=== PATIENT | male | born 1960 | race African-American/Black ===

== ENCOUNTER 2019-09-20 20:52 | Emergency (ER) | payer OTHER ==
[~2019-09-20] VITALS: Ht 188 cm; Wt 95.7 kg
[2019-09-20 21:21] VITALS: BP 148/91
[2019-09-20] MEDS ORDERED: methylPREDNISolone SOD SUCC 125 MG/2 ML VL IM ONE (22:00)
[2019-09-20] MEDS ORDERED: KETOROLAC TROMETH 60MG/2ML VIAL IM ONE (22:00)
== END 2019-09-20 23:11 | disposition home or self-care (01) ==
LOC: ER 20:52
DX: M10.9 Gout, unspecified (principal); M79.674 Pain in right toe(s)
CPT/HCPCS: 73630; 96372; 99284; J1885; J2930

== ENCOUNTER 2019-10-19 20:21 | Emergency (ER) | payer OTHER ==
[~2019-10-19] VITALS: Ht 188 cm; Wt 86.2 kg
[2019-10-19 22:35] LABS: Basophils # (auto) 0 10 ^3/uL (0-0.2); Basophils % (auto) 0.5 % (0.0-2.0); Eosinophils # (auto) 0.1 10 ^3/uL (0-0.8); Eosinophils % (auto) 1.4 % (0.0-7.0); Hematocrit 46.3 % (41.0-53.0); Hemoglobin 15.7 g/dL (13.5-17.5); Mean Corpuscular Hemoglobin 32.5 pg (28.0-32.0); Mean Corpuscular Hgb Conc. 33.9 g/dL (32.0-36.0); Mean Corpuscular Volume 95.9 fL (80.0-100.0); Monocytes # (auto) 0.5 10 ^3/uL (0-1.3); Monocytes % (auto) 6.6 % (0.0-12.0); Neutrophils # (auto) 5.1 10 ^3/uL (1.6-8.6); Neutrophils % (auto) 65.5 % (37.0-80.0); Nucleated Red Blood Cells % 0.1 %; Platelet Count (auto) 266 10^3/uL (140-450); Red Blood Cells 4.83 10^6/uL (4.5-5.90); White Blood Cell 7.8 10^3/uL (4.4-10.8)
[2019-10-19 22:52] LABS: INR 0.98 (0.9-1.15); Partial Thromboplastin Time 27.5 sec (23.64-32.05)
[2019-10-19 22:56] LABS: Alanine Aminotransferase 41 U/L (16-61); Albumin 3.4 g/dL (3.4-5.0); Amylase 43 U/L (25-115); Anion Gap 6 (5-15); Blood Urea Nitrogen 7 mg/dL (7-18); Calcium 8.7 mg/dL (8.5-10.1); Carbon Dioxide 28 mmol/L (21-32); Chloride 103 mmol/L (98-107); Glucose 87 mg/dL (74-106); Lipase 52 U/L (73-393); Potassium 3.3 mmol/L (3.5-5.1); Sodium 137 mmol/L (136-145)
[2019-10-19 23:01] LABS: Alkaline Phosphatase 105 U/L (45-117); Aspartate Aminotransferase 49 U/L (15-37); Bilirubin, Total 0.6 mg/dL (0.2-1.0); GFR African American 114 mL/min; GFR Non-African American 95 mL/min; Total Protein 8.1 g/dL (6.4-8.2)
[2019-10-20 03:43] VITALS: BP 162/109
== END 2019-10-20 03:52 | disposition home or self-care (01) ==
LOC: ER 20:21
DX: K52.9 Noninfective gastroenteritis and colitis, unspecified (principal); R11.2 Nausea with vomiting, unspecified; Z88.0 Allergy status to penicillin
CPT/HCPCS: 36415; 74176; 80053; 82150; 83605; 83690; 83735; 84484; 85025; 85610; 85730; 87040; 93005

== ENCOUNTER 2020-02-02 12:59 | Inpatient (IN) | payer OTHER ==
[~2020-02-02] VITALS: Ht 188 cm; Wt 92.0 kg
[2020-02-02] MEDS ORDERED: ONDANSETRON HCL 4 MG/2 ML VIAL IV ONE ×2 (13:15→17:00)
[2020-02-02] MEDS ORDERED: MORPHINE SULFATE 4 MG/ML SYR/VIAL IV ONE (13:15)
[2020-02-02] MEDS ORDERED: SODIUM CHLORIDE 0.9% 1,000 ML IV ONE (13:15)
[2020-02-02] MEDS ORDERED: SODIUM CHLORIDE 0.9% 1,000 ML IVB ONE (13:15)
[2020-02-02 14:05] LABS: Basophils # (auto) 0.1 10 ^3/uL (0-0.2); Eosinophils # (auto) 0.1 10 ^3/uL (0-0.8); Eosinophils % (auto) 1.4 % (0.0-7.0); Hematocrit 51.1 % (41.0-53.0); Hemoglobin 17.1 g/dL (13.5-17.5); Lymphocytes # (auto) 2.7 10 ^3/uL (0.4-5.4); Lymphocytes % (auto) 34.3 % (10.0-50.0); Mean Corpuscular Hemoglobin 31.7 pg (28.0-32.0); Mean Corpuscular Hgb Conc. 33.4 g/dL (32.0-36.0); Mean Corpuscular Volume 94.9 fL (80.0-100.0); Monocytes # (auto) 0.4 10 ^3/uL (0-1.3); Monocytes % (auto) 5.7 % (0.0-12.0); Neutrophils # (auto) 4.5 10 ^3/uL (1.6-8.6); Neutrophils % (auto) 57.6 % (37.0-80.0); Platelet Count (auto) 286 10^3/uL (140-450); Red Blood Cells 5.39 10^6/uL (4.5-5.90); Red Cell Distribution Width 14.4 % (11.8-14.3); White Blood Cell 7.9 10^3/uL (4.4-10.8)
[2020-02-02 14:20] LABS: INR 1.01 (0.9-1.15); Partial Thromboplastin Time 28.7 sec (23.0-31.2)
[2020-02-02 14:24] LABS: Albumin 3.4 g/dL (3.4-5.0); Anion Gap 5 (5-15); BUN/Creatinine Ratio 6.7; Blood Urea Nitrogen 7 mg/dL (7-18); Calcium 9.2 mg/dL (8.5-10.1); Carbon Dioxide 27 mmol/L (21-32); Chloride 104 mmol/L (98-107); GFR African American 93 mL/min; GFR Non-African American 77 mL/min; Glucose 89 mg/dL (74-106); Lipase 54 U/L (73-393); Potassium 3.4 mmol/L (3.5-5.1); Sodium 136 mmol/L (136-145)
[2020-02-02 14:29] LABS: Alanine Aminotransferase 30 U/L (16-61); Alkaline Phosphatase 109 U/L (45-117); Aspartate Aminotransferase 34 U/L (15-37); Bilirubin, Total 0.6 mg/dL (0.2-1.0); Total Protein 8.1 g/dL (6.4-8.2)
[2020-02-02] MEDS ORDERED: GASTROGRAFIN 120 ML SOL ONE (14:29)
[2020-02-02] MEDS ORDERED: PIPERACILLIN-TAZOB 3.375GM 100 ML IV ONE (14:45)
[2020-02-02] MEDS ORDERED: NITROGLYCERIN 0.4 MG SL TAB SL PRN ×2 (15:45→16:00)
[2020-02-02] MEDS ORDERED: MORPHINE SULF INJ 2 MG/ML SYRINGE 1ML IV PRN ×3 (15:45→16:00)
[2020-02-02] MEDS ORDERED: LACTATED RINGER'S 1,000 ML IV ONE ×2 (15:45→17:00)
[2020-02-02] MEDS ORDERED: LABETALOL HCL 5 MG/ML 4ML SYRINGE IV ONE ×2 (16:00→17:15)
[2020-02-02] MEDS ORDERED: PANTOPRAZOLE 40 MG/10 ML VIAL INJ IV ONE (16:00)
[2020-02-02] MEDS ORDERED: ACETAMINOPHEN 325 MG TAB PO PRN (16:00)
[2020-02-02] MEDS ORDERED: AZTREONAM 1GM INJ 1 GM in D5W 5% 50 ML IV ONE (16:00)
[2020-02-02] MEDS ORDERED: NIFEdipine 10 MG CAP PO ONE (16:00)
[2020-02-02] MEDS ORDERED: LORazepam 0.5 MG TAB PO PRN (16:00)
[2020-02-02] MEDS ORDERED: DOCUSATE SOD 100 MG CAP PO PRN (16:00)
[2020-02-02] MEDS ORDERED: metroNIDAZOLE 500MG/100ML 100 ML IV ONE (16:00)
[2020-02-02] MEDS ORDERED: HYDROcodone-ACET 5/325MG TAB PO PRN (16:00)
[2020-02-02] MEDS ORDERED: SODIUM CHLORIDE 0.9% 1,000 ML IV SCH (16:00)
[2020-02-02] MEDS ORDERED: ALUM & MAG HYDROX-SIMETH LIQ(MAALOX) 30 ML PO PRN (16:00)
[2020-02-02] MEDS ORDERED: POTASSIUM CHL 20MEQ/100ML 100 ML IV ONE (16:00)
[2020-02-02] MEDS ORDERED: hydrALAZINE HCL 25 MG TAB PO PRN (16:00)
[2020-02-02 16:30] LABS: Amphetamine Screen, Urine NEGATIVE (NEGATIVE); Barbiturate Scree,Urine NEGATIVE (NEGATIVE); Benzodiazephine Screen, Urine NEGATIVE (NEGATIVE); Cannabinoid Screen, Urine NEGATIVE (NEGATIVE)
[2020-02-02 16:31] LABS: Urine Bacteria NONE SEEN /hpf (None Seen); Urine Blood Negative /uL (Negative); Urine Hyaline Cast FEW /lpf (0 - 2); Urine Mucus FEW (None Seen); Urine Specific Gravity 1.032 (1.001-1.035); Urine WBC 1 /hpf (0 - 3)
[2020-02-02 16:34] LABS: Cocaine Screen, Urine NEGATIVE (NEGATIVE); Opiate Scree,Urine NEGATIVE (NEGATIVE); Phencyclidine Screen, Urine NEGATIVE (NEGATIVE)
[2020-02-02] MEDS ORDERED: BENZOCAINE (DENTAL) 20 % SPRAY 60ML MT ONE ×2 (16:45→17:00)
[2020-02-02] MEDS ORDERED: HYDROmorphone HCL 2 MG/ML VL ONE (16:46)
[2020-02-02] MEDS ORDERED: ONDANSETRON HCL 4 MG/2 ML VIAL ONE (16:46)
[2020-02-02] MEDS ORDERED: HYDROmorphone HCL 2 MG/ML VL IV ONE (17:00)
[2020-02-02] MEDS ORDERED: LORazepam 2MG/ML-1ML VIAL IV PRN (17:00)
[2020-02-02] MEDS: LACTATED RINGER'S 1,000 ML IV SCH (17:56)
[2020-02-02 18:06] LABS: Cholesterol 241 mg/dL (< 200); HDL Cholesterol 60 mg/dL (40-59); LDL Cholesterol 169 mg/dL (< 100); Triglycerides 114 mg/dL (< 150)
[2020-02-02] MEDS: HYDROmorphone HCL 2 MG/ML VL IV PRN (19:25)
--- NOTE | 2020-02-02 20:15 | NUR ---
Patient Brought to Unit from ER Patient is AOx4 with no complaints of pain. Patient has no s/s of distress or SOB. Patient is sitting up in bed at 90 degrees and bed is locked in lowest position. Call light is within reach. POC discussed with patient, patient verbally agreed to understanding. Will continue to monitor.
[2020-02-02] MEDS ORDERED: AZTREONAM 1GM INJ 1 GM in D5W 5% 50 ML IV SCH (22:00)
[2020-02-02] MEDS ORDERED: NIFEdipine 10 MG CAP PO SCH (22:00)
[2020-02-02] MEDS ORDERED: metroNIDAZOLE 500MG/100ML 100 ML IV SCH (22:00)
[2020-02-02 22:05] VITALS: BP 129/84
[2020-02-02] MEDS ORDERED: BENA40TA83 PO (22:14)
--- NOTE | 2020-02-02 23:30 | NUR ---
NG Tube Placed Patient requested to have the NG tube placed after speaking to his daughter on the phone. NG tube placed at 54 w/ a 16 austrian. Air heard in abdomen for placement. Chest X-ray ordered per protocol for placement.
--- NOTE | 2020-02-03 | NUR ---
Patient Complaining about NG tube - NG D/C Patient calling nurses station saying " I can't have this tube in, it hurts and I want it out." Upon entering patient's room. Patient visibly upset. Spoke with patient about the need for having the NG tube. Patient still adamant about having it out saying, "I know what it is for, I want it out now. I can't have it in any longer." NG tube has now been d/c'd due to patient refusing to keep the NG tube in. Will notify morning shift RN about attempt to communicate with physician.
[2020-02-03] MEDS: LACTATED RINGER'S 1,000 ML IV SCH ×3 (01:24→23:07)
[2020-02-03] MEDS: HYDROmorphone HCL 2 MG/ML VL IV PRN ×3 (01:33→10:23)
[2020-02-03] MEDS: ONDANSETRON HCL 4 MG/2 ML VIAL IV PRN ×2 (01:33→05:35)
--- NOTE | 2020-02-03 01:39 | NUR ---
Patient Complains of Pain Patient requests pain medication. Asked patient where his pain is and he said " Pain is on the left side or my stomach." Patient also request anti-nausea medication. Medications given as prescribed. Will Continue to monitor.
[2020-02-03 05:00] VITALS: BP 139/98
--- NOTE | 2020-02-03 07:40 | NUR ---
opening shift note Assumed care of patient from NOC RN. Patient is AOx4, no s/s of distress noted. Bed is in lowest locked position, side rails up x2, and call light within reach. Updated patient on plan of care and patient verbalized understanding. Patient stated "i just want to eat, and drink im so hungry."Educated patient regarding NPO status, patient verbalized understanding. Will continue to monitor q1hr and PRN.
--- NOTE | 2020-02-03 08:40 | NUR ---
received call from physician received call from Dr. Saeed. New orders received.
[2020-02-03 09:00] VITALS: BP 150/93
--- NOTE | 2020-02-03 09:00 | NUR ---
paged physician, awaiting call back
--- NOTE | 2020-02-03 09:15 | NUR ---
Received call back Received call back from Dr. Saeed. Updated MD regarding small bowel series, results have not been read. Per MD no small bowel series necessary, no new orders received.
[2020-02-03] MEDS ORDERED: LOSARTAN POTASSIUM 50 MG TAB PO SCH (10:00)
[2020-02-03] MEDS ORDERED: ASPirin 81 mg TAB PO SCH (10:00)
[2020-02-03] MEDS ORDERED: POTASSIUM CHL 20 Meq TABLET PO SCH (10:00)
[2020-02-03] MEDS: PANTOPRAZOLE 40 MG/10 ML VIAL INJ IV SCH (10:23)
--- NOTE | 2020-02-03 10:45 | NUR ---
Physician rounding Dr. Orantes at nurses station. Per MD patient can be started on clear liquid diet. No other orders received.
--- NOTE | 2020-02-03 12:35 | NUR ---
Physician rounding Dr. Viveros at bedside. MD updated patient on plan of care, patient verbalized understanding. Per MD discontinue athletic monitor, if patient tolerates lunch patient may be advanced to full liquid diet. Will follow through.
[2020-02-03] MEDS ORDERED: MORPHINE SULF INJ 2 MG/ML SYRINGE 1ML IV PRN (12:45)
[2020-02-03] MEDS ORDERED: HYDROcodone-ACET 5/325MG TAB PO PRN (12:45)
[2020-02-03] MEDS ORDERED: BENAZEPRIL HCL 10 MG TAB PO ONE ×2 (12:45→17:15)
[2020-02-03 13:00] VITALS: BP 155/102
--- NOTE | 2020-02-03 14:37 | NUR ---
patient status patient b/p noted to be at 159/109, no PRN B/P medications scheduled, will notify attending MD.
--- NOTE | 2020-02-03 16:41 | NUR ---
CLIVE GERARD Placed page to Dr. Viveros. Awaiting call back.
[2020-02-03 16:46] VITALS: BP 159/109
--- NOTE | 2020-02-03 17:07 | NUR ---
received call back Received call back from Dr. Viveros. Updated MD regarding b/p of 159/109. New orders received, will follow thorough.
--- NOTE | 2020-02-03 18:15 | NUR ---
patient education Patient stated "You guys are starving me, I am so hungry. Doctor said I can have solid food, I want to eat!" Educated patient that Dr. Viveros stated patient can be advanced to full liquid for dinner, and educated patient what a full liquid diet means. Patient verbalized understanding, stated "I will leave tomorrow if i do not get food." Educated patient regarding D/C and patient verbalized understanding.
--- NOTE | 2020-02-03 19:06 | NUR ---
end of shift note Endorsed care to NOC ALONA Gomez. No s/s of distress noted.
[2020-02-03 22:00] VITALS: BP 171/96
[2020-02-03 23:00] VITALS: BP 145/90
--- NOTE | 2020-02-04 04:45 | NUR ---
PT EXPRESSED HIS CONCERN ABOUT HIS B/P BEING ELEVATED. PT STATES THAT HE TAKES BENAZEPRIL 40MG PO DAILY AND HAS NOT RECEIVED THAT MEDICATION AT THAT DOSE SINCE HE HAS BEEN ADMITTED . PT IS REQUESTING HIS 10AM MEDICATION NOW. B/P =163/102.
[2020-02-04 05:00] VITALS: BP 163/109
[2020-02-04 05:50] VITALS: BP 139/81
--- NOTE | 2020-02-04 05:50 | NUR ---
RECHECKED PT'S B/P AT THIS TIME. B/P= 139/81.
[2020-02-04 06:01] VITALS: BP 147/77
[2020-02-04 06:26] LABS: Basophils # (auto) 0.1 10 ^3/uL (0-0.2); Basophils % (auto) 1.4 % (0.0-2.0); Eosinophils # (auto) 0.2 10 ^3/uL (0-0.8); Eosinophils % (auto) 4.4 % (0.0-7.0); Hematocrit 42.6 % (41.0-53.0); Hemoglobin 14.1 g/dL (13.5-17.5); Lymphocytes # (auto) 1.8 10 ^3/uL (0.4-5.4); Lymphocytes % (auto) 33.2 % (10.0-50.0); Mean Corpuscular Hemoglobin 31.4 pg (28.0-32.0); Mean Corpuscular Hgb Conc. 33.1 g/dL (32.0-36.0); Mean Corpuscular Volume 94.9 fL (80.0-100.0); Monocytes # (auto) 0.4 10 ^3/uL (0-1.3); Monocytes % (auto) 7.5 % (0.0-12.0); Neutrophils % (auto) 53.5 % (37.0-80.0); Nucleated Red Blood Cells % 0.1 %; Platelet Count (auto) 247 10^3/uL (140-450); Red Blood Cells 4.49 10^6/uL (4.5-5.90); Red Cell Distribution Width 14.1 % (11.8-14.3); White Blood Cell 5.5 10^3/uL (4.4-10.8)
[2020-02-04 06:43] LABS: BUN/Creatinine Ratio 7.3; Calcium 8.2 mg/dL (8.5-10.1); Potassium 3.5 mmol/L (3.5-5.1)
--- NOTE | 2020-02-04 07:40 | NUR ---
opening shift note Assumed care of patient from NOC RN. Patient is AOx4, no s/s of distress noted. Bed is in lowest locked position, side rails up x2, and call light within reach. Updated patient on plan of care and patient verbalized understanding. Patient stated "i will leave if i dont get regular food today" Educated patient regarding NPO status, patient verbalized understanding. Will continue to monitor q1hr and PRN.
[2020-02-04 08:00] VITALS: BP 151/86
[2020-02-04] MEDS: LACTATED RINGER'S 1,000 ML IV SCH (08:45)
[2020-02-04] MEDS: PANTOPRAZOLE 40 MG/10 ML VIAL INJ IV SCH (09:26)
[2020-02-04] MEDS ORDERED: BENAZEPRIL HCL 10 MG TAB PO SCH ×2 (10:00)
--- NOTE | 2020-02-04 10:51 | NUR ---
md vaughn and md barriga rounded on patient, upgraded patient diet if pt can tolerate pt will discharge today
--- NOTE | 2020-02-04 11:47 | NUR ---
paged md vaughn regarding pt blood pressure 164/96 awaiting call back
--- NOTE | 2020-02-04 11:58 | NUR ---
called md vaughn to inform hi of no hydralizine iv available awaiting call back
[2020-02-04 12:00] VITALS: BP 164/96
[2020-02-04] MEDS ORDERED: hydrALAZINE HCL 20 MG/ML VL IV ONE (12:00)
[2020-02-04] MEDS ORDERED: LABETALOL HCL 5 MG/ML 4ML SYRINGE IV ONE (12:15)
--- NOTE | 2020-02-04 14:20 | NUR ---
PT DISCHARGED HOME PT AMBULATORY NO RESPIRATORY DISTRESS NOTED NO PAIN OR DISCOMFORT NOTED, IV IN LEFT AC REMOVED PRESSURE DRESSING IN PLACE, EDUCATION REVIEWED WITH PATIENT AND INFORMED HIM OF HIS FOLLOW UP APPOINTMENT, PT VEREBALIZED UNDERSTANDING
== END 2020-02-04 14:20 | disposition home or self-care (01) | DRG 390 ==
LOC: ER 12:59 → TELE 13:00 → TELE-CENTR 20:15 → CENTRAL 02-03 12:53
PROVIDERS: ADMIT Hospitalist; ATTEND Internal Medicine
PROC: 0D9670Z Drainage of Stomach with Drainage Device, Via Natural or Artificial Opening (ICD-10-PCS; principal; 2020-02-03)
DX: K56.600 Partial intestinal obstruction, unspecified as to cause (principal); K52.9 Noninfective gastroenteritis and colitis, unspecified; F17.210 Nicotine dependence, cigarettes, uncomplicated; E87.6 Hypokalemia; M1A.9XX1 Chronic gout, unspecified, with tophus (tophi); I10 Essential (primary) hypertension; E86.0 Dehydration; E66.9 Obesity, unspecified; Z68.26 Body mass index [BMI] 26.0-26.9, adult; Z88.0 Allergy status to penicillin; Z71.6 Tobacco abuse counseling; E78.5 Hyperlipidemia, unspecified
CPT/HCPCS: 36415; 71045; 74176; 74250; 80048; 80053; 80061; 80307; 81001; 83036; 83605; 83690; 84484; 84550; 85025; 85610; 85730; 87040; 87086; 96361; 96374; 96375; 96376; C9113; G0378; J2405; J7060

== ENCOUNTER 2020-02-21 09:00 | Inpatient (IN) | payer OTHER ==
[~2020-02-21] VITALS: Ht 188 cm; Wt 85.4 kg
[~2020-02-21 09:00] MED LIST: BENA40TA83 PO
[2020-02-21] MEDS ORDERED: SODIUM CHLORIDE 0.9% 1,000 ML IV ONE ×4 (09:30→12:15)
[2020-02-21 10:00] LABS: Basophils # (auto) 0 10 ^3/uL (0-0.2); Basophils % (auto) 0.2 % (0.0-2.0); Eosinophils # (auto) 0 10 ^3/uL (0-0.8); Lymphocytes # (auto) 1.7 10 ^3/uL (0.4-5.4); Mean Corpuscular Volume 93.8 fL (80.0-100.0)
[2020-02-21] MEDS ORDERED: InsuLIN REG 1unit/0.01ml Soln (100units/ml) IV ONE (10:00)
[2020-02-21 10:02] LABS: Eosinophils % (auto) 0.1 % (0.0-7.0); Hemoglobin 19.6 g/dL (13.5-17.5); Lymphocytes % (auto) 15.9 % (10.0-50.0); Mean Corpuscular Hemoglobin 30.6 pg (28.0-32.0); Mean Corpuscular Hgb Conc. 32.6 g/dL (32.0-36.0); Monocytes # (auto) 0.7 10 ^3/uL (0-1.3); Monocytes % (auto) 7.1 % (0.0-12.0); Neutrophils % (auto) 76.7 % (37.0-80.0); Nucleated Red Blood Cells % 0.1 %; Platelet Count (auto) 369 10^3/uL (140-450); Red Cell Distribution Width 14.4 % (11.8-14.3); White Blood Cell 10.4 10^3/uL (4.4-10.8)
[2020-02-21 10:18] LABS: Albumin 4.8 g/dL (3.4-5.0); BUN/Creatinine Ratio 4.7; Calcium 10.9 mg/dL (8.5-10.1); Potassium 3.3 mmol/L (3.5-5.1)
[2020-02-21 10:21] LABS: Bilirubin, Total 0.6 mg/dL (0.2-1.0); Total Protein 11.3 g/dL (6.4-8.2)
[2020-02-21] MEDS ORDERED: ONDANSETRON HCL 4 MG/2 ML VIAL IV ONE (11:15)
[2020-02-21] MEDS ORDERED: metroNIDAZOLE 500MG/100ML 100 ML IV ONE (11:45)
[2020-02-21] MEDS ORDERED: MORPHINE SULF INJ 2 MG/ML SYRINGE 1ML IV PRN (12:15)
[2020-02-21] MEDS ORDERED: SOD CHL 0.9%/ KCL 20MEQ 1,000 ML IV ONE (12:15)
[2020-02-21] MEDS ORDERED: LORazepam 2MG/ML-1ML VIAL IV ONE (12:15)
[2020-02-21] MEDS ORDERED: NITROGLYCERIN 0.4 MG SL TAB SL PRN (12:15)
[2020-02-21] MEDS: LABETALOL HCL 5 MG/ML 4ML SYRINGE IV PRN (15:53)
--- NOTE | 2020-02-21 20:45 | NUR ---
Patient arrived to room 212A Patient transported by wheel chair and ambulated to the bed. Patient is A&Ox4, respirations even and non-labored with no s/s of distress at this time. Patient on RA and has a 20 gauge to the LAC S.L. Telemetry #29, SR @ 70s. Discussed POC with patient who verbalized understanding. Oriented patient to the room, bathroom, call light, and bed controls. Patient ambulated without assistance to the restroom with a balanced and even gait. Advised patient to call for assistance if he should need help. Bed in lowest locked position with 2 side rails up, call light within reach. Will continue to monitor Q1hr and PRN.
[2020-02-21 22:12] VITALS: BP 150/83
--- NOTE | 2020-02-21 22:21 | NUR ---
Discussed NGT with patient. Patient stated that the ED attempted to place an NGT prior to his admission to the room. He stated that he was not willing to have the NGT placed without being sedated and refused the procedure.
[2020-02-21 22:23] VITALS: BP 150/83
[2020-02-21] MEDS ORDERED: BENA40TA7 PO (22:33)
[2020-02-21] MEDS: metroNIDAZOLE 500MG/100ML 100 ML IV SCH (22:56)
--- NOTE | 2020-02-21 23:00 | NUR ---
Patient refusing borja catheter Patient stated that he did not want to have a borja placed. He stated that he was urinating without a problem. Urinals bedside.
--- NOTE | 2020-02-22 04:19 | NUR ---
Switched out Telemetry box Sent Box #1, received Box #37 and applied to patient.
[2020-02-22 05:00] VITALS: BP 159/91
[2020-02-22] MEDS: metroNIDAZOLE 500MG/100ML 100 ML IV SCH ×3 (05:35→20:39)
[2020-02-22] MEDS: LABETALOL HCL 5 MG/ML 4ML SYRINGE IV PRN ×2 (05:56→19:14)
--- NOTE | 2020-02-22 07:00 | NUR ---
Patient sleeping Patient respirations even and non-labored with no s/s of distress at this time.
[2020-02-22 07:12] LABS: INR 0.98 (0.9-1.15); Partial Thromboplastin Time 28.6 sec (23.0-31.2)
[2020-02-22 07:20] LABS: Basophils # (auto) 0 10 ^3/uL (0-0.2); Basophils % (auto) 0.2 % (0.0-2.0); Eosinophils # (auto) 0 10 ^3/uL (0-0.8); Eosinophils % (auto) 0.4 % (0.0-7.0); Hematocrit 53.5 % (41.0-53.0); Hemoglobin 17.9 g/dL (13.5-17.5); Lymphocytes # (auto) 1.3 10 ^3/uL (0.4-5.4); Lymphocytes % (auto) 18.4 % (10.0-50.0); Mean Corpuscular Hemoglobin 31.3 pg (28.0-32.0); Mean Corpuscular Hgb Conc. 33.5 g/dL (32.0-36.0); Mean Corpuscular Volume 93.6 fL (80.0-100.0); Monocytes % (auto) 15.3 % (0.0-12.0); Neutrophils # (auto) 4.5 10 ^3/uL (1.6-8.6); Neutrophils % (auto) 65.7 % (37.0-80.0); Nucleated Red Blood Cells % 0.1 %; Platelet Count (auto) 323 10^3/uL (140-450); Red Blood Cells 5.71 10^6/uL (4.5-5.90); Red Cell Distribution Width 13.8 % (11.8-14.3); White Blood Cell 6.8 10^3/uL (4.4-10.8)
[2020-02-22 07:23] LABS: BUN/Creatinine Ratio 4.8; Calcium 9.4 mg/dL (8.5-10.1); Potassium 3.4 mmol/L (3.5-5.1)
--- NOTE | 2020-02-22 07:49 | NUR ---
LAB CALLED BLOOD SUGAR 48 PAGED HOSPITALIST
--- NOTE | 2020-02-22 07:51 | NUR ---
LAB CALLED BLOOD TO CORRECT ERROR BLOOD SUGAR 109.
--- NOTE | 2020-02-22 08:00 | NUR ---
Opening Shift Note Assumed care of patient, awake and alert. No S/S of distress/SOB or pain. Patient NPO awaiting surgical consult. Patient continued to refuse NGT insertion and borja catheter.Instructed on POC and to call for assist PRN, will continue to monitor for changes Q1hr and PRN. Addendum: 02/22/20 at 1604 by ROSA URRUTIA RN PATIENT FOUND WITHOUT IV. NO BLEEDING NOTED TO ANY EXTREMITIES, NO SIGN OF IV.
[2020-02-22 09:00] VITALS: BP 125/73
[2020-02-22] MEDS: PANTOPRAZOLE 40 MG/10 ML VIAL INJ IV SCH (10:00)
[2020-02-22] MEDS ORDERED: GASTROGRAFIN 120 ML SOL ONE (10:16)
--- NOTE | 2020-02-22 10:30 | NUR ---
NGT and Nj placement patient stated " you will have to knock me out before you put those in me!". Patient had 50 cc clear , yellow urine in urinal and stated, " i will walk to the bathroom not going to use the urinal!. Instructed patient to call when he needs to use the restroom.
--- NOTE | 2020-02-22 11:00 | NUR ---
patient taken by automotive technician instructor via wheelchair for small bowel series
--- NOTE | 2020-02-22 12:15 | NUR ---
returned from [facility] bowel series.
--- NOTE | 2020-02-22 12:30 | NUR ---
STRICT INTAKE AND OUT PUT MONITORING PER DR FERNANDEZ
--- NOTE | 2020-02-22 12:55 | NUR ---
Nutrition Assessment/Consult Notes Please refer to link for full assessment notes. Est Energy needs: [id number] kcals (25-30 kcal/kgBW) Est Protein needs: 43-68 gms/day (0.5-0.8 gm/kgBW) Will continue to monitor and reassess prn. Addendum: 02/22/20 at [address] Amended: Links added.
--- NOTE | 2020-02-22 12:55 | NUR ---
patient reported on e episode of diarrhea. this rn explained the small bowel series can cause diarrhea; patient denied pain, abdomen nontender. will continue to monitor
--- NOTE | 2020-02-22 16:04 | NUR ---
IV insertion IV access obtained, via clean sterile technique by inserting 20 gauge catheter at RFA after 1 attempt(s). IV secured properly. NS at 75 ml No trauma to site. Patient tolerated well.
[2020-02-22] MEDS: SODIUM CHLORIDE 0.9% 1,000 ML IV SCH (16:46)
[2020-02-22 16:54] VITALS: BP 152/87
--- NOTE | 2020-02-22 19:00 | NUR ---
endorsed care to night carmella clay
--- NOTE | 2020-02-22 19:04 | NUR ---
Opening Shift Note Assumed care of patient, awake and alert. Bed locked in lowest position, side rails up X2, call light within reach. No S/S of distress/SOB or pain. Instructed on POC and to call for assist PRN, will continue to monitor for changes Q1hr and PRN.
[2020-02-22 20:00] VITALS: BP 156/88
[2020-02-22 22:00] VITALS: BP 148/83
--- NOTE | 2020-02-22 23:17 | NUR ---
ROUNDS: PATIENT IS ASLEEP IN BED. NO SIGNS OF DISTRESS OR SOB.
--- NOTE | 2020-02-23 02:28 | NUR ---
ROUNDS: PATIENT ASLEEP ON THE RIGHT SIDE. NO SIGNS OF DISTRESS/ SOB
[2020-02-23 05:00] VITALS: BP 139/92
[2020-02-23] MEDS: metroNIDAZOLE 500MG/100ML 100 ML IV SCH ×3 (05:01→21:01)
[2020-02-23 08:00] VITALS: BP 148/83
--- NOTE | 2020-02-23 08:00 | NUR ---
ASSESSMENT NOTE PT IS ALERT ORIENTED X4, RESTING IN LOW GEORGE POSITION NO DISTRESS NOTED, GENERALIS WEAKNESS NOTED, ABLE TO VERBALIS HIS NEEDS AND SELF REPOSITION, AMBULATE NEEDED, PAIN 0/10, CALL LIGHT WITHIN REACH
--- NOTE | 2020-02-23 08:30 | NUR ---
BM PT HAS LOOSE BM X2, NO DISTRESS NOTED
[2020-02-23] MEDS: PANTOPRAZOLE 40 MG/10 ML VIAL INJ IV SCH (08:37)
[2020-02-23 09:00] VITALS: BP 145/88
--- NOTE | 2020-02-23 09:00 | NUR ---
DR BILLY / NEUROLOGIST AT BED SIDE FOLLOWING UP ON PT
--- NOTE | 2020-02-23 09:15 | NUR ---
DR ANTHONY AT BED SIDE FOLLOWING UP ON PT WITH NEW ORDERS TO START PT ON CLEAR LIQUID DIET
--- NOTE | 2020-02-23 10:05 | NUR ---
REPORT GIVEN TO DENISE Lemons RN , CONTINUE CARE
--- NOTE | 2020-02-23 10:06 | NUR ---
K 3.4 NEW ORDER OF K PO OBTAIN
[2020-02-23] MEDS ORDERED: POTASSIUM CHL 20 Meq TABLET PO ONE ×2 (10:15→12:45)
[2020-02-23 11:01] LABS: Urine Bacteria NONE SEEN /hpf (None Seen); Urine Blood TRACE /uL (Negative); Urine Hyaline Cast FEW /lpf (0 - 2); Urine Mucus FEW (None Seen); Urine Specific Gravity 1.022 (1.001-1.035); Urine WBC 3 /hpf (0 - 3)
[2020-02-23 11:13] LABS: Protein, Urine 98.8 mg/dL (0.0-11.9)
[2020-02-23 11:46] LABS: BUN/Creatinine Ratio 17.6; Calcium 8.6 mg/dL (8.5-10.1)
[2020-02-23 12:08] LABS: Potassium 2.7 mmol/L (3.5-5.1)
[2020-02-23 13:00] VITALS: BP 154/89
[2020-02-23] MEDS: SODIUM CHLORIDE 0.9% 1,000 ML IV SCH ×2 (15:07)
--- NOTE | 2020-02-23 19:01 | NUR ---
Opening Shift Note Assumed care of patient, awake and alert. Patient on room air, oxygen saturation 95% No S/S of distress/SOB or pain. Bed locked in lowest position, side rails up X2, call light within reach. Instructed on POC and to call for assist PRN, will continue to monitor for changes Q1hr and PRN.
[2020-02-23 20:00] VITALS: BP 150/87
[2020-02-23 22:00] VITALS: BP 150/87
[2020-02-24] MEDS: SODIUM CHLORIDE 0.9% 1,000 ML IV SCH (02:44)
[2020-02-24] MEDS: metroNIDAZOLE 500MG/100ML 100 ML IV SCH (04:56)
[2020-02-24 05:00] VITALS: BP 145/88
[2020-02-24] MEDS ORDERED: SODIUM CHLORIDE LOCK 0 ML ONE (08:49)
[2020-02-24] MEDS ORDERED: MIDAZOLAM HCL 5 MG/ML-1ML VIAL ONE (08:49)
[2020-02-24] MEDS ORDERED: diphenhdrAMINE HCL 50 MG/1 ML VL ONE (08:49)
[2020-02-24] MEDS ORDERED: fentaNYL CITRATE 100 MCG/2 ML VL ONE (08:50)
[2020-02-24 09:00] VITALS: BP 144/94
[2020-02-24 09:01] LABS: Calcium 8.8 mg/dL (8.5-10.1)
[2020-02-24 09:04] LABS: Potassium 2.8 mmol/L (3.5-5.1)
[2020-02-24] MEDS: PANTOPRAZOLE 40 MG/10 ML VIAL INJ IV SCH (09:52)
[2020-02-24] MEDS ORDERED: POTASSIUM CHL 20 Meq TABLET PO ONE ×2 (10:00)
--- NOTE | 2020-02-24 11:38 | NUR ---
Discharge instructions given as ordered. Encourage to follow up with PMD as instructed. All questions and concerns addressed. Patient verbalized understanding. IV removed with catheter intact, pressure dressing applied. Telemetry unit returned to ICU. Patient ambulated to [facility] to fill his prescriptions and wait for his ride. No distress noted at time of departure.
== END 2020-02-24 11:30 | disposition home or self-care (01) | DRG 388 ==
LOC: ER 09:00 → TELE 09:01 → TELE-CENTR 20:23
PROVIDERS: ADMIT Nurse Practitioner Acute Care; ATTEND Family Medicine
PROC: 0D9670Z Drainage of Stomach with Drainage Device, Via Natural or Artificial Opening (ICD-10-PCS; principal; 2020-02-21)
DX: K56.600 Partial intestinal obstruction, unspecified as to cause (principal); N17.0 Acute kidney failure with tubular necrosis; E87.2 Acidosis; E87.1 Hypo-osmolality and hyponatremia; R10.9 Unspecified abdominal pain; R73.9 Hyperglycemia, unspecified; E87.6 Hypokalemia; E86.0 Dehydration; M10.9 Gout, unspecified; E78.00 Pure hypercholesterolemia, unspecified; E78.5 Hyperlipidemia, unspecified; F17.210 Nicotine dependence, cigarettes, uncomplicated; I12.9 Hypertensive chronic kidney disease with stage 1 through stage 4 chronic kidney disease, or unspecified chronic kidney disease; K44.9 Diaphragmatic hernia without obstruction or gangrene; K52.9 Noninfective gastroenteritis and colitis, unspecified; K57.30 Diverticulosis of large intestine without perforation or abscess without bleeding; N18.9 Chronic kidney disease, unspecified; Z88.0 Allergy status to penicillin
CPT/HCPCS: 36415; 71045; 74176; 74250; 76775; 80048; 80053; 81001; 82010; 82150; 82570; 82962; 83036; 83690; 84156; 85025; 85610; 85730; 87081; 93005; 99291; C9113; G0378; J1815; J2250; J2405; J3490

== ENCOUNTER 2020-03-12 03:54 | Inpatient (IN) | payer OTHER ==
[~2020-03-12] VITALS: Ht 185.4 cm; Wt 81.5 kg
[2020-03-12] VITALS (54 sets, daily range): BP systolic 81–165; BP diastolic 36–85
[~2020-03-12 03:54] MED LIST changes: +BENA40TA7 PO; -BENA40TA83 PO
[2020-03-12] MEDS ORDERED: SODIUM CHLORIDE 0.9% 1,000 ML IV ONE ×2 (05:00→06:15)
[2020-03-12 05:03] LABS: Basophils # (auto) 0.1 10 ^3/uL (0-0.2); Basophils % (auto) 0.6 % (0.0-2.0); Eosinophils # (auto) 0.3 10 ^3/uL (0-0.8); Eosinophils % (auto) 2.8 % (0.0-7.0); Hematocrit 42.1 % (41.0-53.0); Hemoglobin 13.6 g/dL (13.5-17.5); Lymphocytes # (auto) 5.5 10 ^3/uL (0.4-5.4); Lymphocytes % (auto) 49.9 % (10.0-50.0); Mean Corpuscular Hemoglobin 30.6 pg (28.0-32.0); Mean Corpuscular Hgb Conc. 32.3 g/dL (32.0-36.0); Mean Corpuscular Volume 94.5 fL (80.0-100.0); Monocytes # (auto) 0.3 10 ^3/uL (0-1.3); Monocytes % (auto) 2.9 % (0.0-12.0); Neutrophils # (auto) 4.8 10 ^3/uL (1.6-8.6); Neutrophils % (auto) 43.8 % (37.0-80.0); Nucleated Red Blood Cells % 0.1 %; Platelet Count (auto) 158 10^3/uL (140-450); Red Blood Cells 4.46 10^6/uL (4.5-5.90); Red Cell Distribution Width 13.3 % (11.8-14.3)
[2020-03-12 05:22] LABS: Albumin 2.4 g/dL (3.4-5.0); Calcium 8.3 mg/dL (8.5-10.1); Potassium 3.1 mmol/L (3.5-5.1)
[2020-03-12 05:28] LABS: BUN/Creatinine Ratio 4.4; Bilirubin, Total 0.4 mg/dL (0.2-1.0)
[2020-03-12 05:34] LABS: Lactic Acid w/Reflex 10.2 mmol/L (0.4-2.0)
[2020-03-12] MEDS ORDERED: cefTRIAXone 1GM/50ML D5W 50 ML IV ONE (06:15)
[2020-03-12] MEDS ORDERED: VANCOMYCIN 1GM/250ML 250 ML IV ONE (06:15)
[2020-03-12 06:53] LABS: INR 1.4 (0.9-1.15); Partial Thromboplastin Time 52.5 sec (23.0-31.2)
[2020-03-12] MEDS ORDERED: SODIUM BICARBONATE 8.4 % INJ 50ML VIAL IV ONE ×2 (07:13→07:17)
[2020-03-12] MEDS ORDERED: MIDAZOLAM HCL 5 MG/ML-1ML VIAL ONE (07:19)
[2020-03-12] MEDS ORDERED: MIDAZOLAM DRIP 50 mg/50mL 50 ML IV ONE (07:20)
[2020-03-12] MEDS ORDERED: fentaNYL Drip 2500mCg/250mlNS 250 ML IV ONE (08:11)
[2020-03-12] MEDS ORDERED: NOREPINEPHRINE 8 MG/250ML KIT 250 ML IV ONE (08:13)
[2020-03-12] MEDS ORDERED: SODIUM BICARBONATE 8.4% INJ 50ML SYRINGE ONE (08:32)
[2020-03-12 08:34] LABS: Urine WBC None Seen /hpf (0 - 3)
[2020-03-12] MEDS: NOREPINEPHRINE 8 MG/250ML KIT 250 ML IV SCH ×4 (08:41→22:00)
[2020-03-12] MEDS: MIDAZOLAM DRIP 50 mg/50mL 50 ML IV SCH ×4 (08:44→17:32)
[2020-03-12 08:54] LABS: Urine Bacteria NONE SEEN /hpf (None Seen); Urine Blood 1+ /uL (Negative); Urine Mucus FEW (None Seen); Urine Sperm PRESENT /hpf (None Seen)
[2020-03-12] MEDS ORDERED: SODIUM CHLORIDE 0.9% 2,000 ML IV ONE (09:00)
[2020-03-12] MEDS ORDERED: NITROGLYCERIN 0.4 MG SL TAB SL PRN (09:15)
[2020-03-12] MEDS ORDERED: MORPHINE SULF INJ 2 MG/ML SYRINGE 1ML IV PRN (09:15)
[2020-03-12] MEDS ORDERED: POTASSIUM CHL 20MEQ/100ML 100 ML IV ONE ×2 (09:30→10:00)
[2020-03-12] MEDS: fentaNYL Drip 2500mCg/250mlNS 250 ML IV SCH (09:30)
[2020-03-12] MEDS ORDERED: metroNIDAZOLE 500MG/100ML 100 ML IV ONE (09:30)
[2020-03-12] MEDS ORDERED: LORazepam 2MG/ML-1ML VIAL IV PRN (10:00)
[2020-03-12] MEDS ORDERED: FAMOTIDINE (10MG/ML) 2ML VL IV SCH (10:00)
[2020-03-12] MEDS ORDERED: MEROPENEM 1GM IVPB 100 ML IV ONE (10:00)
[2020-03-12] MEDS ORDERED: PANTOPRAZOLE 40 MG/10 ML VIAL INJ IV SCH (10:00)
[2020-03-12] MEDS ORDERED: ENOXAPARIN SOD 40 MG/0.4 ML SYRINGE SC SCH (10:00)
[2020-03-12] MEDS ORDERED: VANCOMYCIN PER PHARMACY 0 MG IV SCH (10:00)
[2020-03-12] MEDS ORDERED: BENA20TA14 PO (10:25)
[2020-03-12] MEDS ORDERED: PANT40T PO (10:26)
[2020-03-12] MEDS ORDERED: ONDA-143 PO (10:26)
[2020-03-12] MEDS ORDERED: ATOR40TA52 PO (10:26)
[2020-03-12] MEDS ORDERED: METO5TAB2 PO (10:26)
[2020-03-12] MEDS: SOD CHL 0.9%/ KCL 20MEQ 1,000 ML IV SCH ×2 (11:33→23:20)
[2020-03-12] MEDS: VASOPRESSIN 50 UNITS in D5W 5% 247.5 ML IV SCH ×2 (11:45→15:54)
[2020-03-12] MEDS ORDERED: NOREPINEPHRINE BITARTRATE 1 ML IV ONE (11:47)
--- NOTE | 2020-03-12 12:05 | NUR ---
Admit to ICU from ER on vent PIERCE MELGAR SR Tadmitted to ICU via gurney on cardiac cath technician, intubated and being bagged by Respiratory Therapist. Patient transfered to bed, connected to mechanical ventilator by therapist, JUAN F at bedside. Patient connected to ICU monitoring, weighed by bedscale, oriented to Rui thorne RN, unit, ventilator and sedation.
[2020-03-12 12:11] LABS: Lactic Acid w/Reflex 6.9 mmol/L (0.4-2.0)
[2020-03-12] MEDS: MEROPENEM 1GM IVPB 100 ML IV SCH ×2 (12:32→22:09)
[2020-03-12] MEDS: HYDROCORTISONE SOD SUCC 100 MG/2ML INJ VIAL IV SCH ×3 (12:32→23:55)
[2020-03-12] MEDS ORDERED: DOPamine 1600mCg/ml 400MG/250ml NSorD5 KIT/BAG IV ONE (13:10)
[2020-03-12] MEDS ORDERED: NALOXONE HCL 1MG/ML 2ML SYRINGE IV ONE (13:10)
[2020-03-12] MEDS ORDERED: SODIUM BICARBONATE 8.4% INJ 50ML SYRINGE IV ONE (13:10)
[2020-03-12] MEDS ORDERED: EPINEPHrine HCL 1 MG/10 ML SYRG IV ONE (13:10)
--- NOTE | 2020-03-12 13:11 | NUR ---
DR. OAKES PAGED AWAITING CALLBACK
--- NOTE | 2020-03-12 14:14 | NUR ---
DR. POWERS PAGED REGARDING FAMILY REQUEST TO TRANSFER PATIENT TO [facility] AWAITING CALLBACK
[2020-03-12 14:18] LABS: Basophils # (auto) 0.1 10 ^3/uL (0-0.2); Basophils % (auto) 0.9 % (0.0-2.0); Eosinophils # (auto) 0 10 ^3/uL (0-0.8); Eosinophils % (auto) 0.3 % (0.0-7.0); Hematocrit 40.1 % (41.0-53.0); Hemoglobin 13.1 g/dL (13.5-17.5); Lymphocytes # (auto) 0.9 10 ^3/uL (0.4-5.4); Mean Corpuscular Hemoglobin 30.5 pg (28.0-32.0); Mean Corpuscular Hgb Conc. 32.7 g/dL (32.0-36.0); Mean Corpuscular Volume 93.2 fL (80.0-100.0); Monocytes # (auto) 0.5 10 ^3/uL (0-1.3); Monocytes % (auto) 6.3 % (0.0-12.0); Neutrophils # (auto) 6.1 10 ^3/uL (1.6-8.6); Neutrophils % (auto) 80.5 % (37.0-80.0); Nucleated Red Blood Cells % 0.1 %; Platelet Count (auto) 143 10^3/uL (140-450); Red Blood Cells 4.31 10^6/uL (4.5-5.90); Red Cell Distribution Width 13.5 % (11.8-14.3); White Blood Cell 7.5 10^3/uL (4.4-10.8)
--- NOTE | 2020-03-12 14:18 | NUR ---
FAMILY DAUGHTER UPDATED ON PATIENT STATUS. ALL QUESTIONS AND CONCERNS ADDRESSED AT THIS TIME
--- NOTE | 2020-03-12 14:21 | NUR ---
DR. PRIYA SANTOS
[2020-03-12] MEDS ORDERED: ENOXAPARIN SOD 40 MG/0.4 ML SYRINGE SC ONE (14:30)
[2020-03-12 14:41] LABS: BUN/Creatinine Ratio 7.5; Calcium 6.5 mg/dL (8.5-10.1); Potassium 4.9 mmol/L (3.5-5.1)
[2020-03-12] MEDS: SODIUM BICARBONATE 50ML VIAL 150 ML in D5W 5% 1,000 ML IV SCH (14:45)
--- NOTE | 2020-03-12 16:29 | NUR ---
ULTRASOUND AT BEDSIDE
--- NOTE | 2020-03-12 16:43 | NUR ---
DR. MANN AT BEDSIDE
[2020-03-12 17:51] LABS: Hepatitis A Ab IgM Negative; Hepatitis B Core IgM Negative
[2020-03-12 17:52] LABS: Hepatitis C Antibody Negative (Negative)
[2020-03-12] MEDS: PHENYLEPHRINE IV 250 ML IV SCH (18:00)
--- NOTE | 2020-03-12 20:10 | NUR ---
Cristo RAMIREZ AT BEDSIDE ASSESSING PATIENT MD AWARE OF PATIENT NOT PRODUCING URINE. NO NEW ORDERS AT THIS TIME
[2020-03-12] MEDS: ENOXAPARIN SOD 80 MG/0.8ML SYRINGE SC SCH (22:09)
[2020-03-13] VITALS (108 sets, daily range): BP systolic 92–122; BP diastolic 63–90
[2020-03-13] MEDS: SODIUM BICARBONATE 50ML VIAL 150 ML in D5W 5% 1,000 ML IV SCH (00:38)
[2020-03-13] MEDS ORDERED: VANCOMYCIN 1GM/250ML 250 ML IV SCH (01:00)
[2020-03-13] MEDS: MIDAZOLAM DRIP 50 mg/50mL 50 ML IV SCH ×3 (01:01→17:48)
[2020-03-13] MEDS: NOREPINEPHRINE 8 MG/250ML KIT 250 ML IV SCH ×3 (01:48→12:38)
[2020-03-13] MEDS: PHENYLEPHRINE IV 250 ML IV SCH ×3 (02:20→19:00)
--- NOTE | 2020-03-13 04:19 | NUR ---
CARES FULL CHG BATH, FARHAT CARE, PATIENT TOLERATED CARES WELL.
[2020-03-13 04:28] LABS: Basophils # (auto) 0 10 ^3/uL (0-0.2); Basophils % (auto) 0.3 % (0.0-2.0); Eosinophils # (auto) 0 10 ^3/uL (0-0.8); Eosinophils % (auto) 0.1 % (0.0-7.0); Hematocrit 42.1 % (41.0-53.0); Hemoglobin 13.6 g/dL (13.5-17.5); Lymphocytes # (auto) 1.6 10 ^3/uL (0.4-5.4); Mean Corpuscular Hemoglobin 30.3 pg (28.0-32.0); Mean Corpuscular Hgb Conc. 32.2 g/dL (32.0-36.0); Mean Corpuscular Volume 94.1 fL (80.0-100.0); Monocytes # (auto) 0.6 10 ^3/uL (0-1.3); Monocytes % (auto) 5.9 % (0.0-12.0); Neutrophils # (auto) 7.4 10 ^3/uL (1.6-8.6); Neutrophils % (auto) 76.7 % (37.0-80.0); Nucleated Red Blood Cells % 0.1 %; Platelet Count (auto) 145 10^3/uL (140-450); Red Blood Cells 4.48 10^6/uL (4.5-5.90); Red Cell Distribution Width 13.9 % (11.8-14.3); White Blood Cell 9.7 10^3/uL (4.4-10.8)
[2020-03-13 04:50] LABS: GFR African American 27 mL/min; GFR Non-African American 22 mL/min
[2020-03-13 05:11] LABS: Anion Gap 11 (5-15); BUN/Creatinine Ratio 6.8; Blood Urea Nitrogen 21 mg/dL (7-18); Calcium 6.6 mg/dL (8.5-10.1); Carbon Dioxide 25 mmol/L (21-32); Chloride 102 mmol/L (98-107); Glucose 169 mg/dL (74-106); Sodium 138 mmol/L (136-145)
[2020-03-13 05:19] LABS: Potassium 6.4 mmol/L (3.5-5.1)
--- NOTE | 2020-03-13 05:20 | NUR ---
PAGED HOSPITALIST REGARDING ELEVATED K K 6.4
[2020-03-13] MEDS: HYDROCORTISONE SOD SUCC 100 MG/2ML INJ VIAL IV SCH ×2 (05:32→11:01)
--- NOTE | 2020-03-13 05:55 | NUR ---
HOSPITALIST RETURNED CALL WAITING FOR ORDERS
[2020-03-13] MEDS: fentaNYL Drip 2500mCg/250mlNS 250 ML IV SCH (05:58)
[2020-03-13] MEDS: PANTOPRAZOLE 40 MG/10 ML VIAL INJ IV SCH (06:42)
[2020-03-13] MEDS ORDERED: SODIUM ZIRCONIUM CYCL 10 GM PAK PO ONE (07:00)
[2020-03-13] MEDS ORDERED: SODIUM BICARBONATE 8.4 % INJ 50ML VIAL IV ONE (07:00)
[2020-03-13] MEDS ORDERED: DEXTROSE (50%) 50ML SYRG IV ONE (07:00)
[2020-03-13] MEDS ORDERED: CALCIUM GLUC 4.65meq/50ml D5AE 50 ML IV ONE (07:00)
[2020-03-13] MEDS ORDERED: InsuLIN REG 1unit/0.01ml Soln (100units/ml) IV ONE (07:00)
--- NOTE | 2020-03-13 07:29 | NUR ---
UNABLE TO GIVE LOKELMA DUE TO PATIENT NPO STATUS FROM SMALL BOWEL OBSTRUCTION
[2020-03-13] MEDS ORDERED: FUROSEMIDE 100 MG/10ML VIAL IV ONE (08:00)
--- NOTE | 2020-03-13 08:14 | NUR ---
Respiratory note: RR CHANGED TO [address] PATIÑO ORDER. RN CODEY MADE AWARE OF CHANGE. PT TOLERATING WELL.
[2020-03-13] MEDS ORDERED: HEPARIN 1,000 UNITS/ml 1ML VIAL ONE (08:59)
[2020-03-13] MEDS ORDERED: cefTRIAXone 1GM/50ML D5W 50 ML IV SCH (09:00)
--- NOTE | 2020-03-13 09:00 | NUR ---
SEDATION VACATION HELD DUE TO VENTILATOR DYSSYNCHRONY Addendum: 03/13/20 at 1123 by Rui Bermudez RN Amended: Links added.
[2020-03-13] MEDS ORDERED: SODIUM CHL 0.9% 1000 ML BAG XX ONE (09:15)
[2020-03-13] MEDS: ENOXAPARIN SOD 80 MG/0.8ML SYRINGE SC SCH ×2 (10:04→21:48)
[2020-03-13] MEDS: MEROPENEM 1GM IVPB 100 ML IV SCH ×2 (10:04→21:48)
--- NOTE | 2020-03-13 10:05 | NUR ---
DR. MANN AT BEDSIDE
--- NOTE | 2020-03-13 10:15 | NUR ---
Respiratory note: VENT CHANGES PER DR PATIÑO ORDER ARE FOLLOWS: AC RR 24, VT 500, +5. ABG IN AN HOUR. RN CODEY AWARE OF CHANGES.
--- NOTE | 2020-03-13 10:19 | NUR ---
DR. OAKES AT BEDSIDE
[2020-03-13 10:31] LABS: % Iron Saturation 20.4 % (20-55)
--- NOTE | 2020-03-13 10:38 | NUR ---
DR. SHORE AT BEDSIDE
[2020-03-13] MEDS: LINEZOLID 600MG/300ML 300 ML IV SCH ×2 (11:01→21:47)
[2020-03-13 11:13] LABS: Lactic Acid w/Reflex 2.8 mmol/L (0.4-2.0)
[2020-03-13] MEDS ORDERED: GASTROGRAFIN 120 ML SOL ONE (12:02)
--- NOTE | 2020-03-13 13:08 | NUR ---
DR. GONZALEZ AT BEDSIDE
[2020-03-13] MEDS: SODIUM CHLORIDE 0.9% 1,000 ML IV SCH ×2 (15:26→19:00)
--- NOTE | 2020-03-13 15:40 | NUR ---
DIALYSIS COMPLETE 1 LITER REMOVED, PATIENT TOLERATED WELL
--- NOTE | 2020-03-13 16:09 | NUR ---
PATIENT TAKEN TO CT
--- NOTE | 2020-03-13 16:27 | NUR ---
PATIENT BACK FROM CT
--- NOTE | 2020-03-13 16:30 | NUR ---
RT Transport Note: Patient transported to CT with ALONA HOOD. Patient transported to and from procedure on ventilator with previous ordered settings. Patient on rn cardiac rehab with alarms set and audible, ambu-bag/mask connected to 02 tank. Patient returned to room with no adverse reaction noted. Transport completed without incident.
--- NOTE | 2020-03-13 17:06 | NUR ---
PARTIAL LINEN CHANGE PERFORMED AT THIS TIME
--- NOTE | 2020-03-13 17:19 | NUR ---
DR. RAMIREZ AT BEDSIDE
--- NOTE | 2020-03-13 21:00 | NUR ---
FAMILY RECEIVED PHONE CALL FROM PATIENT'S DAUGHTER. PASSWORD CONFIRMED. UPDATED ON PT'S STATUS.
--- NOTE | 2020-03-13 22:00 | NUR ---
SEDATION VACATION PATIENT BECAME RESTLESS. DIDN'T FOLLOW COMMANDS. SEDATION RESTARTED.
[2020-03-14] VITALS (106 sets, daily range): BP systolic 77–131; BP diastolic 56–91
[2020-03-14] MEDS: MIDAZOLAM DRIP 50 mg/50mL 50 ML IV SCH ×3 (00:12→11:58)
[2020-03-14] MEDS: PHENYLEPHRINE IV 250 ML IV SCH ×3 (03:20→20:00)
[2020-03-14 04:10] LABS: Basophils # (auto) 0.1 10 ^3/uL (0-0.2); Basophils % (auto) 0.6 % (0.0-2.0); Eosinophils # (auto) 0 10 ^3/uL (0-0.8); Eosinophils % (auto) 0.3 % (0.0-7.0); Hematocrit 34.3 % (41.0-53.0); Hemoglobin 11.6 g/dL (13.5-17.5); Lymphocytes # (auto) 2.5 10 ^3/uL (0.4-5.4); Lymphocytes % (auto) 26.7 % (10.0-50.0); Mean Corpuscular Hemoglobin 30.9 pg (28.0-32.0); Mean Corpuscular Hgb Conc. 33.7 g/dL (32.0-36.0); Mean Corpuscular Volume 91.6 fL (80.0-100.0); Monocytes # (auto) 0.5 10 ^3/uL (0-1.3); Monocytes % (auto) 5.5 % (0.0-12.0); Neutrophils # (auto) 6.2 10 ^3/uL (1.6-8.6); Neutrophils % (auto) 66.9 % (37.0-80.0); Nucleated Red Blood Cells % 0.3 %; Platelet Count (auto) 148 10^3/uL (140-450); Red Blood Cells 3.75 10^6/uL (4.5-5.90); Red Cell Distribution Width 13.6 % (11.8-14.3); White Blood Cell 9.2 10^3/uL (4.4-10.8)
[2020-03-14] MEDS: SODIUM CHLORIDE 0.9% 1,000 ML IV SCH (04:11)
[2020-03-14 04:32] LABS: Calcium 6.5 mg/dL (8.5-10.1); Potassium 4.4 mmol/L (3.5-5.1)
[2020-03-14 04:49] LABS: BUN/Creatinine Ratio 6.2; Bilirubin, Total 0.3 mg/dL (0.2-1.0); Total Protein 5.4 g/dL (6.4-8.2)
[2020-03-14] MEDS: NOREPINEPHRINE 8 MG/250ML KIT 250 ML IV SCH (05:44)
[2020-03-14] MEDS: fentaNYL Drip 2500mCg/250mlNS 250 ML IV SCH (05:47)
--- NOTE | 2020-03-14 06:30 | NUR ---
SEDATION PATIENT GETS RESTLESS WITH ANY STIMULATION OTHERWISE PATIENT IS MODERATELY SEDATED.
[2020-03-14] MEDS: PANTOPRAZOLE 40 MG/10 ML VIAL INJ IV SCH (06:37)
--- NOTE | 2020-03-14 08:00 | NUR ---
AM ASSESSMENT COMPLETED REMAINS INTUBATED SEDATED, + COUGH AND GAG REFLEX, PT HAS MINIMAL ETT SECRETIONS WHEN SUCTIONED THROUGH ETT. LS CLEAR BILATERALLY. ORAL CARE PROVIDED. SKIN REMAINS INTACT. PT OH HD. FC WITH MINIMAL UOP. PT'S LAST HD WAS YESTERDAY, PT HAD ONE L TAKEN OUT. VIA LT. IJ PIERO. PT HAS GOOD BOWEL SOUNDS ON ALL QUADRANTS, NGT TO RT. NARE TO LCS DRAINING SMALL CLEAR GREEN BILE. MONITOR ALARMS VERIFIED.
[2020-03-14] MEDS: LINEZOLID 600MG/300ML 300 ML IV SCH ×2 (09:53→21:48)
[2020-03-14] MEDS: ENOXAPARIN SOD 80 MG/0.8ML SYRINGE SC SCH (09:53)
[2020-03-14] MEDS: MEROPENEM 1GM IVPB 100 ML IV SCH (09:53)
--- NOTE | 2020-03-14 11:27 | NUR ---
DR. GONZALEZ ROUNDED ON PT. HE ASSESSED PT, I UPDATED HIM ON PT'S CURRENT SEDATION GTT'S , NEURO RESPONSE. MD WANT'S PT'S SEDATION TO BE LIGHTEN AND FOR HIM TO BE CPAP TOMORROW IN AM. DISCUSSED POC WITH PT'S DAUGHTER, HE ALSO TOLD HER THAT HIS SON CANNOT VISIT AT THIS TIME SINCE PT IS SEDATED, HE WOULDN'T BE AWARE OF HIS VISIT TO WAIT FOR TOMORROW "WE'LL SEE".
[2020-03-14] MEDS ORDERED: cefTRIAXone 1GM/50ML D5W 50 ML IV ONE (11:30)
--- NOTE | 2020-03-14 11:51 | NUR ---
Nutrition Assessment Note Please see attached link for complete assessment Est Energy needs BW 96 [id number] kcals (23-25 kcal/kgBW), Est Protein needs: 96-105 gms/day (1.0-1.1 gm/kgBW). Will continue to monitor and reassess prn. Addendum: 03/14/20 at [address] Amended: Links added.
[2020-03-14] MEDS: SODIUM FERR GLUC 62.5MG/5ML 125 MG in SODIUM CHL 0.9% 100 ML IV SCH (12:48)
--- NOTE | 2020-03-14 20:30 | NUR ---
Patient bathe/linen change Patient given complete bath with chlorhexidine wipes. Skin integrity assessed for any changes. Linens changed. Patient repositioned for comfort.
[2020-03-15] VITALS (78 sets, daily range): BP systolic 106–204; BP diastolic 72–128
[2020-03-15] MEDS: SODIUM CHLORIDE 0.9% 1,000 ML IV SCH ×2 (00:40→11:50)
[2020-03-15] MEDS: PHENYLEPHRINE IV 250 ML IV SCH (04:20)
[2020-03-15 04:25] LABS: Basophils # (auto) 0.1 10 ^3/uL (0-0.2); Basophils % (auto) 0.9 % (0.0-2.0); Eosinophils # (auto) 0.1 10 ^3/uL (0-0.8); Eosinophils % (auto) 0.9 % (0.0-7.0); Hematocrit 35.1 % (41.0-53.0); Hemoglobin 11.5 g/dL (13.5-17.5); Lymphocytes # (auto) 2.3 10 ^3/uL (0.4-5.4); Lymphocytes % (auto) 31.4 % (10.0-50.0); Mean Corpuscular Hemoglobin 30.2 pg (28.0-32.0); Mean Corpuscular Hgb Conc. 32.9 g/dL (32.0-36.0); Mean Corpuscular Volume 91.8 fL (80.0-100.0); Monocytes # (auto) 0.4 10 ^3/uL (0-1.3); Monocytes % (auto) 5.1 % (0.0-12.0); Neutrophils # (auto) 4.5 10 ^3/uL (1.6-8.6); Neutrophils % (auto) 61.7 % (37.0-80.0); Nucleated Red Blood Cells % 0.5 %; Platelet Count (auto) 177 10^3/uL (140-450); Red Blood Cells 3.82 10^6/uL (4.5-5.90); Red Cell Distribution Width 13.9 % (11.8-14.3); White Blood Cell 7.3 10^3/uL (4.4-10.8)
[2020-03-15 04:45] LABS: Albumin 2.1 g/dL (3.4-5.0); Potassium 3.5 mmol/L (3.5-5.1)
[2020-03-15 05:02] LABS: BUN/Creatinine Ratio 6.9; Bilirubin, Total 0.4 mg/dL (0.2-1.0); Total Protein 5.6 g/dL (6.4-8.2)
[2020-03-15] MEDS: PANTOPRAZOLE 40 MG/10 ML VIAL INJ IV SCH (06:23)
[2020-03-15 08:00] LABS: Hepatitis B Surface Antigen Negative (Negative)
[2020-03-15] MEDS: cefTRIAXone 1GM/50ML D5W 50 ML IV SCH (08:49)
--- NOTE | 2020-03-15 09:21 | NUR ---
Patient's daughter, Edel called and was updated appropriately after verification of password. All questions and concerns addressed.
[2020-03-15] MEDS: LINEZOLID 600MG/300ML 300 ML IV SCH (09:23)
[2020-03-15] MEDS ORDERED: ENOXAPARIN SOD 100 MG/1 ML SYRINGE SC SCH (10:00)
--- NOTE | 2020-03-15 10:13 | NUR ---
Patient incontinent of liquid stool X3. Complete bath provided. Stool sample obtained and sent to lab.
--- NOTE | 2020-03-15 10:23 | NUR ---
Dr. Orantes at bedside.
--- NOTE | 2020-03-15 10:43 | NUR ---
WOUND CARE NOTE: Wound care in to see patient for skin integrity monitoring due to intubation status,putting patient to high risk for skin breakdown. Patient is 59 years old male with admitting diagnosis of Septic Shock. Patient is resting in ICU low air loss bed in Rm. 108. Patient is intubated and mechanically ventilated. Patient appears to be in no pain using Mojica Roman Faces Pain Scale. His Ozzie score is 14. Skin assessment done with the assistance of another nurse, ALONA Light. No wound noted other than intact 1x1cm dark brown callous/hyperkeratotic skin to patient's L lateral foot, area is clean and dry, left open to air. No pressure injury noted. Patient is receiving BID/PRN cleaning and application of Barrier cream to sacral, buttocks as preventative. Repositioned patient for comfort facing his Lt side, redistributed pressure points with pillows. Patient tolerated well. RECOMMENDATION: Nursing to continue with BID/PRN cleaning and application of Barrier cream to sacral buttocks as preventative, frequent turning and repositioning schedule as condition permits, redistribute pressure points with pillows, elevate heels on pillows, continue monitoring by wound care while patient is intubated. Addendum: 03/15/20 at 1600 by Abi León RN Amended: Links added.
--- NOTE | 2020-03-15 10:45 | NUR ---
Wound care nurse at bedside.
--- NOTE | 2020-03-15 11:14 | NUR ---
Dr. Carmichael and Dr. Ordonez at bedside.
[2020-03-15] MEDS: SODIUM FERR GLUC 62.5MG/5ML 125 MG in SODIUM CHL 0.9% 100 ML IV SCH (12:00)
[2020-03-15 12:11] LABS: Hepatitis B Surface Antigen Negative (Negative)
[2020-03-15 12:18] LABS: Hepatitis C Antibody Negative (Negative)
[2020-03-15 12:19] LABS: Hepatitis A Ab IgM Negative; Hepatitis B Core IgM Negative
[2020-03-15] MEDS ORDERED: fentaNYL Drip 2500mCg/250mlNS 250 ML IV SCH (12:45)
--- NOTE | 2020-03-15 12:48 | NUR ---
Dr. Viveros at bedside.
--- NOTE | 2020-03-15 13:00 | NUR ---
Patient incontinent of liquid brown stool. Complete bath provided. Linens and gown changed. Rectal tube inserted per MD's orders.
[2020-03-15] MEDS ORDERED: GOLYTELY 4L KIT NG ONE (13:15)
--- NOTE | 2020-03-15 14:06 | NUR ---
Patient self extubate. Dr. Viveros informed, RT at bedside and placed patient on 40% cool mist mask. Oxygen saturation is 99%. No s/s of distress noted at this time.
--- NOTE | 2020-03-15 14:10 | NUR ---
Dr. Viveros notified regarding patient's elevated BP, orders received.
--- NOTE | 2020-03-15 14:14 | NUR ---
Critical Lab Dr. Viveros notified regarding patient's +C-diff, orders received.
[2020-03-15] MEDS: LABETALOL HCL 5 MG/ML 4ML SYRINGE IV PRN ×2 (15:06→18:26)
[2020-03-15] MEDS ORDERED: MOVIPREP PO ONE (18:00)
[2020-03-15] MEDS: VANCOMYCIN HCL 125MG/5ML ORAL SOL PO SCH (18:06)
[2020-03-15] MEDS: metroNIDAZOLE 500MG/100ML 100 ML IV SCH (22:08)
[2020-03-16] VITALS (43 sets, daily range): BP systolic 116–178; BP diastolic 82–111
[2020-03-16] MEDS: SODIUM CHLORIDE 0.9% 1,000 ML IV SCH ×3 (01:15→13:35)
[2020-03-16] MEDS ORDERED: MOVIPREP PO ONE (06:00)
[2020-03-16] MEDS: VANCOMYCIN HCL 125MG/5ML ORAL SOL PO SCH ×5 (06:26→23:59)
[2020-03-16] MEDS: metroNIDAZOLE 500MG/100ML 100 ML IV SCH ×3 (06:26→21:13)
[2020-03-16] MEDS: PANTOPRAZOLE 40 MG/10 ML VIAL INJ IV SCH (06:28)
[2020-03-16 06:40] LABS: Albumin 2.1 g/dL (3.4-5.0); Calcium 7.1 mg/dL (8.5-10.1); Potassium 3.5 mmol/L (3.5-5.1)
[2020-03-16 06:45] LABS: BUN/Creatinine Ratio 9.3; Bilirubin, Total 0.4 mg/dL (0.2-1.0); Total Protein 5.8 g/dL (6.4-8.2)
[2020-03-16 06:49] LABS: Basophils # (auto) 0.1 10 ^3/uL (0-0.2); Basophils % (auto) 0.8 % (0.0-2.0); Eosinophils # (auto) 0 10 ^3/uL (0-0.8); Eosinophils % (auto) 0.4 % (0.0-7.0); Hematocrit 35.4 % (41.0-53.0); Hemoglobin 11.6 g/dL (13.5-17.5); Lymphocytes # (auto) 1.5 10 ^3/uL (0.4-5.4); Lymphocytes % (auto) 19.9 % (10.0-50.0); Mean Corpuscular Hemoglobin 30.3 pg (28.0-32.0); Mean Corpuscular Hgb Conc. 32.8 g/dL (32.0-36.0); Mean Corpuscular Volume 92.5 fL (80.0-100.0); Monocytes # (auto) 0.7 10 ^3/uL (0-1.3); Monocytes % (auto) 8.5 % (0.0-12.0); Neutrophils # (auto) 5.4 10 ^3/uL (1.6-8.6); Neutrophils % (auto) 70.4 % (37.0-80.0); Nucleated Red Blood Cells % 0.3 %; Platelet Count (auto) 154 10^3/uL (140-450); Red Blood Cells 3.83 10^6/uL (4.5-5.90); Red Cell Distribution Width 13.6 % (11.8-14.3); White Blood Cell 7.6 10^3/uL (4.4-10.8)
--- NOTE | 2020-03-16 08:00 | NUR ---
Opening Shift Note Assumed care of patient, awake and oriented x2, re-oriented to time and situation. No S/S of distress/SOB or pain. See interventions for complete assessment. Bed locked on low position, side rails up x2, bed alarms on at all times, call nielson within reach Instructed on POC and to call for assist PRN, will continue to monitor for changes Q1hr and PRN.
[2020-03-16] MEDS ORDERED: LIDOCAINE VISCOUS 2% 15ML UD ONE (08:26)
[2020-03-16] MEDS ORDERED: FLUMAZENIL 0.1 MG/ML INJ 10ML MDV IV ONE (08:26)
[2020-03-16] MEDS ORDERED: SODIUM CHLORIDE LOCK 10 ML ONE (08:26)
[2020-03-16] MEDS ORDERED: NALOXONE HCL 0.4 MG/ML VIAL ONE (08:26)
[2020-03-16] MEDS ORDERED: diphenhdrAMINE HCL 50 MG/1 ML VL ONE (08:27)
[2020-03-16] MEDS ORDERED: fentaNYL CITRATE 100 MCG/2 ML VL ONE (08:27)
[2020-03-16] MEDS: MIDAZOLAM DRIP 50 mg/50mL 50 ML IV SCH (08:30)
[2020-03-16] MEDS: MIDAZOLAM HCL 5 MG/ML-1ML VIAL ONE ×3 (09:17→09:27)
[2020-03-16] MEDS: fentaNYL CITRATE 100 MCG/2 ML VL ONE ×5 (09:17→10:11)
--- NOTE | 2020-03-16 10:00 | NUR ---
EGD and Colonoscopy that started at [address] Orantes completed with finding of Polyps, diverticulosis and hemorrhoids. VS WNL. Will continue to monitor.
[2020-03-16] MEDS: cefTRIAXone 1GM/50ML D5W 50 ML IV SCH (10:12)
--- NOTE | 2020-03-16 10:22 | NUR ---
Received call from patient's daughter Edel who's able to provide password. Updated on patient's status and POC, verbalized understanding. All questions and concerns addressed.
--- NOTE | 2020-03-16 10:33 | NUR ---
Dr Urban at bedside, updated on patient's status. Patient seen and examined. Will carry out new orders.
[2020-03-16] MEDS: SODIUM FERR GLUC 62.5MG/5ML 125 MG in SODIUM CHL 0.9% 100 ML IV SCH (12:46)
--- NOTE | 2020-03-16 13:11 | NUR ---
DR Viveros at bedside, updated on patient's status. Patient seen and examined. Will carry out new orders.
[2020-03-16] MEDS ORDERED: ENOXAPARIN SOD 100 MG/1 ML SYRINGE SC ONE (13:15)
--- NOTE | 2020-03-16 15:32 | NUR ---
Nutrition Followup Note Pt wt is 94.3 kg Pt was sleeping with no relatives at bedside when rounded this morning. Pt is off sedation on oxymizer. Per RN, waiting for pt to wake up and schedule a swallow eval. Est Energy needs BW 96 [id number] kcals (23-25 kcal/kgBW), Est Protein needs: 96-105 gms/day (1.0-1.1 gm/kgBW). Will continue to monitor and reassess prn. LABS: BUN 29 H, CREAT 3.11 H, GFR 22 L, CA 7.1 L, ALB 2.1 L, AST 523 H, ALT 859 H, ALK PHOS 157 H GI: Pt had 1 BM on 03/12 per RN doc BS: 13 mod risk. Refer to wound assessment report for further details PES: Impaired swallowing r.t current medical condition aeb pt`s intubated sedated with order of NPO Comments 1) advance diet as medically feasible 2) consider PN support to meet > 75% of needs if GI is not accessible 3) continue current plan of care
--- NOTE | 2020-03-16 16:00 | NUR ---
Patient confused, agitated and trying to get out of bed. Re-orientation done, re-positioned for comfort, bed locked on low position, side rails up x2, bed alarms on at all times. Paged Dr Viveros and called back. Updated on patient's status. Orders for Ativan PRN and Tele downgrade with sitter received. Orders read back and verified. Will carry out.
[2020-03-16] MEDS ORDERED: LORazepam 2MG/ML-1ML VIAL IV PRN (16:15)
[2020-03-16] MEDS: LABETALOL HCL 5 MG/ML 4ML SYRINGE IV PRN ×2 (16:28→21:27)
--- NOTE | 2020-03-16 16:50 | NUR ---
Patient calmed down and went to sleep after eating jello and drinking water. Bed locked on low position, side rails up x2, bed alarms on at all times, call nielson within reach.
--- NOTE | 2020-03-16 17:44 | NUR ---
Patient found down of the floor by this RN, carried back to bed with Giovanni PT, Stephy RN and Aurea RN. Patient connected back to unit monitoring and oxygen. VS WNL. No acute neurologic changes, patient awake and oriented x2, denies pain. Kirill Castillo RN and Irena ArellanoPathology Secretary/Transcriptionist informed. Paged Dr Sweeney. Awaiting call back.
--- NOTE | 2020-03-16 18:00 | NUR ---
Patient Vanco held at this time, patient s/p fall. Will continue to monitor.
--- NOTE | 2020-03-16 18:25 | NUR ---
Patient transferred to Tele via hospital bed on gambling monitor and portable 02. All patient medications and personal belongings transfered with patient to receiving floor. Patient care transferred to Adriana SAGE.
--- NOTE | 2020-03-16 18:38 | NUR ---
ICU TRANSFER RECEIVED PATIENT FROM ICU AFTER SBAR RECEIVED FROM ALONA GARCIA. PATIENT ON 6L OXYMIZER, MAGAÑA CATHETER IN PLACE. RIGHT IJ INTACT. PATIENT TOLERATED TRANSFER WELL. WILL ENDORSE CARE TO CASTING ASSOCIATE Addendum: 03/16/20 at 1840 by LIZBETH SUH RN RN TEL #[id number] NSR @ 17 BPM
--- NOTE | 2020-03-16 19:30 | NUR ---
Opening Shift Note Assumed care of patient, awake and alert. No S/S of distress/SOB or pain. Insructed on POC and to callfor assist PRN, will continue to monitor for changes Q1hr and PRN. fuel house attendant at bedside for patient safety. Bilateral mittens in place to prevent patient from pulling lines. Fall and safety precautions in place. Call light within reach. Addendum: 03/17/20 at 0125 by Khadijah Giles RN RN Received in report that patient was found down in ICU before transfer to unit. Unknown how patient landed. Day shift RN stated has been paged, but has not called back yet. Awaiting 's call back.
--- NOTE | 2020-03-16 20:08 | NUR ---
MD POWERS Received call from Dr. Powers regarding patient's fall in ICU before transfer to unit. Informed Dr. Powers patent was found down, but upon initial physical assessment, no bruising noted anywhere on body or head, no bumps noted anywhere on body or head. When patient was asked if he remembers falling or if he had pain anywhere, patient stated "no, I don't remember" and denies pain at this time. Patient arousable easily to name and moving all extremities independently. No new orders received from Dr. Powers. detention attendant at bedside. Will continue to monitor
[2020-03-17] MEDS: SODIUM CHLORIDE 0.9% 1,000 ML IV SCH ×2 (04:48→10:02)
[2020-03-17 04:55] VITALS: BP 138/95
[2020-03-17] MEDS: metroNIDAZOLE 500MG/100ML 100 ML IV SCH ×3 (05:25→21:41)
[2020-03-17] MEDS: PANTOPRAZOLE 40 MG/10 ML VIAL INJ IV SCH (05:26)
[2020-03-17] MEDS: VANCOMYCIN HCL 125MG/5ML ORAL SOL PO SCH ×3 (05:26→18:30)
[2020-03-17 05:39] LABS: BUN/Creatinine Ratio 12.6; Bilirubin, Total 0.4 mg/dL (0.2-1.0); Total Protein 5.5 g/dL (6.4-8.2)
[2020-03-17 05:42] LABS: Basophils # (auto) 0 10 ^3/uL (0-0.2); Basophils % (auto) 0.4 % (0.0-2.0); Eosinophils # (auto) 0.1 10 ^3/uL (0-0.8); Eosinophils % (auto) 1.5 % (0.0-7.0); Hematocrit 33.4 % (41.0-53.0); Hemoglobin 11.1 g/dL (13.5-17.5); Lymphocytes # (auto) 1.8 10 ^3/uL (0.4-5.4); Lymphocytes % (auto) 26.3 % (10.0-50.0); Mean Corpuscular Hemoglobin 30.2 pg (28.0-32.0); Mean Corpuscular Hgb Conc. 33.3 g/dL (32.0-36.0); Mean Corpuscular Volume 90.8 fL (80.0-100.0); Monocytes # (auto) 0.6 10 ^3/uL (0-1.3); Neutrophils # (auto) 4.2 10 ^3/uL (1.6-8.6); Neutrophils % (auto) 62.8 % (37.0-80.0); Nucleated Red Blood Cells % 0.5 %; Platelet Count (auto) 154 10^3/uL (140-450); Red Blood Cells 3.68 10^6/uL (4.5-5.90); Red Cell Distribution Width 13.4 % (11.8-14.3); White Blood Cell 6.7 10^3/uL (4.4-10.8)
[2020-03-17 06:20] LABS: Potassium 2.8 mmol/L (3.5-5.1)
--- NOTE | 2020-03-17 06:20 | NUR ---
CRITICAL Received call from lab, spoke with Fadumo. Critical lab value; K 2.8. Hospitalist insulation and flooring assembler paged.
[2020-03-17] MEDS ORDERED: POTASSIUM CHL 20 Meq TABLET PO ONE ×2 (06:30→11:00)
--- NOTE | 2020-03-17 06:30 | NUR ---
HOSPITALIST Received call back from hospitalist on-call, Warner Ayers NP. New orders received, read back and verified. Will input and carry out
--- NOTE | 2020-03-17 07:30 | NUR ---
Opening Shift Note Assumed care of patient, awake and alert. No S/S of distress/SOB or pain. Instructed on POC and to call for assist PRN, will continue to monitor for changes Q1hr and PRN. ALL QUESTIONS AND CONCERNS ANSWERED.
[2020-03-17 09:00] VITALS: BP 148/93
[2020-03-17] MEDS: cefTRIAXone 1GM/50ML D5W 50 ML IV SCH (10:04)
[2020-03-17] MEDS: FLORASTOR (S. BOULARDII) 250 MG CAP PO SCH (10:10)
[2020-03-17] MEDS: ENOXAPARIN SOD 100 MG/1 ML SYRINGE SC SCH (10:11)
--- NOTE | 2020-03-17 11:10 | NUR ---
MD ANTHONY AT BEDSIDE FOR EVALUATION.
--- NOTE | 2020-03-17 11:30 | NUR ---
AT BEDSIDE CLEARED BY HOUSE WILLIAM MOCK FOR 30 MIN. PROPERLY GOWNED UP AND WEARING FACE MASK.
[2020-03-17 13:00] VITALS: BP 150/98
[2020-03-17] MEDS: LABETALOL HCL 5 MG/ML 4ML SYRINGE IV PRN (16:58)
[2020-03-17 17:00] VITALS: BP 158/103
--- NOTE | 2020-03-17 17:12 | NUR ---
IV removal PT C/O PAIN WITH IV TO THE R WRIST, IV DC'd with sterile technique, catheter fully intact. Pressure dressing applied to site. WRAPPED IN COBAN. Patient tolerated procedure well.
--- NOTE | 2020-03-17 19:30 | NUR ---
Opening Shift Note Assumed care of patient, awake and alert x3. No S/S of distress/SOB or pain. Nj bag is in place and hung below bladder, draining light aries urine. Sitter is at bedside for safety. Instructed on POC and to call for assist PRN, will continue to monitor for changes Q1hr and PRN.
[2020-03-18] MEDS: VANCOMYCIN HCL 125MG/5ML ORAL SOL PO SCH ×5 (00:05→23:31)
[2020-03-18] MEDS: metroNIDAZOLE 500MG/100ML 100 ML IV SCH ×4 (03:40→21:41)
[2020-03-18] MEDS: SODIUM CHLORIDE 0.9% 1,000 ML IV SCH ×2 (03:41→18:20)
[2020-03-18 05:00] VITALS: BP 169/106
[2020-03-18] MEDS: LABETALOL HCL 5 MG/ML 4ML SYRINGE IV PRN ×5 (05:52→22:53)
[2020-03-18] MEDS: PANTOPRAZOLE 40 MG/10 ML VIAL INJ IV SCH (06:13)
--- NOTE | 2020-03-18 06:58 | NUR ---
Closing note Patient is resting in bed, no complaints of pain, SOB. BP is currently 164/101, no prn medication available for another hour. Patient states he takes Benazepril at home and that helps his blood pressure a lot. Sitter is at bedside for safety. Will endorse care to dayshinavi RN.
--- NOTE | 2020-03-18 07:40 | NUR ---
Opening Shift Note Assumed care of patient, awake and alert and oriented x 4. Patient is aware of location, date but not what brought him here. Asked other questions to orient and patient is A/O x 4. He complains of nausea, doctor asked for PRN medication. Respirations are even and minimally labored on 3 L oxymizer, O2 sat is currently at 98%. No S/S of distress/SOB or pain. Bed is in the lowest and locked position with side rails up x 2 and call light within reach, sitter also at bedside. Instructed on POC and to call for assist PRN, will continue to monitor for changes Q1hr and PRN.
[2020-03-18] MEDS: ENOXAPARIN SOD 100 MG/1 ML SYRINGE SC SCH (08:37)
[2020-03-18] MEDS: cefTRIAXone 1GM/50ML D5W 50 ML IV SCH (08:37)
[2020-03-18] MEDS: FLORASTOR (S. BOULARDII) 250 MG CAP PO SCH (08:37)
[2020-03-18 09:00] VITALS: BP 161/102
[2020-03-18] MEDS ORDERED: BENAZEPRIL HCL 10 MG TAB PO SCH (10:00)
[2020-03-18] MEDS: PROMETHAZINE HCL 25 MG/ML 1ML IV PRN (10:27)
--- NOTE | 2020-03-18 10:37 | NUR ---
Nutrition Followup Note Wt: 99.5 kg Pt was sleeping with no relatives at bedside when rounded this morning. pt s/p colonoscopy. pt is currently on clear liq diet with inadequate Po of < 50% x 2 per RN doc Est Energy needs BW 96 [id number] kcals (23-25 kcal/kgBW), Est Protein needs: 96-105 gms/day (1.0-1.1 gm/kgBW). Will continue to monitor and reassess prn. LABS: BUN 22 H CREAT 1.74 H CA 7.0 L, ALB 2.0 L, GLU 107 HAST/ALT 247/584 H GI: Pt had 1 BM today per RN doc BS: 14 mod risk. Refer to wound assessment report for further details PES: Partially resolved: Impaired swallowing r.t current medical condition aeb pt`s intubated sedated with order of NPO Altered nutrition related lab values r.t current chronic medical condition aeb elev RFT severe hypoalb hypocalcemia Comments 1) advance diet as medically feasible 2) consider PN support to meet > 75% of needs if GI is not accessible 3) continue current plan of care
[2020-03-18 12:24] LABS: BUN/Creatinine Ratio 11.7; Calcium 7.2 mg/dL (8.5-10.1); Potassium 3.1 mmol/L (3.5-5.1)
[2020-03-18 12:51] VITALS: BP 161/101
[2020-03-18] MEDS ORDERED: POTASSIUM CHL 20 Meq TABLET PO ONE (15:45)
[2020-03-18 17:00] VITALS: BP 182/112
--- NOTE | 2020-03-18 17:11 | NUR ---
Paged[employer]ogo on-call hospitalist Dr. Pamela reyez for PRN B/P med.
--- NOTE | 2020-03-18 18:30 | NUR ---
NEEDLE BOARD REPAIRER HOSPITALIST PAGED PATIENT B/P 182/111 HR 70, NEW PRN MEDICATION NEEDED. PATIENT ALSO UNABLE TO TAKE PO POTASSIUM ORDERED. PLEASE REQUEST IV OR EFFERVESCENT REPLACEMENT.
--- NOTE | 2020-03-18 19:30 | NUR ---
Opening Shift Note Assumed care of patient, awake and alert x3. No S/S of distress/SOB or pain. Nj bag is in place and hung below bladder, draining yellow urine. Instructed on POC and to call for assist PRN, will continue to monitor for changes Q1hr and PRN.
[2020-03-18 22:00] VITALS: BP 152/96
--- NOTE | 2020-03-19 00:01 | NUR ---
Paged hospitalist regarding elevated blood pressure.
[2020-03-19] MEDS: MORPHINE SULFATE 4 MG/ML SYR/VIAL IV PRN (00:20)
--- NOTE | 2020-03-19 00:29 | NUR ---
Kimberli Pérez BRAKE REPAIR SUPERVISOR called back, new order received for Hydralazine 10 mg IVP give one time. Current BP is 173/103 HR 72. See physician's order sheet in hard chart.
[2020-03-19] MEDS ORDERED: hydrALAZINE HCL 20 MG/ML VL ONE (00:51)
[2020-03-19] MEDS: LABETALOL HCL 5 MG/ML 4ML SYRINGE IV PRN ×4 (03:45→21:13)
[2020-03-19 05:32] VITALS: BP 169/100
[2020-03-19] MEDS: SODIUM CHLORIDE 0.9% 1,000 ML IV SCH (06:25)
[2020-03-19] MEDS: VANCOMYCIN HCL 125MG/5ML ORAL SOL PO SCH ×3 (06:25→18:00)
[2020-03-19] MEDS: PANTOPRAZOLE 40 MG/10 ML VIAL INJ IV SCH (06:25)
[2020-03-19] MEDS: metroNIDAZOLE 500MG/100ML 100 ML IV SCH (06:25)
[2020-03-19 07:17] LABS: Albumin 2.1 g/dL (3.4-5.0); Bilirubin, Direct 0.2 mg/dL (0-0.2); Bilirubin, Total 0.6 mg/dL (0.2-1.0); Total Protein 5.9 g/dL (6.4-8.2)
--- NOTE | 2020-03-19 07:20 | NUR ---
Opening Shift Note Assumed care of patient, awake and alert bed is locked and in lowest position bed rails up x2. Nj lower than the patient , patent and draining clear yellow urine. No S/S of distress/SOB or pain. Instructed on POC and to call for assistance PRN, will continue to monitor for changes Q1hr and PRN.
[2020-03-19 09:00] VITALS: BP 167/98
[2020-03-19] MEDS: cefTRIAXone 1GM/50ML D5W 50 ML IV SCH (09:18)
[2020-03-19] MEDS ORDERED: amLODIPine BESYLATE 5 MG TAB PO ONE (10:15)
[2020-03-19] MEDS ORDERED: BENAZEPRIL HCL 10 MG TAB PO ONE (10:15)
[2020-03-19] MEDS: FLORASTOR (S. BOULARDII) 250 MG CAP PO SCH (10:50)
[2020-03-19 12:44] VITALS: BP 144/110
[2020-03-19] MEDS: metroNIDAZOLE 500 MG TAB PO SCH ×2 (14:45→21:12)
--- NOTE | 2020-03-19 15:46 | NUR ---
assessment Patient is a 59 year old male who is alert and oriented. Per patient prior to admission he was living with his girlfriend Sabrina [phone] who is also his emergency contact. Per patient he has no need for DME. Per patient he did not see a PCP prior to admission. Patient informed me he feels safe returning home with his girlfriend on discharge. I informed patient I will continue to monitor and follow up as appropriate for any post discharge needs. Patient verbalized understanding and agreed to discharge plan home. Addendum: 03/19/20 at 1550 by Jamia GASTELUM Amended: Links added.
[2020-03-19 17:10] VITALS: BP 155/96
--- NOTE | 2020-03-19 17:34 | NUR ---
Borja catheter dc'd Order to discontinue borja catheter. Borja dc'd with clean technique following deflation of balloon. Patient tolerated well with no complaints of pain. Continue care.
[2020-03-19] MEDS: APIXABAN 5 MG TAB PO SCH (21:13)
[2020-03-19 21:56] VITALS: BP 151/94
[2020-03-20] MEDS: VANCOMYCIN HCL 125MG/5ML ORAL SOL PO SCH ×5 (00:12→23:57)
[2020-03-20] MEDS: ACETAMINOPHEN 325 MG TAB PO PRN ×2 (02:55→18:41)
[2020-03-20 04:51] VITALS: BP 145/77
[2020-03-20] MEDS: metroNIDAZOLE 500 MG TAB PO SCH ×3 (06:25→22:39)
[2020-03-20] MEDS: PANTOPRAZOLE 40 MG/10 ML VIAL INJ IV SCH (06:25)
[2020-03-20 08:59] LABS: Basophils # (auto) 0.1 10 ^3/uL (0-0.2); Eosinophils # (auto) 0.1 10 ^3/uL (0-0.8); Eosinophils % (auto) 2.1 % (0.0-7.0); Hematocrit 37.2 % (41.0-53.0); Hemoglobin 12.3 g/dL (13.5-17.5); Lymphocytes # (auto) 1.7 10 ^3/uL (0.4-5.4); Mean Corpuscular Hgb Conc. 33.1 g/dL (32.0-36.0); Mean Corpuscular Volume 90.4 fL (80.0-100.0); Monocytes # (auto) 0.7 10 ^3/uL (0-1.3); Monocytes % (auto) 11.9 % (0.0-12.0); Neutrophils # (auto) 3.5 10 ^3/uL (1.6-8.6); Nucleated Red Blood Cells % 0.1 %; Platelet Count (auto) 196 10^3/uL (140-450); Red Blood Cells 4.11 10^6/uL (4.5-5.90); Red Cell Distribution Width 13.2 % (11.8-14.3); White Blood Cell 6.2 10^3/uL (4.4-10.8)
[2020-03-20 09:12] LABS: BUN/Creatinine Ratio 6.8; Calcium 7.3 mg/dL (8.5-10.1)
[2020-03-20 09:15] LABS: Potassium 2.4 mmol/L (3.5-5.1)
[2020-03-20 09:38] VITALS: BP 168/89
[2020-03-20] MEDS ORDERED: POTASSIUM CHL 20 Meq TABLET PO ONE ×2 (10:15→12:15)
[2020-03-20] MEDS ORDERED: levoFLOXacin 500 MG TAB PO SCH (10:22)
[2020-03-20] MEDS: APIXABAN 5 MG TAB PO SCH ×2 (10:40→22:39)
[2020-03-20] MEDS: BENAZEPRIL HCL 10 MG TAB PO SCH (10:41)
[2020-03-20] MEDS: amLODIPine BESYLATE 5 MG TAB PO SCH (10:42)
[2020-03-20] MEDS: FLORASTOR (S. BOULARDII) 250 MG CAP PO SCH (10:43)
--- NOTE | 2020-03-20 11:54 | NUR ---
Nutrition Followup Note Wt: 100.0 kg Pt was asleep with no family at bedside at time of rounds. Pt is s/p colonoscopy with diet advanced to 2g Na on 03/19 per MD order. Pt is tolerating solid foods per MD note and aeb pt with 63% po intake of 2 meals 03/19 per RN nutrition note. Will continue to monitor intake and tolerance. Est Energy needs BW 96 [id number] kcals (23-25 kcal/kgBW), Est Protein needs: 96-105 gms/day (1.0-1.1 gm/kgBW). Will continue to monitor and reassess prn. LABS: K 2.4L, BUN 6L, Ca 7.3L, Alb 2.1L GI: Pt had 1 BM today per RN doc BS: 20 low risk. Refer to wound assessment report for further details PES: Resolved: Impaired swallowing r.t current medical condition aeb pt`s intubated sedated with order of NPO partially resolved: Altered nutrition related lab values r.t current chronic medical condition aeb elev RFT severe hypoalb hypocalcemia Comments 1) pt po intake >75% 2) continue current plan of care 3) f/u 3-5 days
[2020-03-20 12:39] VITALS: BP 154/91
[2020-03-20 16:51] VITALS: BP 160/104
[2020-03-20] MEDS: LABETALOL HCL 5 MG/ML 4ML SYRINGE IV PRN (18:42)
[2020-03-20] MEDS ORDERED: PANTOPRAZOLE 40 MG/10 ML VIAL INJ IV ONE (19:45)
--- NOTE | 2020-03-20 20:00 | NUR ---
NOTIFIED HOSPITALIST RAJ OF PATIENT COMPLAINING OF STOMACH PAIN DUE TO GAS. HOSPITALIST PROVIDED NEW ORDER OF CARAFATE LIQUID PO 1 GM 1 TIME DOSE NOW. READ BACK AND CONFIRMED AND WILL CARRY OUT.
[2020-03-20] MEDS ORDERED: SUCRALFATE 1 GM/10 ML ORAL SUSP PO ONE (20:15)
[2020-03-20] MEDS: MORPHINE SULFATE 4 MG/ML SYR/VIAL IV PRN (20:20)
[2020-03-20 22:00] VITALS: BP 149/99
--- NOTE | 2020-03-21 02:32 | NUR ---
NOTIFIED HOSPITALIST OF PATIENT COMPLAINING OF STOMACH PAIN DUE TO GAS. HOSPITALIST PROVIDED NEW ORDER OF CARAFATE LIQUID PO 1 GM 1 TIME DOSE NOW. READ BACK AND CONFIRMED AND WILL CARRY OUT. Addendum: 03/21/20 at 0234 by Luis Chávez RN WRONG TIME.
[2020-03-21 05:00] VITALS: BP 144/96
[2020-03-21] MEDS: MORPHINE SULFATE 4 MG/ML SYR/VIAL IV PRN ×3 (05:39→21:27)
[2020-03-21] MEDS: VANCOMYCIN HCL 125MG/5ML ORAL SOL PO SCH ×3 (05:39→17:35)
[2020-03-21] MEDS: metroNIDAZOLE 500 MG TAB PO SCH ×3 (05:40→21:26)
--- NOTE | 2020-03-21 06:36 | NUR ---
PROVIDED FULL BED LINEN CHANGE AND PATIENT WAS ABLE TO DO A FULL HEAD TO TOE BED BATH ON HIS OWN. PATIENT TOLERATED WELL. Addendum: 03/21/20 at 0637 by Luis Chávez RN ALSO ORGANIZED AND CLEANED ROOM.
--- NOTE | 2020-03-21 07:20 | NUR ---
PROVIDED REPORT TO DAY RN AND PATIENT IS RESTING IN BED WITH NO SIGNS OF DISTRESS. ENDORSED TO DAY RN, OF PATIENT REQUESTING NO PO POTASSIUM, IF NEEDED POTASSIUM, IS REQUESTING LIQUID OR IV POTASSIUM/ CLARIFICATION ON PROTONIX-TYLENOL.
[2020-03-21 07:40] LABS: BUN/Creatinine Ratio 6.9; Calcium 7.2 mg/dL (8.5-10.1); Magnesium 1.1 mg/dL (1.6-2.6)
[2020-03-21 07:47] LABS: Potassium 2.7 mmol/L (3.5-5.1)
[2020-03-21 09:00] VITALS: BP 156/88
[2020-03-21] MEDS ORDERED: POTASSIUM EFFERVESENT TAB 25 MEQ PO ONE (10:00)
[2020-03-21] MEDS ORDERED: FAMOTIDINE 20 MG TAB PO ONE (10:45)
[2020-03-21] MEDS: amLODIPine BESYLATE 5 MG TAB PO SCH (11:07)
[2020-03-21] MEDS: BENAZEPRIL HCL 10 MG TAB PO SCH (11:08)
[2020-03-21] MEDS: FLORASTOR (S. BOULARDII) 250 MG CAP PO SCH (11:09)
[2020-03-21] MEDS: APIXABAN 5 MG TAB PO SCH ×2 (11:09→21:25)
[2020-03-21] MEDS: MAGNESIUM SULFATE 1GM/100ML 100 ML IV SCH ×2 (11:10→12:44)
[2020-03-21] MEDS: Ensure HIGH Protein Chocolate 8oz Bottle PO SCH ×2 (12:45→17:35)
[2020-03-21 13:00] VITALS: BP 148/100
[2020-03-21] MEDS: POTASSIUM CHL 20MEQ/100ML 100 ML IV SCH ×2 (14:32→16:24)
[2020-03-21 16:26] VITALS: BP 140/95
[2020-03-21] MEDS ORDERED: POTASSIUM CHL 20MEQ/100ML 100 ML IV SCH (16:30)
--- NOTE | 2020-03-21 17:15 | NUR ---
WOUND CARE NOTE: Wound care in to see patient for skin integrity monitoring. Patient has been extubated and now in MS/telemetry unit in Rm. 209. Patient is awake, alert and oriented. He's ambulatory and current Ozzie score is 23. Ozzie score is 14.Patient remain woudn free, no skin issue. No further wound care monitoring needed at this time. RECOMMENDATION: Reconsult for active wound, pressure injury, low Ozzie score of 12 and below.
[2020-03-21] MEDS: FAMOTIDINE 20 MG TAB PO SCH (21:26)
[2020-03-21] MEDS: PROMETHAZINE HCL 25 MG/ML 1ML IV PRN (21:27)
[2020-03-21 22:00] VITALS: BP 146/106
[2020-03-21] MEDS ORDERED: PANTOPRAZOLE 40 MG/10 ML VIAL INJ IV SCH (22:00)
[2020-03-22] MEDS: VANCOMYCIN HCL 125MG/5ML ORAL SOL PO SCH ×4 (00:39→17:43)
[2020-03-22 05:00] VITALS: BP 148/92
[2020-03-22] MEDS: metroNIDAZOLE 500 MG TAB PO SCH ×3 (05:57→22:00)
[2020-03-22] MEDS: MORPHINE SULFATE 4 MG/ML SYR/VIAL IV PRN ×4 (05:58→22:00)
[2020-03-22 09:00] VITALS: BP 142/89
[2020-03-22 09:26] LABS: Basophils # (auto) 0.1 10 ^3/uL (0-0.2); Basophils % (auto) 1.1 % (0.0-2.0); Eosinophils # (auto) 0.2 10 ^3/uL (0-0.8); Eosinophils % (auto) 3.4 % (0.0-7.0); Hematocrit 40.4 % (41.0-53.0); Hemoglobin 13.1 g/dL (13.5-17.5); Lymphocytes # (auto) 1.9 10 ^3/uL (0.4-5.4); Lymphocytes % (auto) 27.4 % (10.0-50.0); Mean Corpuscular Hemoglobin 29.4 pg (28.0-32.0); Mean Corpuscular Hgb Conc. 32.4 g/dL (32.0-36.0); Mean Corpuscular Volume 90.8 fL (80.0-100.0); Monocytes # (auto) 0.8 10 ^3/uL (0-1.3); Monocytes % (auto) 11.9 % (0.0-12.0); Neutrophils # (auto) 3.9 10 ^3/uL (1.6-8.6); Neutrophils % (auto) 56.2 % (37.0-80.0); Nucleated Red Blood Cells % 0.1 %; Platelet Count (auto) 234 10^3/uL (140-450); Red Blood Cells 4.45 10^6/uL (4.5-5.90)
[2020-03-22 09:34] LABS: BUN/Creatinine Ratio 11.2; Calcium 8.1 mg/dL (8.5-10.1); Magnesium 1.7 mg/dL (1.6-2.6); Potassium 3.5 mmol/L (3.5-5.1)
[2020-03-22] MEDS: FAMOTIDINE 20 MG TAB PO SCH ×2 (11:21→22:00)
[2020-03-22] MEDS: BENAZEPRIL HCL 10 MG TAB PO SCH (11:21)
[2020-03-22] MEDS: APIXABAN 5 MG TAB PO SCH ×2 (11:21→21:59)
[2020-03-22] MEDS: FLORASTOR (S. BOULARDII) 250 MG CAP PO SCH (11:21)
[2020-03-22] MEDS: Ensure HIGH Protein Chocolate 8oz Bottle PO SCH ×3 (11:22→17:43)
[2020-03-22] MEDS: amLODIPine BESYLATE 5 MG TAB PO SCH (11:22)
[2020-03-22] MEDS: PROMETHAZINE HCL 25 MG/ML 1ML IV PRN ×2 (11:23→17:53)
[2020-03-22] MEDS: LABETALOL HCL 5 MG/ML 4ML SYRINGE IV PRN (16:42)
[2020-03-22 17:08] VITALS: BP 157/104
--- NOTE | 2020-03-22 19:43 | NUR ---
Opening Shift Note Received report and assumed care of patient. Patient is awake and alert. No sign or symptoms of distress noted. Instructed patient on plan of care and to call for assistance as needed. Will continue to monitor.
[2020-03-22] MEDS: ONDANSETRON HCL 4 MG/2 ML VIAL IV PRN (20:41)
[2020-03-22 22:00] VITALS: BP 149/101
--- NOTE | 2020-03-22 22:00 | NUR ---
Pain Medication Administration Patient complaining of abdominal pain 10/10. Will administer pain medication per MD order. Will reassess pain level and will continue to monitor.
--- NOTE | 2020-03-22 22:30 | NUR ---
Pain Level Reassessment Patient asleep for pain level reassessment. No signs or symptoms of distress noted. Will continue to monitor.
[2020-03-23] MEDS: VANCOMYCIN HCL 125MG/5ML ORAL SOL PO SCH ×5 (00:07→23:54)
[2020-03-23] MEDS: ONDANSETRON HCL 4 MG/2 ML VIAL IV PRN ×4 (01:34→21:53)
[2020-03-23] MEDS: MORPHINE SULFATE 4 MG/ML SYR/VIAL IV PRN ×4 (02:51→22:36)
--- NOTE | 2020-03-23 02:51 | NUR ---
Pain Medication Administration Patient complaining of abdominal pain 10/10. Will administer pain medication per MD order. Will reassess pain level and will continue to monitor.
--- NOTE | 2020-03-23 03:21 | NUR ---
Pain Level Reassessment Patient asleep for pain level reassessment. No signs or symptoms of distress noted. Will continue to monitor.
[2020-03-23 05:00] VITALS: BP 128/101
[2020-03-23] MEDS: metroNIDAZOLE 500 MG TAB PO SCH (05:52)
--- NOTE | 2020-03-23 06:54 | NUR ---
Pain Medication Administration Patient complaining of abdominal pain 10/10. Will administer pain medication per MD order. Will endorse pain level reassessment to AM nurse.
[2020-03-23] MEDS: Ensure HIGH Protein Chocolate 8oz Bottle PO SCH (08:17)
[2020-03-23 09:00] VITALS: BP 150/98
[2020-03-23] MEDS: FAMOTIDINE 20 MG TAB PO SCH (09:45)
[2020-03-23] MEDS: APIXABAN 5 MG TAB PO SCH (09:46)
[2020-03-23] MEDS: BENAZEPRIL HCL 10 MG TAB PO SCH (09:46)
[2020-03-23] MEDS: amLODIPine BESYLATE 5 MG TAB PO SCH (09:46)
[2020-03-23] MEDS: FLORASTOR (S. BOULARDII) 250 MG CAP PO SCH (09:46)
[2020-03-23] MEDS ORDERED: PANTOPRAZOLE 40 MG/10 ML VIAL INJ IV ONE (10:30)
[2020-03-23] MEDS ORDERED: PPN PER PHARMACY 0 ML IV SCH (10:30)
[2020-03-23] MEDS ORDERED: IOHEXOL 350 MG/ML 100ML IJ ONE (10:52)
--- NOTE | 2020-03-23 11:57 | NUR ---
Pt has c/o /10 pain level to abdomen area. Pt was able to ambulate 150ft x2 laps with PT CGA. Pt demo'd good cherelle. did note pt to have mild SOB during ambulation secondary to increase pain. Addendum: 03/23/20 at 1159 by Betzy Shay PT Amended: Links added.
--- NOTE | 2020-03-23 11:59 | NUR ---
Received a call from Dr. Orantes to insert NG, Explained to patient regarding he needs NG due to SBO, patient stated he will do, if put him to sleep. Explained to patient that no need to put him to sleep, patient still refused NG insertion unless to put him to sleep. Will notify
[2020-03-23] MEDS ORDERED: levoFLOXacin 500MG 100 ML IV ONE (12:00)
--- NOTE | 2020-03-23 12:03 | NUR ---
Dr. Orantes aware of patient refused NG insertion unless to put him to sleep.
--- NOTE | 2020-03-23 12:10 | NUR ---
Dr. Orantes at bedside up date a plan of care to patient and also explained risks and benefits of NG insertion. Patient refused and stated " He wants to take a risk.
--- NOTE | 2020-03-23 12:25 | NUR ---
Dr. Saeed paged regarding a consultation. Awaiting to call back.
--- NOTE | 2020-03-23 12:27 | NUR ---
Received a call from Dr. Gomes for a small bowel series.
--- NOTE | 2020-03-23 12:40 | NUR ---
Received a call from radiology regarding unable to do a small bowel series due to patient refused NG and been vomiting. Dr. Saeed pagediogo.
[2020-03-23 13:00] VITALS: BP 130/98
--- NOTE | 2020-03-23 13:20 | NUR ---
Nutrition Followup Note Wt: 78.3 kg Pt was sleeping, is s/p extubation, diet advanced to 2g Sodium diet. Pt appetite is sporadic with 0% intake on 03/22, but with a 75% x3 PO intake on 03/21. Will continue to closely monitor pt PO intake and tolerance. Noted pt was with diarrhea on 03/22 per RN note. Est Energy needs BW 96 [id number] kcals (23-25 kcal/kgBW), Est Protein needs: 96-105 gms/day (1.0-1.1 gm/kgBW). Will continue to monitor and reassess prn. LABS: Ca 8.1L, Alb 2.1L GI: Pt had 2 BM on 03/22, diarrhea, per RN doc BS: 21 low risk. Refer to wound assessment report for further details PES: Resolved: Impaired swallowing r.t current medical condition aeb pt`s intubated sedated with order of NPO partially resolved: Altered nutrition related lab values r.t current chronic medical condition aeb elev RFT severe hypoalb hypocalcemia Comments 1) pt po intake >75% 2) continue current plan of care 3) f/u 3-5 days
[2020-03-23 13:53] LABS: Albumin 2.8 g/dL (3.4-5.0); Calcium 8.6 mg/dL (8.5-10.1); Magnesium 1.7 mg/dL (1.6-2.6); Potassium 3.7 mmol/L (3.5-5.1)
[2020-03-23 13:58] LABS: Bilirubin, Total 0.6 mg/dL (0.2-1.0); Phosphorus 4.9 mg/dL (2.5-4.90); Pre Albumin 17.7 mg/dL (20.0-40.0)
--- NOTE | 2020-03-23 14:30 | NUR ---
Dr. Saeed at bedside discussed with patient, patient agreed to have NG insertion.
--- NOTE | 2020-03-23 14:50 | NUR ---
Nasogastric tube insertion Patient educated on need for NG tube. All questions addressed. NGT inserted per MD order. Placement verified by aspiration of stomach contents, auscultation and chest xray.
--- NOTE | 2020-03-23 14:52 | NUR ---
Spoke to information technology audit manager regarding patient has NG, per tech unable to do a small series today. Will notify Dr. Saeed.
[2020-03-23] MEDS: metroNIDAZOLE 500MG/100ML 100 ML IV SCH ×2 (15:18→21:53)
[2020-03-23] MEDS ORDERED: TPN PER PHARMACY 0 ML IV SCH (15:30)
[2020-03-23 16:23] LABS: INR 1.16 (0.9-1.15); Partial Thromboplastin Time 28.7 sec (23.0-31.2)
--- NOTE | 2020-03-23 16:30 | NUR ---
HEPARIN DRIP STARTED AT THIS TIME AT RATE 14 ML PER HOUR, APTT 28.7. WILL RECHECK LAB IN 6 HOURS.
[2020-03-23] MEDS: HEPARIN DRIP/D5W 100UNITS/ML 250 ML IV SCH (16:34)
--- NOTE | 2020-03-23 16:48 | NUR ---
Output from NG about 800 ml of clear green fluids.
[2020-03-23 16:56] VITALS: BP 135/90
--- NOTE | 2020-03-23 18:38 | NUR ---
Dr. Saeed paged regarding patient has blood in the stool. Awaiting to call back .
--- NOTE | 2020-03-23 18:44 | NUR ---
HOSPITALIST paged regarding patient has blood in the stool. Awaiting to call back .
--- NOTE | 2020-03-23 18:51 | NUR ---
Received a call from Dr. Loja with new orders as follow : to continue Heparin drip for now, bolus 500 ml of NSS, recheck CBC and if HB drop more than 2.0 with Hypotensive and tachycardia, hold heparin and call GI consult stat.
[2020-03-23] MEDS ORDERED: SODIUM CHLORIDE 0.9% 500 ML IV ONE (19:00)
--- NOTE | 2020-03-23 19:13 | NUR ---
Total Output from NG about 1200 ml of clear green fluids.
[2020-03-23] MEDS ORDERED: AMINO ACID INFUSION IN D5W 2,000 ML IV NR (20:00)
--- NOTE | 2020-03-23 20:05 | NUR ---
Paged Hospitalist Paged Hospitalist regarding IV fluids, Clinimix, CBC lab draws and patient's po vancomycin. Per MD, continue IV fluids, Clinimix and CBC lab draws. Per MD, administer midnight PO Vancomycin and hold 0600 dose due to patient's NPO status. Orders read back and verified. Will carry out and will continue to monitor.
[2020-03-23] MEDS: D5W/SOD CHL 0.45%/KCL 20MEQ 1,000 ML IV SCH (20:30)
[2020-03-23 21:36] LABS: Basophils # (auto) 0.1 10 ^3/uL (0-0.2); Basophils % (auto) 0.7 % (0.0-2.0); Eosinophils # (auto) 0.2 10 ^3/uL (0-0.8); Eosinophils % (auto) 1.6 % (0.0-7.0); Hematocrit 43.6 % (41.0-53.0); Hemoglobin 13.9 g/dL (13.5-17.5); Lymphocytes # (auto) 2.8 10 ^3/uL (0.4-5.4); Mean Corpuscular Hemoglobin 29.2 pg (28.0-32.0); Mean Corpuscular Hgb Conc. 31.8 g/dL (32.0-36.0); Mean Corpuscular Volume 91.7 fL (80.0-100.0); Monocytes # (auto) 0.6 10 ^3/uL (0-1.3); Monocytes % (auto) 6.7 % (0.0-12.0); Neutrophils # (auto) 5.8 10 ^3/uL (1.6-8.6); Nucleated Red Blood Cells % 0.1 %; Platelet Count (auto) 282 10^3/uL (140-450); Red Blood Cells 4.76 10^6/uL (4.5-5.90); Red Cell Distribution Width 14.2 % (11.8-14.3); White Blood Cell 9.5 10^3/uL (4.4-10.8)
[2020-03-23 21:50] LABS: Calcium 9.2 mg/dL (8.5-10.1); Magnesium 1.8 mg/dL (1.6-2.6); Potassium 3.6 mmol/L (3.5-5.1)
[2020-03-23 21:54] LABS: BUN/Creatinine Ratio 12.4; Bilirubin, Total 0.6 mg/dL (0.2-1.0); Total Protein 7.8 g/dL (6.4-8.2)
[2020-03-23] MEDS: PANTOPRAZOLE 40 MG/10 ML VIAL INJ IV SCH (21:54)
[2020-03-23] MEDS ORDERED: ENOXAPARIN SOD 80 MG/0.8ML SYRINGE SC SCH (22:00)
[2020-03-23 22:27] VITALS: BP 135/97
--- NOTE | 2020-03-23 22:36 | NUR ---
Pain Medication Administration Patient complaining of abdominal pain 10/10. Will administer pain medication per MD order. Will reassess pain level and will continue to monitor.
--- NOTE | 2020-03-23 23:00 | NUR ---
Heparin Drip Patient's PTT is 56.4. Per eMAR and pharmacy no change. Heparin drip continued at 14ml/hr or 1400units/hr. Next lab draw in 6 hours. Will continue to monitor.
--- NOTE | 2020-03-23 23:06 | NUR ---
Pain Level Reassessment Patient asleep for pain level reassessment. No signs or symptoms of distress noted. Will continue to monitor.
[2020-03-23 23:18] LABS: Basophils # (auto) 0.1 10 ^3/uL (0-0.2); Basophils % (auto) 0.6 % (0.0-2.0); Eosinophils # (auto) 0.1 10 ^3/uL (0-0.8); Eosinophils % (auto) 1.3 % (0.0-7.0); Hematocrit 40.8 % (41.0-53.0); Hemoglobin 13.4 g/dL (13.5-17.5); Lymphocytes % (auto) 24.2 % (10.0-50.0); Mean Corpuscular Hgb Conc. 32.9 g/dL (32.0-36.0); Mean Corpuscular Volume 91.3 fL (80.0-100.0); Monocytes # (auto) 0.6 10 ^3/uL (0-1.3); Neutrophils # (auto) 5.6 10 ^3/uL (1.6-8.6); Neutrophils % (auto) 66.9 % (37.0-80.0); Platelet Count (auto) 268 10^3/uL (140-450); Red Blood Cells 4.47 10^6/uL (4.5-5.90); Red Cell Distribution Width 13.9 % (11.8-14.3); White Blood Cell 8.4 10^3/uL (4.4-10.8)
[2020-03-23 23:35] LABS: INR 1.21 (0.9-1.15); Partial Thromboplastin Time 56.4 sec (23.0-31.2)
[2020-03-23] MEDS: ACCU-CHEK COMFORT CURVE STRIP VI SCH (23:55)
[2020-03-23] MEDS: InsuLIN REG 1unit/0.01ml Soln (100units/ml) SC SCH (23:55)
[2020-03-24] MEDS ORDERED: DEXTROSE (50%) 50ML SYRG IV SCH
[2020-03-24] MEDS: MORPHINE SULFATE 4 MG/ML SYR/VIAL IV PRN ×4 (03:25→22:44)
--- NOTE | 2020-03-24 03:25 | NUR ---
Pain Medication Administration Patient complaining of abdominal pain 10/10. Will administer pain medication per MD order. Will reassess pain level and will continue to monitor.
--- NOTE | 2020-03-24 03:55 | NUR ---
Pain Level Reassessment Patient's pain level reassessed to be 9/10. Offered patient nonpharmacological interventions. Per patient, NG tube is uncomfortable. Patient educated on importance of NG tube. Will continue to monitor.
[2020-03-24 04:57] LABS: Basophils # (auto) 0 10 ^3/uL (0-0.2); Basophils % (auto) 0.5 % (0.0-2.0); Eosinophils # (auto) 0.1 10 ^3/uL (0-0.8); Eosinophils % (auto) 1.7 % (0.0-7.0); Hematocrit 37.9 % (41.0-53.0); Hemoglobin 12.2 g/dL (13.5-17.5); Lymphocytes # (auto) 2.5 10 ^3/uL (0.4-5.4); Lymphocytes % (auto) 33.8 % (10.0-50.0); Mean Corpuscular Hemoglobin 29.4 pg (28.0-32.0); Mean Corpuscular Hgb Conc. 32.3 g/dL (32.0-36.0); Mean Corpuscular Volume 91.2 fL (80.0-100.0); Monocytes # (auto) 0.6 10 ^3/uL (0-1.3); Monocytes % (auto) 8.4 % (0.0-12.0); Neutrophils # (auto) 4.1 10 ^3/uL (1.6-8.6); Neutrophils % (auto) 55.6 % (37.0-80.0); Platelet Count (auto) 270 10^3/uL (140-450); Red Blood Cells 4.15 10^6/uL (4.5-5.90); Red Cell Distribution Width 14.1 % (11.8-14.3); White Blood Cell 7.3 10^3/uL (4.4-10.8)
[2020-03-24 05:21] VITALS: BP 130/87
[2020-03-24] MEDS: ACCU-CHEK COMFORT CURVE STRIP VI SCH ×3 (05:39→17:54)
[2020-03-24] MEDS: metroNIDAZOLE 500MG/100ML 100 ML IV SCH ×3 (05:39→22:00)
[2020-03-24] MEDS: InsuLIN REG 1unit/0.01ml Soln (100units/ml) SC SCH ×3 (05:39→17:54)
[2020-03-24] MEDS: VANCOMYCIN HCL 125MG/5ML ORAL SOL PO SCH (05:40)
[2020-03-24] MEDS: ONDANSETRON HCL 4 MG/2 ML VIAL IV PRN ×4 (05:48→22:44)
--- NOTE | 2020-03-24 06:00 | NUR ---
Heparin Drip Patient's PTT is 57.6. Per eMAR and verification with pharmacy, no change. Heparin drip continued at 14ml/hr or 1400units/hr. Next lab draw in 6 hours. Will continue to monitor.
[2020-03-24 06:32] LABS: Basophils # (auto) 0 10 ^3/uL (0-0.2); Basophils % (auto) 0.5 % (0.0-2.0); Eosinophils # (auto) 0.2 10 ^3/uL (0-0.8); Eosinophils % (auto) 2.8 % (0.0-7.0); Hematocrit 35.8 % (41.0-53.0); Lymphocytes # (auto) 2.5 10 ^3/uL (0.4-5.4); Lymphocytes % (auto) 35.4 % (10.0-50.0); Mean Corpuscular Hemoglobin 30.4 pg (28.0-32.0); Mean Corpuscular Hgb Conc. 33.6 g/dL (32.0-36.0); Mean Corpuscular Volume 90.6 fL (80.0-100.0); Monocytes # (auto) 0.6 10 ^3/uL (0-1.3); Monocytes % (auto) 8.8 % (0.0-12.0); Neutrophils # (auto) 3.8 10 ^3/uL (1.6-8.6); Neutrophils % (auto) 52.5 % (37.0-80.0); Nucleated Red Blood Cells % 0.1 %; Platelet Count (auto) 252 10^3/uL (140-450); Red Blood Cells 3.95 10^6/uL (4.5-5.90); Red Cell Distribution Width 14.2 % (11.8-14.3); White Blood Cell 7.1 10^3/uL (4.4-10.8)
[2020-03-24 06:47] LABS: INR 1.18 (0.9-1.15); Partial Thromboplastin Time 57.6 sec (23.0-31.2)
[2020-03-24 06:48] LABS: Albumin 2.4 g/dL (3.4-5.0); Calcium 8.3 mg/dL (8.5-10.1); Magnesium 1.8 mg/dL (1.6-2.6); Potassium 3.3 mmol/L (3.5-5.1)
[2020-03-24 06:51] LABS: Bilirubin, Total 0.5 mg/dL (0.2-1.0); Phosphorus 3.8 mg/dL (2.5-4.90); Total Protein 6.4 g/dL (6.4-8.2)
--- NOTE | 2020-03-24 07:00 | NUR ---
NG Tube Drainage 650ml of output from NG Tube.
[2020-03-24] MEDS: HEPARIN DRIP/D5W 100UNITS/ML 250 ML IV SCH (08:14)
[2020-03-24 09:00] VITALS: BP 138/86
[2020-03-24] MEDS: PANTOPRAZOLE 40 MG/10 ML VIAL INJ IV SCH ×2 (09:19→22:00)
[2020-03-24] MEDS: levoFLOXacin 500MG 100 ML IV SCH (09:19)
[2020-03-24 10:21] LABS: Basophils # (auto) 0 10 ^3/uL (0-0.2); Basophils % (auto) 0.4 % (0.0-2.0); Eosinophils # (auto) 0.2 10 ^3/uL (0-0.8); Eosinophils % (auto) 2.8 % (0.0-7.0); Hematocrit 37.4 % (41.0-53.0); Hemoglobin 12.3 g/dL (13.5-17.5); Lymphocytes # (auto) 2.8 10 ^3/uL (0.4-5.4); Lymphocytes % (auto) 34.5 % (10.0-50.0); Mean Corpuscular Hemoglobin 29.9 pg (28.0-32.0); Mean Corpuscular Volume 90.7 fL (80.0-100.0); Monocytes # (auto) 0.7 10 ^3/uL (0-1.3); Monocytes % (auto) 8.3 % (0.0-12.0); Neutrophils # (auto) 4.3 10 ^3/uL (1.6-8.6); Nucleated Red Blood Cells % 0.2 %; Platelet Count (auto) 297 10^3/uL (140-450); Red Blood Cells 4.13 10^6/uL (4.5-5.90); Red Cell Distribution Width 14.2 % (11.8-14.3)
[2020-03-24] MEDS ORDERED: LIDOCAINE VISCOUS 2% 15ML UD MT PRN (10:30)
[2020-03-24] MEDS ORDERED: HYDROCORTISONE ACET 25 MG RECTAL SUPP PR ONE (10:30)
[2020-03-24] MEDS ORDERED: POTASSIUM CHL 20MEQ/100ML 100 ML IV ONE (11:30)
[2020-03-24] MEDS ORDERED: MAGNESIUM SULFATE 1GM/100ML 100 ML IV ONE (12:00)
[2020-03-24 12:27] LABS: INR 1.19 (0.9-1.15); Partial Thromboplastin Time 56.9 sec (23.0-31.2)
--- NOTE | 2020-03-24 12:31 | NUR ---
aPTT is 56.9. Per eMAR and verification with pharmacy, no change, no bolus. Heparin drip continued at 14ml/hr or 1400units/hr. Next lab draw in 6 hours. Will continue to monitor.
--- NOTE | 2020-03-24 12:35 | NUR ---
Spoke to pharmacist regarding aPTT is been therapeutic, no bolus, no rate change. Per pharmacy , aPTT can check daily.
[2020-03-24 13:00] VITALS: BP 132/88
[2020-03-24] MEDS ORDERED: GASTROGRAFIN 120 ML SOL ONE (13:34)
--- NOTE | 2020-03-24 13:46 | NUR ---
Patient off unit to Radiology.
[2020-03-24] MEDS: D5W/SOD CHL 0.45%/KCL 20MEQ 1,000 ML IV SCH (15:15)
--- NOTE | 2020-03-24 16:10 | NUR ---
Patient came back to unit, AxOx4 and verbally responsive. No respiratory distress noted. Skin is warm and dry to touch. NG off to suction per ophthalmic technician apprentice. Patient rest comfortable. Placed a call light within reach, will continue to monitor.
[2020-03-24 17:00] VITALS: BP 126/98
--- NOTE | 2020-03-24 19:00 | NUR ---
Total Output from NG about 400 ml of clear green fluids.
--- NOTE | 2020-03-24 19:35 | NUR ---
Received report and care of pt. Pt sitting up in bed, Moseley's position, watching TV. NG tube not connected to suct; pt states he is nauseated. This RN attempting to call radiology as day shift RN stated "Part I of small bowel series completed at 1630 and NG not to be to suction until after Part II." No answer in radiology. Only c/o expressed by patient. Bed low; nurse call light is within reach of pt. RN explained that awaiting "Part II", so will call RAD to determine POC for tonight and report to pt. Pt VU and agreement. No answer of phones in Rad; reached US person who will attempt to contact Rad person and have them return this RN's call.
[2020-03-24] MEDS ORDERED: TPN PER PHARMACY IV NR ×6 (20:00)
--- NOTE | 2020-03-24 21:42 | NUR ---
Spoke with Allen in Radiology who stated the follow-up portion of the small bowel series is typically done the following a.m. He further stated that if pt can tolerate keeping the NG turned off, cont to do this. If the pt cannot, nurse may reconnect.
[2020-03-24 22:00] VITALS: BP 119/99
[2020-03-24] MEDS: HYDROCORTISONE ACET 25 MG RECTAL SUPP PR SCH (22:00)
[2020-03-25] VITALS (7 sets, daily range): BP systolic 123–145; BP diastolic 73–96
[2020-03-25] MEDS: HEPARIN DRIP/D5W 100UNITS/ML 250 ML IV SCH ×2 (02:14→20:26)
[2020-03-25 05:19] LABS: Basophils # (auto) 0 10 ^3/uL (0-0.2); Basophils % (auto) 0.6 % (0.0-2.0); Eosinophils # (auto) 0.2 10 ^3/uL (0-0.8); Eosinophils % (auto) 4.1 % (0.0-7.0); Hematocrit 34.8 % (41.0-53.0); Hemoglobin 11.4 g/dL (13.5-17.5); Lymphocytes # (auto) 1.8 10 ^3/uL (0.4-5.4); Lymphocytes % (auto) 30.8 % (10.0-50.0); Mean Corpuscular Hgb Conc. 32.8 g/dL (32.0-36.0); Mean Corpuscular Volume 91.4 fL (80.0-100.0); Monocytes # (auto) 0.5 10 ^3/uL (0-1.3); Monocytes % (auto) 8.5 % (0.0-12.0); Neutrophils # (auto) 3.3 10 ^3/uL (1.6-8.6); Nucleated Red Blood Cells % 0.1 %; Platelet Count (auto) 278 10^3/uL (140-450); Red Blood Cells 3.81 10^6/uL (4.5-5.90); Red Cell Distribution Width 13.9 % (11.8-14.3); White Blood Cell 5.9 10^3/uL (4.4-10.8)
[2020-03-25 05:33] LABS: INR 1.14 (0.9-1.15); Partial Thromboplastin Time 65.3 sec (23.0-31.2)
[2020-03-25 05:39] LABS: Albumin 2.5 g/dL (3.4-5.0); Calcium 8.3 mg/dL (8.5-10.1); Potassium 3.9 mmol/L (3.5-5.1)
[2020-03-25 05:46] LABS: BUN/Creatinine Ratio 12.1; Bilirubin, Total 0.4 mg/dL (0.2-1.0); Magnesium 2.2 mg/dL (1.6-2.6); Total Protein 6.6 g/dL (6.4-8.2)
[2020-03-25] MEDS: InsuLIN REG 1unit/0.01ml Soln (100units/ml) SC SCH ×4 (06:00→18:00)
[2020-03-25] MEDS: ACCU-CHEK COMFORT CURVE STRIP VI SCH ×4 (06:00→18:07)
[2020-03-25] MEDS: metroNIDAZOLE 500MG/100ML 100 ML IV SCH ×3 (06:00→21:03)
[2020-03-25] MEDS: MORPHINE SULFATE 4 MG/ML SYR/VIAL IV PRN ×3 (07:21→21:05)
--- NOTE | 2020-03-25 07:32 | NUR ---
Pt cont to have black gallegos colored bm in toilet. Med for abd pain; morphine only per pt request. Cont A&O x4. Applied heating packs to abd and back of neck during night for pain; pt able to sleep. Replenished bags prn himself. Report to oncoming ALONA.
[2020-03-25] MEDS: HYDROCORTISONE ACET 25 MG RECTAL SUPP PR SCH ×3 (09:45→21:11)
[2020-03-25] MEDS: levoFLOXacin 500MG 100 ML IV SCH (09:45)
[2020-03-25] MEDS: PANTOPRAZOLE 40 MG/10 ML VIAL INJ IV SCH ×2 (09:45→21:04)
--- NOTE | 2020-03-25 10:07 | NUR ---
Per vasc tech, NG can connect to LIS.
[2020-03-25] MEDS: D5W/SOD CHL 0.45%/KCL 20MEQ 1,000 ML IV SCH ×2 (11:18→17:51)
[2020-03-25] MEDS: ONDANSETRON HCL 4 MG/2 ML VIAL IV PRN (11:32)
--- NOTE | 2020-03-25 12:59 | NUR ---
Patient does not want NG, he pulled it out himself. Dr. Saeed paged.
--- NOTE | 2020-03-25 13:04 | NUR ---
Received a call from Dr. Saeed aware of patient pulled out NG, per MD keep patient NPO.
--- NOTE | 2020-03-25 13:53 | NUR ---
Received Consult on 03/24 for pt for TPN, pt seen on 03/23.
--- NOTE | 2020-03-25 19:00 | NUR ---
Opening Shift Note Assumed care of patient, awake and alert. No S/S of distress/SOB, patient c/o pain in his abdomen of 7/10, will administer medications per protocol. Instructed on POC and to call for assist PRN, will continue to monitor for changes Q1hr and PRN. Patient in the lowest possible position with bed rails up x2 and call light within reach.
[2020-03-25] MEDS ORDERED: TPN PER PHARMACY IV NR ×7 (20:00)
--- NOTE | 2020-03-25 20:15 | NUR ---
Heparin drip started Drip continued at 14ml/hr, in therapeutic range, rechecking aPTT in 24 hours per protocol. Last known reading 65.3, next blood draw to be done 0430 in the morning of 03/26. Will continue to monitor and wait for labs.
[2020-03-26] MEDS: ACCU-CHEK COMFORT CURVE STRIP VI SCH ×4 (00:29→18:03)
[2020-03-26] MEDS: ONDANSETRON HCL 4 MG/2 ML VIAL IV PRN ×2 (01:25→21:23)
[2020-03-26 05:00] VITALS: BP 118/84
[2020-03-26] MEDS: InsuLIN REG 1unit/0.01ml Soln (100units/ml) SC SCH ×4 (06:00→18:00)
[2020-03-26] MEDS: metroNIDAZOLE 500MG/100ML 100 ML IV SCH ×3 (06:04→21:24)
[2020-03-26 06:53] LABS: Albumin 2.1 g/dL (3.4-5.0); Calcium 8.1 mg/dL (8.5-10.1); Magnesium 1.7 mg/dL (1.6-2.6)
[2020-03-26 06:55] LABS: INR 1.13 (0.9-1.15); Partial Thromboplastin Time 69.3 sec (23.0-31.2)
[2020-03-26 06:57] LABS: BUN/Creatinine Ratio 13.4; Bilirubin, Total 0.3 mg/dL (0.2-1.0); Phosphorus 3.9 mg/dL (2.5-4.90); Total Protein 5.4 g/dL (6.4-8.2)
--- NOTE | 2020-03-26 07:00 | NUR ---
aPTT 69.3. Per eMAR, no change indicated, lab in therapeutic range. Continue to run at 14ml/hr. Next lab draw to be done in 24 hours to recheck for therapeutic levels. Will continue to monitor.
[2020-03-26 09:00] VITALS: BP 113/76
[2020-03-26] MEDS: PANTOPRAZOLE 40 MG/10 ML VIAL INJ IV SCH ×2 (09:37→21:25)
[2020-03-26] MEDS: levoFLOXacin 500MG 100 ML IV SCH (09:37)
[2020-03-26] MEDS: HYDROCORTISONE ACET 25 MG RECTAL SUPP PR SCH ×2 (10:00→21:24)
--- NOTE | 2020-03-26 11:14 | NUR ---
Nutrition Followup Note Wt: 80.9 kg Pt was sleeping, is s/p extubation with SBO. pt is currently NPO on PN support @ 55 ml/hr providing 1300 kcals and 70 gm proteins 1020 NCP. Est Energy needs BW 96 [id number] kcals (23-25 kcal/kgBW), Est Protein needs: 96-105 gms/day (1.0-1.1 gm/kgBW). Will continue to monitor and reassess prn. LABS: Ca 8.1L, Alb 2.1L GI: Pt had 2 BM on 03/22, diarrhea, per RN doc BS: 18 mod risk. Refer to wound assessment report for further details PES: Resolved: Impaired swallowing r.t current medical condition aeb pt`s intubated sedated with order of NPO partially resolved: Altered nutrition related lab values r.t current chronic medical condition aeb elev RFT severe hypoalb hypocalcemia Comments: Will continue to monitor NPO status, PN tolerance and skin status F/u high 2-3 days Rec: 1) advance diet as medically feasible. 2) advance PN support to meet > 75% of needs. 3) continue current plan of care
[2020-03-26] MEDS: HEPARIN DRIP/D5W 100UNITS/ML 250 ML IV SCH (13:47)
[2020-03-26 16:29] VITALS: BP 128/84
[2020-03-26] MEDS ORDERED: TPN PER PHARMACY IV NR ×8 (20:00)
[2020-03-26 22:00] VITALS: BP 132/79
[2020-03-26] MEDS ORDERED: APIXABAN 5 MG TAB PO SCH (22:00)
[2020-03-27] VITALS (9 sets, daily range): BP systolic 108–130; BP diastolic 59–88
[2020-03-27] MEDS ORDERED: PROMETHAZINE HCL 25 MG/ML 1ML IV ONE (01:00)
--- NOTE | 2020-03-27 01:06 | NUR ---
Obtained order for x1 alt nausea medication. Pt reports decreased nausea and does not want medication at this time. Instructed PT to report any increase in nausea.
[2020-03-27] MEDS: D5W/SOD CHL 0.45%/KCL 20MEQ 1,000 ML IV SCH (03:48)
--- NOTE | 2020-03-27 04:03 | NUR ---
Heparin drip stopped and disconnected from PT per MD's written instructions.
[2020-03-27] MEDS: ACCU-CHEK COMFORT CURVE STRIP VI SCH ×4 (05:34→18:00)
[2020-03-27] MEDS: metroNIDAZOLE 500MG/100ML 100 ML IV SCH ×3 (05:35→23:22)
[2020-03-27] MEDS: InsuLIN REG 1unit/0.01ml Soln (100units/ml) SC SCH ×4 (06:00→18:00)
[2020-03-27 06:06] LABS: INR 1.09 (0.9-1.15); Partial Thromboplastin Time 51.4 sec (23.0-31.2)
[2020-03-27 06:10] LABS: Albumin 2.4 g/dL (3.4-5.0); Calcium 8.3 mg/dL (8.5-10.1); Magnesium 1.9 mg/dL (1.6-2.6); Potassium 3.6 mmol/L (3.5-5.1)
[2020-03-27 06:13] LABS: BUN/Creatinine Ratio 11.4; Bilirubin, Total 0.2 mg/dL (0.2-1.0); Phosphorus 3.6 mg/dL (2.5-4.90); Total Protein 6.2 g/dL (6.4-8.2)
[2020-03-27] MEDS ORDERED: POVIDONE IODINE 10 % TOPICAL OINT 30GM TOP ONE (07:01)
--- NOTE | 2020-03-27 07:45 | NUR ---
Opening Shift Note Assumed care of patient, awake and alert. No S/S of distress/SOB or pain. Instructed on POC and to call for assist PRN, will continue to monitor for changes Q1hr and PRN. Patient is awaiting cardiology clearance for surgery.
--- NOTE | 2020-03-27 07:51 | NUR ---
Cardiology consult Patient received cardiology clearance for surgery.
[2020-03-27] MEDS: levoFLOXacin 500MG 100 ML IV SCH (09:32)
[2020-03-27] MEDS: PANTOPRAZOLE 40 MG/10 ML VIAL INJ IV SCH ×2 (09:32→23:22)
[2020-03-27] MEDS: HYDROCORTISONE ACET 25 MG RECTAL SUPP PR SCH ×2 (09:34→22:00)
--- NOTE | 2020-03-27 10:25 | NUR ---
Medical Records Coordinator Rounded Dr. Ordonez at bedside, patient received medical certification specialist clearance for surgery.
--- NOTE | 2020-03-27 11:45 | NUR ---
Off Unit Patient brought to pre-op. No obvious distress or complaints.
[2020-03-27] MEDS ORDERED: HYDROmorphone HCL 2 MG/ML VL ONE ×2 (13:55→16:44)
[2020-03-27] MEDS ORDERED: ONDANSETRON HCL 4 MG/2 ML VIAL ONE (13:56)
[2020-03-27] MEDS ORDERED: MIDAZOLAM HCL 1MG/1ML-2 ML VIAL ONE ×3 (13:56→15:55)
[2020-03-27] MEDS ORDERED: PROPOFOL 10 MG/ML 20 ML IV ONE (13:56)
[2020-03-27] MEDS ORDERED: SODIUM CHLORIDE LOCK 10 ML ONE (13:56)
[2020-03-27] MEDS ORDERED: fentaNYL CITRATE 100 MCG/2 ML VL ONE (13:56)
[2020-03-27] MEDS ORDERED: fentaNYL CITRATE 5 ML ONE (13:56)
[2020-03-27] MEDS ORDERED: ROCURONIUM 10MG/ML 10ML VIAL IV ONE (13:56)
[2020-03-27] MEDS ORDERED: fentaNYL Drip 2500mCg/250mlNS 250 ML IV SCH (16:15)
[2020-03-27] MEDS ORDERED: PROPOFOL 100 ML IV SCH (16:15)
[2020-03-27] MEDS ORDERED: MIDAZOLAM DRIP 50 mg/50mL 50 ML IV SCH (16:15)
[2020-03-27] MEDS ORDERED: PROPOFOL 100 ML IV ONE (16:17)
--- NOTE | 2020-03-27 18:20 | NUR ---
ICU status As per in house cra, patient will not be returning to the unit. He is not ICU status and will be transferred to [facility] for observation. All patient's personal belongings sent to [facility] for the patient.
[2020-03-27] MEDS ORDERED: TPN PER PHARMACY IV NR ×8 (20:00)
--- NOTE | 2020-03-27 20:00 | NUR ---
REPORT RECEIVED FROM SUPERVISOR LABOR GANG AND PT. TO TRANSFER TO [facility]OGA TEACHER-ICU BED #7, PT. ISOLATION FOR C-DIFF.
--- NOTE | 2020-03-27 20:10 | NUR ---
PT. ARRIVED VIA TELE BED WITH X2 TUTORING CLINICIAN; PT. PLACED ON BEDSIDE MONITOR; PT. INTUBATED/LIGHTLY SEDATED (PT. FOLLOWING COMMANDS); VS STABLE AT THIS TIME; SEE INTERVENTION FOR ASSESSMENT; SEE IV SPREADSHEET FOR GTTS; PT. HAD EXPLORATORY LAP WITH DR. NUÑEZ AND RELEASED SBO WITH SMALL BOWEL RESECTION; PT. HAS MIDLINE INCISION WITH NO NEW DRAINAGE OBSERVED ON GAUZE DRESSING; RT. NGT TO CONT. LOW-WALL SUCTION PER DR. MENDEZ; WILL CONT. TO MONITOR.
[2020-03-28] VITALS (21 sets, daily range): BP systolic 86–145; BP diastolic 61–93
[2020-03-28] MEDS: D5W/SOD CHL 0.45%/KCL 20MEQ 1,000 ML IV SCH ×2 (00:15→19:15)
[2020-03-28] MEDS: InsuLIN REG 1unit/0.01ml Soln (100units/ml) SC SCH ×5 (01:20→23:58)
[2020-03-28] MEDS: ACCU-CHEK COMFORT CURVE STRIP VI SCH ×5 (01:20→23:58)
[2020-03-28 04:31] LABS: Albumin 1.9 g/dL (3.4-5.0); BUN/Creatinine Ratio 11.7; Calcium 7.4 mg/dL (8.5-10.1); Magnesium 1.8 mg/dL (1.6-2.6); Potassium 3.7 mmol/L (3.5-5.1)
[2020-03-28 04:33] LABS: Bilirubin, Total 0.2 mg/dL (0.2-1.0); Total Protein 4.7 g/dL (6.4-8.2)
[2020-03-28] MEDS: metroNIDAZOLE 500MG/100ML 100 ML IV SCH ×3 (06:15→21:17)
--- NOTE | 2020-03-28 07:15 | NUR ---
PT CARE REPORT RECEIVED. ASSUMED CARE OF PT. BED LOW/LOCKED. PT INTUBATED/SEDATED BUT AWAKE AND ALERT. VS WNL. WILL CONTINUE TO MONITOR PT.
--- NOTE | 2020-03-28 07:40 | NUR ---
PLACED PT. ON CPAP, P.S. 8, PEEP 5, 35% FIO2. PT. AWAKE AND FOLLOWS ALL COMMANDS, NO RESP. DISTRESS NOTED. RN AWARE.
--- NOTE | 2020-03-28 08:20 | NUR ---
PT. EXTUBATED PER ORDERED, PLACED ON 35% COOL AEROSOL VIA MASK. PT. AWAKE, STRONG COUGH-NO STRIDOR NOTED. HR 111, RR 16, POX 955. RN AWARE.
[2020-03-28] MEDS: levoFLOXacin 500MG 100 ML IV SCH (10:00)
[2020-03-28] MEDS: PANTOPRAZOLE 40 MG/10 ML VIAL INJ IV SCH ×2 (10:00→21:17)
--- NOTE | 2020-03-28 11:32 | NUR ---
DR NUÑEZ AT BEDSIDE. VISUALIZED ABD INCISION SITE. NEW DRESSING APPLIED PER MD ORDERS. MINIMAL SANGUINOUS DRAINAGE NOTED. NEW ORDERS OF PHYSICAL THERAPY TO GET PT OUT OF BED. WILL CONTINUE TO MONITOR PT.
[2020-03-28] MEDS ORDERED: ENOXAPARIN SOD 80 MG/0.8ML SYRINGE SC ONE (12:15)
--- NOTE | 2020-03-28 12:30 | NUR ---
PHYSICAL THERAPY AT BEDSIDE - PT TO AMBULATE TOLERATED.
--- NOTE | 2020-03-28 12:48 | NUR ---
PT AMBULATED APPROX 40 FEET WITH WALKER. PT PLACED ON 4LPM NASAL CANNULA FOR AMBULATION ACTIVITY - PT TOLERATED WELL. WILL CONTINUE TO MONITOR PT.
--- NOTE | 2020-03-28 14:05 | NUR ---
NEW ORDER FOR DOWNGRADE TO TELE STATUS. LABORATORY ASSOCIATE NOTIFIED.
--- NOTE | 2020-03-28 14:59 | NUR ---
NEW BED ASSIGNMENT TO ROOM 287-B.
--- NOTE | 2020-03-28 15:07 | NUR ---
Nutrition Followup Note Wt: 77.8 kg Pt was sleeping, is s/p extubation with SBO. pt is currently NPO on PN support @ 76 ml/hr providing 1920 kcals and 90 gm proteins 1560 NCP. Est Energy needs BW 96 [id number] kcals (23-25 kcal/kgBW), Est Protein needs: 96-105 gms/day (1.0-1.1 gm/kgBW). Will continue to monitor and reassess prn. LABS: GLU 120 H CA 7.4 L ALB 1.9 L GI: Pt had 2 BM on 03/26, diarrhea, per RN doc BS: 16 mod risk. Refer to wound assessment report for further details PES: Resolved: Impaired swallowing r.t current medical condition aeb pt`s intubated sedated with order of NPO partially resolved: Altered nutrition related lab values r.t current chronic medical condition aeb elev RFT severe hypoalb hypocalcemia Comments: Will continue to monitor NPO status, PN tolerance and skin status F/u high 2-3 days Rec: 1) advance diet as medically feasible. 2) advance PN support to meet > 75% of needs. 3) continue current plan of care
--- NOTE | 2020-03-28 15:16 | NUR ---
REPORT GIVEN TO GUEST RELATION OFFICER VIA TELEPHONE. PT TO BE TRANSPORTED TO TELE BED 287-B VIA [facility]. AWAITING CONFIRMATION OF CLEAN ROOM FROM GUEST RELATION OFFICER.
[2020-03-28] MEDS: MORPHINE SULFATE 4 MG/ML SYR/VIAL IV PRN ×2 (15:26→20:05)
[2020-03-28] MEDS: ONDANSETRON HCL 4 MG/2 ML VIAL IV PRN (15:27)
--- NOTE | 2020-03-28 15:57 | NUR ---
PATIENT TRANSFER FROM ICU Patient placed on bedside oxygen, ng tube connected to suction as ordered. No signs of distress noted.
--- NOTE | 2020-03-28 16:00 | NUR ---
PT TRANSPORTED TO TELE BED 287-B. BEDSIDE PT CARE UPDATE PROVIDED TO DELIVERY DRIVER ASSISTANT. PT CARE ENDORSED TO DELIVERY DRIVER ASSISTANT DINO.
--- NOTE | 2020-03-28 19:00 | NUR ---
Opening Shift Note Assumed care of patient, awake and alert. No S/S of distress/SOB or pain. Instructed on POC and to call for assist PRN, will continue to monitor for changes Q1hr and PRN. Patient in the lowest possible position with call light within reach, bed rails up x2. Patient isolation for c-diff.
[2020-03-28] MEDS ORDERED: TPN PER PHARMACY IV NR ×7 (20:00)
--- NOTE | 2020-03-28 20:00 | NUR ---
Patient c/o pain in his incision site. Will administer medications per protocol.
[2020-03-28] MEDS: ENOXAPARIN SOD 80 MG/0.8ML SYRINGE SC SCH (21:18)
[2020-03-29] VITALS (12 sets, daily range): BP systolic 117–152; BP diastolic 80–93
--- NOTE | 2020-03-29 | NUR ---
Patient c/o pain in his incision site 12/04, will administer pain medication per protocol. Will continue to monitor patient.
[2020-03-29] MEDS: MORPHINE SULFATE 4 MG/ML SYR/VIAL IV PRN ×6 (00:01→22:46)
[2020-03-29] MEDS: InsuLIN REG 1unit/0.01ml Soln (100units/ml) SC SCH ×3 (05:41→18:00)
[2020-03-29] MEDS: metroNIDAZOLE 500MG/100ML 100 ML IV SCH ×3 (05:41→22:46)
[2020-03-29] MEDS: ACCU-CHEK COMFORT CURVE STRIP VI SCH ×3 (05:41→17:41)
[2020-03-29 06:49] LABS: Basophils # (auto) 0 10 ^3/uL (0-0.2); Eosinophils # (auto) 0.1 10 ^3/uL (0-0.8); Monocytes # (auto) 0.6 10 ^3/uL (0-1.3); Neutrophils # (auto) 4.5 10 ^3/uL (1.6-8.6)
[2020-03-29 06:52] LABS: Basophils % (auto) 0.6 % (0.0-2.0); Eosinophils % (auto) 1.9 % (0.0-7.0); Hematocrit 19.3 % (41.0-53.0); Lymphocytes # (auto) 1.9 10 ^3/uL (0.4-5.4); Lymphocytes % (auto) 25.9 % (10.0-50.0); Mean Corpuscular Hgb Conc. 33.5 g/dL (32.0-36.0); Mean Corpuscular Volume 89.6 fL (80.0-100.0); Neutrophils % (auto) 62.6 % (37.0-80.0); Platelet Count (auto) 289 10^3/uL (140-450); Red Blood Cells 2.16 10^6/uL (4.5-5.90); Red Cell Distribution Width 14.1 % (11.8-14.3); White Blood Cell 7.1 10^3/uL (4.4-10.8)
[2020-03-29 07:00] LABS: Hemoglobin 6.5 g/dL (13.5-17.5)
[2020-03-29 07:04] LABS: Albumin 2.1 g/dL (3.4-5.0); Calcium 7.9 mg/dL (8.5-10.1); Potassium 4.1 mmol/L (3.5-5.1)
[2020-03-29 07:09] LABS: BUN/Creatinine Ratio 10.1; Bilirubin, Total 0.4 mg/dL (0.2-1.0); Magnesium 1.9 mg/dL (1.6-2.6); Total Protein 5.6 g/dL (6.4-8.2)
--- NOTE | 2020-03-29 07:40 | NUR ---
Critical hgb 6.5 reported. notified. Hospitalist put in orders for KUB, 2 units PRBC's, and MD Dr. Saeed to be paged. Will carry out orders and await call back from .
[2020-03-29 09:16] LABS: Pre Albumin 14.4 mg/dL (20.0-40.0)
[2020-03-29] MEDS: PANTOPRAZOLE 40 MG/10 ML VIAL INJ IV SCH ×2 (09:46→22:47)
[2020-03-29] MEDS: levoFLOXacin 500MG 100 ML IV SCH (09:46)
[2020-03-29] MEDS: ENOXAPARIN SOD 80 MG/0.8ML SYRINGE SC SCH (10:00)
--- NOTE | 2020-03-29 10:53 | NUR ---
PT TO RECEIVE 2 UNITS PRBC'S. PER BLOOD BANK, THERE IS A SHORTAGE OF 0 NEGATIVE BLOOD. PT TO TRANSFUSE 1 UNIT 0 NEGATIVE BLOOD, 0KAY TO TRANSFUSE [address] GREGG. BLOOD BANK NOTIFIED, AWARE.
[2020-03-29 12:47] LABS: INR 1.12 (0.9-1.15); Partial Thromboplastin Time 28.6 sec (23.0-31.2)
[2020-03-29] MEDS: ONDANSETRON HCL 4 MG/2 ML VIAL IV PRN ×3 (13:18→22:46)
--- NOTE | 2020-03-29 16:32 | NUR ---
[place] CATHETER REMOVED, PT VOIDING WITHOUT DIFFICULTY. AMBULATED WITH P.T., OUT OF BED TO CHAIR CURRENTLY. 2ND UNIT BLOOD TRANSFUSING AT THIS TIME. VSS. MONITORING CLOSELY.
--- NOTE | 2020-03-29 18:31 | NUR ---
2 UNITS PRBC'S TRANSFUSED WITHOUT DIFFICULTY NOTED. VITAL SIGNS REMAINED STABLE THROUGHOUT.
[2020-03-29] MEDS ORDERED: TPN PER PHARMACY IV NR ×9 (20:00)
[2020-03-30] MEDS: ACCU-CHEK COMFORT CURVE STRIP VI SCH ×4 (01:14→17:16)
[2020-03-30 05:00] VITALS: BP 136/82
[2020-03-30] MEDS: InsuLIN REG 1unit/0.01ml Soln (100units/ml) SC SCH ×4 (06:00→17:17)
[2020-03-30] MEDS: metroNIDAZOLE 500MG/100ML 100 ML IV SCH ×3 (06:36→22:12)
--- NOTE | 2020-03-30 07:30 | NUR ---
Opening Shift Note Assumed care of patient, awake and alert. No S/S of distress/SOB. pt. reports pain 8 out of 10, This RN will address accordingly based on medication prescribed. Instructed on POC and to call for assist PRN, will continue to monitor for changes Q1hr and PRN. Patient in the lowest possible position with call light within reach, bed rails up x2. Patient isolation for c-diff.
[2020-03-30 08:11] LABS: Basophils # (auto) 0.1 10 ^3/uL (0-0.2); Basophils % (auto) 0.9 % (0.0-2.0); Eosinophils # (auto) 0.2 10 ^3/uL (0-0.8); Eosinophils % (auto) 2.3 % (0.0-7.0); Hematocrit 27.2 % (41.0-53.0); Hemoglobin 9.4 g/dL (13.5-17.5); Lymphocytes # (auto) 2.3 10 ^3/uL (0.4-5.4); Mean Corpuscular Hemoglobin 31.2 pg (28.0-32.0); Mean Corpuscular Hgb Conc. 34.5 g/dL (32.0-36.0); Mean Corpuscular Volume 90.7 fL (80.0-100.0); Monocytes # (auto) 0.6 10 ^3/uL (0-1.3); Monocytes % (auto) 7.9 % (0.0-12.0); Neutrophils # (auto) 4.7 10 ^3/uL (1.6-8.6); Neutrophils % (auto) 59.9 % (37.0-80.0); Nucleated Red Blood Cells % 0.1 %; Platelet Count (auto) 332 10^3/uL (140-450); Red Cell Distribution Width 13.9 % (11.8-14.3); White Blood Cell 7.8 10^3/uL (4.4-10.8)
[2020-03-30 08:32] LABS: Potassium 4.1 mmol/L (3.5-5.1)
[2020-03-30 08:40] LABS: Albumin 2.3 g/dL (3.4-5.0); BUN/Creatinine Ratio 12.6; Bilirubin, Total 0.4 mg/dL (0.2-1.0); Calcium 8.3 mg/dL (8.5-10.1); Magnesium 2.3 mg/dL (1.6-2.6); Phosphorus 3.8 mg/dL (2.5-4.90); Total Protein 6.7 g/dL (6.4-8.2)
[2020-03-30 09:00] VITALS: BP 117/52
[2020-03-30] MEDS: levoFLOXacin 500MG 100 ML IV SCH (10:58)
[2020-03-30] MEDS: PANTOPRAZOLE 40 MG/10 ML VIAL INJ IV SCH ×2 (10:58→22:12)
[2020-03-30] MEDS: ONDANSETRON HCL 4 MG/2 ML VIAL IV PRN ×2 (10:59→17:16)
[2020-03-30] MEDS: MORPHINE SULFATE 4 MG/ML SYR/VIAL IV PRN ×3 (11:00→22:13)
[2020-03-30 13:00] VITALS: BP 128/84
--- NOTE | 2020-03-30 14:22 | NUR ---
Nutrition Followup Note Wt: 85.0 kg Pt was sleeping, is s/p extubation with SBO. pt is currently NPO on PN support @ 92 ml/hr providing 2340 kcals and 110 gm proteins 1900 NCP. pt with adequate PN support as it meets 97-105% kcals and 104-114% proteins [employer] needs BW 96 [id number] kcals (23-25 kcal/kgBW), Est Protein needs: 96-105 gms/day (1.0-1.1 gm/kgBW). Will continue to monitor and reassess prn. LABS: GLU 110 H CA 8.3 L ALB 2.3 L GI: Pt had 2 BM on 03/26, diarrhea, per RN doc BS: 16 mod risk. Refer to wound assessment report for further details PES: Resolved: Impaired swallowing r.t current medical condition aeb pt`s intubated sedated with order of NPO partially resolved: Altered nutrition related lab values r.t current chronic medical condition aeb elev RFT severe hypoalb hypocalcemia Comments: Will continue to monitor NPO status, PN tolerance and skin status F/u high 2-3 days Rec: 1) advance diet as medically feasible. 2) advance PN support to meet > 75% of needs. 3) continue current plan of care
--- NOTE | 2020-03-30 16:11 | NUR ---
PATIENT ABLE TO AMBULATE WITH SBA. D/C FROM P.T. NURSING TO ASSIST PATIENT NEEDED.
[2020-03-30 17:27] VITALS: BP 134/98
--- NOTE | 2020-03-30 18:36 | NUR ---
This RN endorsed care to [facility] nurse. pt. resting comfortably in bed; bed in lowest position, siderails up x2 and call light within reach.
--- NOTE | 2020-03-30 19:30 | NUR ---
OPENING SHIFT NOTE Pt is sitting up at bedside and watching TV. No s/s of any distress at this time. POC discussed with pt and pt verbalizes understanding. Bed is low, wheels are locked, and call light is with in reach.
[2020-03-30] MEDS ORDERED: TPN PER PHARMACY IV NR ×11 (20:00)
[2020-03-30] MEDS: ENOXAPARIN SOD 60 MG/0.6 ML SYRINGE SC SCH (22:13)
[2020-03-31] MEDS: MORPHINE SULFATE 4 MG/ML SYR/VIAL IV PRN ×4 (03:12→21:50)
[2020-03-31] MEDS: InsuLIN REG 1unit/0.01ml Soln (100units/ml) SC SCH ×5 (05:45→22:58)
[2020-03-31] MEDS: ACCU-CHEK COMFORT CURVE STRIP VI SCH ×5 (05:49→21:48)
[2020-03-31] MEDS: metroNIDAZOLE 500MG/100ML 100 ML IV SCH ×3 (05:49→21:47)
--- NOTE | 2020-03-31 07:25 | NUR ---
Opening Shift Note Assumed care of patient, awake and alert. No S/S of distress/SOB. pt. reports pain 6 out of 10, This RN will address accordingly based on medication prescribed. Instructed on POC and to call for assist PRN, will continue to monitor for changes Q1hr and PRN. Patient in the lowest possible position with call light within reach, bed rails up x2. Patient isolation for c-diff.
[2020-03-31 08:11] LABS: Basophils # (auto) 0.1 10 ^3/uL (0-0.2); Eosinophils # (auto) 0.3 10 ^3/uL (0-0.8); Eosinophils % (auto) 3.8 % (0.0-7.0); Hematocrit 26.5 % (41.0-53.0); Hemoglobin 9.1 g/dL (13.5-17.5); Lymphocytes # (auto) 2.1 10 ^3/uL (0.4-5.4); Lymphocytes % (auto) 30.1 % (10.0-50.0); Mean Corpuscular Hemoglobin 30.8 pg (28.0-32.0); Mean Corpuscular Hgb Conc. 34.2 g/dL (32.0-36.0); Mean Corpuscular Volume 89.9 fL (80.0-100.0); Monocytes # (auto) 0.5 10 ^3/uL (0-1.3); Neutrophils % (auto) 58.1 % (37.0-80.0); Nucleated Red Blood Cells % 0.1 %; Platelet Count (auto) 332 10^3/uL (140-450); Red Blood Cells 2.95 10^6/uL (4.5-5.90); Red Cell Distribution Width 14.4 % (11.8-14.3); White Blood Cell 6.9 10^3/uL (4.4-10.8)
[2020-03-31 08:29] LABS: Potassium 3.7 mmol/L (3.5-5.1)
[2020-03-31 08:39] LABS: Albumin 2.2 g/dL (3.4-5.0); BUN/Creatinine Ratio 14.1; Bilirubin, Total 0.3 mg/dL (0.2-1.0); Calcium 8.4 mg/dL (8.5-10.1); Phosphorus 3.8 mg/dL (2.5-4.90); Total Protein 6.4 g/dL (6.4-8.2)
[2020-03-31 09:00] VITALS: BP 148/87
[2020-03-31] MEDS: PANTOPRAZOLE 40 MG/10 ML VIAL INJ IV SCH ×2 (09:14→21:48)
[2020-03-31] MEDS: levoFLOXacin 500MG 100 ML IV SCH (09:14)
[2020-03-31] MEDS: ENOXAPARIN SOD 60 MG/0.6 ML SYRINGE SC SCH ×2 (09:14→21:48)
[2020-03-31] MEDS: ONDANSETRON HCL 4 MG/2 ML VIAL IV PRN ×3 (09:14→21:49)
--- NOTE | 2020-03-31 11:45 | NUR ---
THIS RN LEFT DR. RAMIREZ (WHO IS COVERING FOR DR. HADDAD) ABOUT DISCONTINUING PT.'S NASOGASTRIC TUBE AND GETTING THE PT. SOME FOOD. PT. HAS PASSED GAS AND HAD SEVERAL BOWELS MOVEMENTS WITHIN THE LAST DAY. DR. ANTHONY ROUNDED ON PT. BUT ASKED THAT THIS RN SPEAK TO DR. NUÑEZ ABOUT D/C OF NG TUBE.
--- NOTE | 2020-03-31 13:04 | NUR ---
THIS RN SPOKE TO DR. ANTHONY; GAVE ORDER TO REMOVE NG TUBE PER PT.'S REQUEST DUE TO PT. SAYING "I WILL JUST WALK OUT. I AM TIRED OF BEING HERE AND HAVING THIS THING IN MY NOSE." ALSO GAVE ORDER FOR FULL LIQUID DIET. THIS RN WILL ADDRESS ACCORDINGLY.
[2020-03-31 17:00] VITALS: BP 133/87
[2020-03-31] MEDS ORDERED: TPN PER PHARMACY IV NR ×11 (20:00)
[2020-03-31 21:00] VITALS: BP 133/89
[2020-04-01] MEDS: MORPHINE SULFATE 4 MG/ML SYR/VIAL IV PRN ×4 (03:28→21:43)
[2020-04-01] MEDS: ONDANSETRON HCL 4 MG/2 ML VIAL IV PRN ×3 (03:29→16:43)
[2020-04-01 05:00] VITALS: BP 134/90
[2020-04-01] MEDS: InsuLIN REG 1unit/0.01ml Soln (100units/ml) SC SCH ×3 (06:00→18:00)
[2020-04-01] MEDS: metroNIDAZOLE 500MG/100ML 100 ML IV SCH ×3 (06:10→21:32)
[2020-04-01] MEDS: ACCU-CHEK COMFORT CURVE STRIP VI SCH ×3 (06:11→18:43)
[2020-04-01 06:26] LABS: Potassium 4.4 mmol/L (3.5-5.1)
[2020-04-01 06:37] LABS: Albumin 2.2 g/dL (3.4-5.0); Bilirubin, Total 0.2 mg/dL (0.2-1.0); Calcium 8.6 mg/dL (8.5-10.1); Magnesium 2.3 mg/dL (1.6-2.6); Phosphorus 4.3 mg/dL (2.5-4.90); Total Protein 6.2 g/dL (6.4-8.2)
--- NOTE | 2020-04-01 07:20 | NUR ---
Opening Shift Note Assumed care of patient, awake and alert X4. No S/S of distress/SOB or pain. Instructed on POC and to call for assist PRN, will continue to monitor for changes Q1hr and PRN.
[2020-04-01 09:00] VITALS: BP 129/70
[2020-04-01] MEDS: levoFLOXacin 500MG 100 ML IV SCH (11:34)
[2020-04-01] MEDS: PANTOPRAZOLE 40 MG/10 ML VIAL INJ IV SCH ×2 (11:35→21:32)
[2020-04-01] MEDS: ENOXAPARIN SOD 60 MG/0.6 ML SYRINGE SC SCH ×2 (11:35→21:32)
--- NOTE | 2020-04-01 11:48 | NUR ---
Nutrition Followup Note Wt: 81.5 kg Pt was sleeping, is s/p extubation with SBO. pt is currently NPO on PN support @ 95 ml/hr providing 2340 kcals and 110 gm proteins 1900 NCP. pt with adequate PN support as it meets 97-105% kcals and 104-114% proteins [employer] needs BW 96 [id number] kcals (23-25 kcal/kgBW), Est Protein needs: 96-105 gms/day (1.0-1.1 gm/kgBW). Will continue to monitor and reassess prn. LABS: GLUC 112H, alb 2.2L GI: Pt with 3 BMs / per Rn note BS: 16 mod risk. Refer to wound assessment report for further details PES: Resolved: Impaired swallowing r.t current medical condition aeb pt`s intubated sedated with order of NPO partially resolved: Altered nutrition related lab values r.t current chronic medical condition aeb elev RFT severe hypoalb hypocalcemia Comments: Will continue to monitor NPO status, PN tolerance and skin status F/u high 2-3 days Rec: 1) advance diet as medically feasible. 2) advance PN support to meet > 75% of needs. 3) continue current plan of care
--- NOTE | 2020-04-01 12:30 | NUR ---
PT. TRIPLE LUMEN CATH CAME OUT. DR. ANTHONY IS AWARE AND WILL ADVISE ON March IF ANOTHER ONE IS NEEDED. Addendum: 04/01/20 at 1648 by SANJANA OLSEN RN TIME WAS 1315
[2020-04-01 13:00] VITALS: BP 140/95
--- NOTE | 2020-04-01 13:04 | NUR ---
THIS RN SPOKE TO DR. ANTHONY ABOUT PT,.'S TRIPLE LUMEN CATH COMING OUT AND NOT BEING ABLE TO CONTINUE THE TPN INFUSION. PER DR. ANTHONY, NO ON PICC LINE FOR NOW. KEEP PT. ON FULL LIQUID DIET.
--- NOTE | 2020-04-01 16:44 | NUR ---
NEW IV INSERTED (20 G) IN LEFT UPPER ARM. IT IS PATENT AND PT. TOLERATED PROCEDURE WELL.
[2020-04-01 17:00] VITALS: BP 139/88
--- NOTE | 2020-04-01 18:20 | NUR ---
iv inserted 20 g RFA. pt. tolerated procedure well.
[2020-04-01] MEDS ORDERED: TPN PER PHARMACY IV NR ×10 (20:00)
[2020-04-01 22:38] VITALS: BP 132/99
[2020-04-02] MEDS: ACCU-CHEK COMFORT CURVE STRIP VI SCH ×2 (00:23→06:02)
[2020-04-02] MEDS: MORPHINE SULFATE 4 MG/ML SYR/VIAL IV PRN ×4 (03:51→23:24)
[2020-04-02 05:38] VITALS: BP 133/90
[2020-04-02] MEDS: InsuLIN REG 1unit/0.01ml Soln (100units/ml) SC SCH ×2 (06:00)
[2020-04-02] MEDS: metroNIDAZOLE 500MG/100ML 100 ML IV SCH (06:14)
[2020-04-02 07:39] LABS: Albumin 2.4 g/dL (3.4-5.0); Calcium 8.5 mg/dL (8.5-10.1); Magnesium 2.1 mg/dL (1.6-2.6); Potassium 4.1 mmol/L (3.5-5.1)
--- NOTE | 2020-04-02 07:40 | NUR ---
OPENING NOTE Received report from NOC shift RN. Assumed care of patient, awake and alert. No s/s of distress or SOB, patient denies pain at this time. Respirations are even/unlabored. Updated patient on POC and instructed to call for assistance when needed. Patient verbalized understanding. Bed is locked in lowest position with side rails up X's 2 and call light is within reach of patient. Will continue to monitor for changes.
[2020-04-02 07:43] LABS: BUN/Creatinine Ratio 12.6; Bilirubin, Total 0.2 mg/dL (0.2-1.0); Phosphorus 4.4 mg/dL (2.5-4.90); Total Protein 6.4 g/dL (6.4-8.2)
[2020-04-02 09:00] VITALS: BP 101/67
[2020-04-02] MEDS: levoFLOXacin 500MG 100 ML IV SCH (10:00)
[2020-04-02] MEDS: ENOXAPARIN SOD 60 MG/0.6 ML SYRINGE SC SCH (10:00)
[2020-04-02] MEDS ORDERED: levoFLOXacin 500 MG TAB PO ONE (10:30)
[2020-04-02] MEDS: PANTOPRAZOLE 40 MG/10 ML VIAL INJ IV SCH (10:31)
[2020-04-02 13:00] VITALS: BP 133/95
[2020-04-02] MEDS: ONDANSETRON HCL 4 MG/2 ML VIAL IV PRN ×2 (14:14→20:32)
[2020-04-02] MEDS: metroNIDAZOLE 500 MG TAB PO SCH ×2 (14:14→22:02)
[2020-04-02 17:17] VITALS: BP 142/83
--- NOTE | 2020-04-02 19:50 | NUR ---
Opening Shift Note Assumed care of patient, awake and alert. No S/S of distress/SOB or pain. Instructed on POC and to call for assist PRN, will continue to monitor for changes Q1hr and PRN. Bed locked and in lowest position with call light in reach.
[2020-04-02] MEDS ORDERED: TPN PER PHARMACY IV NR ×10 (20:00)
[2020-04-02 22:00] VITALS: BP 132/93
[2020-04-03] MEDS: ONDANSETRON HCL 4 MG/2 ML VIAL IV PRN ×2 (03:27→08:47)
[2020-04-03] MEDS: MORPHINE SULFATE 4 MG/ML SYR/VIAL IV PRN ×2 (04:00→08:47)
[2020-04-03 05:00] VITALS: BP 135/75
[2020-04-03] MEDS: metroNIDAZOLE 500 MG TAB PO SCH (05:57)
--- NOTE | 2020-04-03 08:00 | NUR ---
IV insertion IV access obtained, via clean sterile technique by inserting 22 gauge catheter at LEFT FOREARM after 1 attempt. IV secured properly. No trauma to site. Patient tolerated well.
[2020-04-03 08:51] VITALS: BP 139/96
[2020-04-03 08:53] VITALS: BP 113/67
[2020-04-03 09:30] LABS: Basophils # (auto) 0.1 10 ^3/uL (0-0.2); Basophils % (auto) 1.4 % (0.0-2.0); Eosinophils # (auto) 0.3 10 ^3/uL (0-0.8); Eosinophils % (auto) 4.6 % (0.0-7.0); Hematocrit 26.2 % (41.0-53.0); Hemoglobin 8.8 g/dL (13.5-17.5); Lymphocytes # (auto) 1.7 10 ^3/uL (0.4-5.4); Lymphocytes % (auto) 29.7 % (10.0-50.0); Mean Corpuscular Hemoglobin 30.4 pg (28.0-32.0); Mean Corpuscular Hgb Conc. 33.7 g/dL (32.0-36.0); Mean Corpuscular Volume 90.2 fL (80.0-100.0); Monocytes # (auto) 0.6 10 ^3/uL (0-1.3); Monocytes % (auto) 9.7 % (0.0-12.0); Neutrophils # (auto) 3.1 10 ^3/uL (1.6-8.6); Neutrophils % (auto) 54.6 % (37.0-80.0); Platelet Count (auto) 349 10^3/uL (140-450); Red Blood Cells 2.91 10^6/uL (4.5-5.90); Red Cell Distribution Width 14.7 % (11.8-14.3); White Blood Cell 5.7 10^3/uL (4.4-10.8)
[2020-04-03] MEDS ORDERED: levoFLOXacin 500 MG TAB PO SCH (10:00)
[2020-04-03] MEDS ORDERED: PANTOPRAZOLE 40 MG TAB PO SCH (10:00)
[2020-04-03 10:38] LABS: Albumin 2.5 g/dL (3.4-5.0); BUN/Creatinine Ratio 10.9; Bilirubin, Total 0.2 mg/dL (0.2-1.0); Calcium 8.9 mg/dL (8.5-10.1); Phosphorus 4.6 mg/dL (2.5-4.90); Total Protein 6.5 g/dL (6.4-8.2)
--- NOTE | 2020-04-03 13:40 | NUR ---
MRSA SWAB SENT TO LAB.
--- NOTE | 2020-04-03 13:50 | NUR ---
DISCHARGE HOME Discharge instructions given as ordered. Encourage to follow up with PMD, DR JENSEN, AND DR NUÑEZ as instructed. All questions and concerns addressed. Patient verbalized understanding. Medication reconciliation form completed and copy given to patient. IV removed with catheter intact, pressure dressing applied. Telemetry unit returned to ICU. Patient taken to front lobby via wheelchair with all personal belongings, accompanied by staff. No distress noted at time of departure.
[2020-04-04 12:25] VITALS: BP 139/88
== END 2020-04-03 13:50 | disposition home or self-care (01) | DRG 853 ==
LOC: EDBD 03:54 → ER 03:55 → TELE 03:56 → ICU WEST 11:50 → TELE-CENTR 03-16 18:25 → CATH ICU 03-27 20:16 → TELE-WESTW 03-28 15:58
PROVIDERS: ADMIT Hospitalist; ATTEND Internal Medicine
PROC: 5A12012 Performance of Cardiac Output, Single, Manual (ICD-10-PCS; 2020-03-12)
PROC: 5A1945Z Respiratory Ventilation, 24-96 Consecutive Hours (ICD-10-PCS; 2020-03-12)
PROC: 0BH17EZ Insertion of Endotracheal Airway into Trachea, Via Natural or Artificial Opening (ICD-10-PCS; 2020-03-12)
PROC: 02HV33Z Insertion of Infusion Device into Superior Vena Cava, Percutaneous Approach (ICD-10-PCS; 2020-03-13)
PROC: 4A143B0 Monitoring of Venous Pressure, Central, Percutaneous Approach (ICD-10-PCS; 2020-03-13)
PROC: 0DBL8ZX Excision of Transverse Colon, Via Natural or Artificial Opening Endoscopic, Diagnostic (ICD-10-PCS; 2020-03-16)
PROC: 0DBM8ZX Excision of Descending Colon, Via Natural or Artificial Opening Endoscopic, Diagnostic (ICD-10-PCS; 2020-03-16)
PROC: 0DBN8ZX Excision of Sigmoid Colon, Via Natural or Artificial Opening Endoscopic, Diagnostic (ICD-10-PCS; 2020-03-16)
PROC: 0DJ08ZZ Inspection of Upper Intestinal Tract, Via Natural or Artificial Opening Endoscopic (ICD-10-PCS; 2020-03-16)
PROC: 0DB80ZZ Excision of Small Intestine, Open Approach (ICD-10-PCS; 2020-03-27)
PROC: 0D180Z8 Bypass Small Intestine to Small Intestine, Open Approach (ICD-10-PCS; principal; 2020-03-27 14:21)
PROC: 30233N1 Transfusion of Nonautologous Red Blood Cells into Peripheral Vein, Percutaneous Approach (ICD-10-PCS; 2020-03-29)
DX: A41.9 Sepsis, unspecified organism (principal); J15.5 Pneumonia due to Escherichia coli; K72.00 Acute and subacute hepatic failure without coma; I26.99 Other pulmonary embolism without acute cor pulmonale; J96.01 Acute respiratory failure with hypoxia; R65.21 Severe sepsis with septic shock; N17.0 Acute kidney failure with tubular necrosis; I46.9 Cardiac arrest, cause unspecified; E43 Unspecified severe protein-calorie malnutrition; A04.72 Enterocolitis due to Clostridium difficile, not specified as recurrent; C17.9 Malignant neoplasm of small intestine, unspecified; B17.9 Acute viral hepatitis, unspecified; I82.402 Acute embolism and thrombosis of unspecified deep veins of left lower extremity; K56.600 Partial intestinal obstruction, unspecified as to cause; R73.9 Hyperglycemia, unspecified; K64.8 Other hemorrhoids; I12.9 Hypertensive chronic kidney disease with stage 1 through stage 4 chronic kidney disease, or unspecified chronic kidney disease; F17.210 Nicotine dependence, cigarettes, uncomplicated; K21.9 Gastro-esophageal reflux disease without esophagitis; M10.9 Gout, unspecified; Z20.828 Contact with and (suspected) exposure to other viral communicable diseases; E87.6 Hypokalemia; N18.30 Chronic kidney disease, stage 3 unspecified; R31.9 Hematuria, unspecified; R80.9 Proteinuria, unspecified; E78.5 Hyperlipidemia, unspecified; E87.5 Hyperkalemia; K63.5 Polyp of colon; D64.9 Anemia, unspecified; Z68.23 Body mass index [BMI] 23.0-23.9, adult; Z88.0 Allergy status to penicillin; Z79.899 Other long term (current) drug therapy; Z79.01 Long term (current) use of anticoagulants; K57.90 Diverticulosis of intestine, part unspecified, without perforation or abscess without bleeding
CPT/HCPCS: 31500; 36415; 36600; 43235; 45380; 51702; 70450; 71045; 71250; 71260; 74018; 74176; 74177; 74250; 76705; 80048; 80053; 80074; 80076; 81001; 82040; 82150; 82378; 82728; 82805; 82962; 83540; 83550; 83605; 83615; 83690; 83735; 83880; 84100; 84132; 84478; 84484; 85025; 85379; 85610; 85730; 86301; 86703; 86850; 86900; 86901; 86920; 87040; 87070; 87077; 87081; 87086; 87186; 87205; 87426; 87493; 90935; 92950; 93005; 93306; 93970; 94002; 94003; 94640; 96361; 96365; 96368; 97110; 97116; 97163; 97530; 99291; A4618; C9113; G0378; J0610; J0696; J1815; J1956; J2185; J2250; J2405; J2704; J3480; J3490; J7060; J7131

== ENCOUNTER → 2020-04-11 | Outpatient (CLI) | payer OTHER ==
[~2020-04-11] MED LIST changes: +ATOR40TA52 PO; +BENA20TA14 PO; -BENA40TA7 PO; +METO5TAB2 PO; +ONDA-143 PO; +PANT40T PO
[2020-04-11 10:41] LABS: Basophils # (auto) 0.1 10 ^3/uL (0-0.2); Eosinophils # (auto) 0.3 10 ^3/uL (0-0.8); Hemoglobin 10.5 g/dL (13.5-17.5); Lymphocytes # (auto) 3.4 10 ^3/uL (0.4-5.4); Monocytes # (auto) 0.5 10 ^3/uL (0-1.3); Neutrophils # (auto) 3.1 10 ^3/uL (1.6-8.6); White Blood Cell 7.4 10^3/uL (4.4-10.8)
[2020-04-11 10:42] LABS: Basophils % (auto) 1.1 % (0.0-2.0); Eosinophils % (auto) 4.3 % (0.0-7.0); Hematocrit 31.4 % (41.0-53.0); Lymphocytes % (auto) 46.1 % (10.0-50.0); Mean Corpuscular Hemoglobin 30.4 pg (28.0-32.0); Mean Corpuscular Hgb Conc. 33.4 g/dL (32.0-36.0); Mean Corpuscular Volume 90.9 fL (80.0-100.0); Monocytes % (auto) 6.5 % (0.0-12.0); Platelet Count (auto) 455 10^3/uL (140-450); Red Blood Cells 3.46 10^6/uL (4.5-5.90); Red Cell Distribution Width 15.1 % (11.8-14.3)
[2020-04-11 11:26] LABS: Uric Acid 6.1 mg/dL (3.5-7.2)
== END | disposition home or self-care (01) ==
LOC: LAB 10:17
PROVIDERS: ATTEND Internal Medicine
DX: I10 Essential (primary) hypertension (principal); E87.6 Hypokalemia; E87.5 Hyperkalemia; M10.9 Gout, unspecified; D64.9 Anemia, unspecified
CPT/HCPCS: 36415; 80061; 83036; 84550; 85025; 85652

== ENCOUNTER → 2020-04-30 | Outpatient (CLI) | payer OTHER ==
[2020-04-30 10:39] LABS: Basophils # (auto) 0 10 ^3/uL (0-0.2); Basophils % (auto) 0.4 % (0.0-2.0); Eosinophils # (auto) 0.2 10 ^3/uL (0-0.8); Eosinophils % (auto) 2.7 % (0.0-7.0); Hematocrit 37.3 % (41.0-53.0); Hemoglobin 12.4 g/dL (13.5-17.5); Lymphocytes # (auto) 3.7 10 ^3/uL (0.4-5.4); Lymphocytes % (auto) 50.6 % (10.0-50.0); Mean Corpuscular Hemoglobin 30.7 pg (28.0-32.0); Mean Corpuscular Hgb Conc. 33.3 g/dL (32.0-36.0); Mean Corpuscular Volume 92.3 fL (80.0-100.0); Monocytes # (auto) 0.4 10 ^3/uL (0-1.3); Monocytes % (auto) 5.8 % (0.0-12.0); Neutrophils # (auto) 2.9 10 ^3/uL (1.6-8.6); Neutrophils % (auto) 40.5 % (37.0-80.0); Nucleated Red Blood Cells % 0.1 %; Platelet Count (auto) 342 10^3/uL (140-450); Red Blood Cells 4.04 10^6/uL (4.5-5.90); Red Cell Distribution Width 15.5 % (11.8-14.3); White Blood Cell 7.2 10^3/uL (4.4-10.8)
[2020-04-30 11:31] LABS: Potassium 3.8 mmol/L (3.5-5.1)
[2020-04-30 11:49] LABS: Albumin 3.1 g/dL (3.4-5.0); BUN/Creatinine Ratio 9.5; Bilirubin, Total 0.2 mg/dL (0.2-1.0); Calcium 9.4 mg/dL (8.5-10.1); Total Protein 7.8 g/dL (6.4-8.2)
== END | disposition home or self-care (01) ==
LOC: LAB 10:12
PROVIDERS: ATTEND Internal Medicine
DX: C17.9 Malignant neoplasm of small intestine, unspecified (principal); Z88.0 Allergy status to penicillin
CPT/HCPCS: 36415; 80053; 82378; 83615; 85025; 86301

== ENCOUNTER → 2020-06-18 | Outpatient (CLI) | payer OTHER ==
[2020-06-18 11:53] LABS: Basophils # (auto) 0.1 10 ^3/uL (0-0.2); Eosinophils # (auto) 0.1 10 ^3/uL (0-0.8); Eosinophils % (auto) 2.1 % (0.0-7.0); Hematocrit 42.2 % (41.0-53.0); Hemoglobin 14.2 g/dL (13.5-17.5); Lymphocytes # (auto) 2.4 10 ^3/uL (0.4-5.4); Lymphocytes % (auto) 40.6 % (10.0-50.0); Mean Corpuscular Hemoglobin 30.3 pg (28.0-32.0); Mean Corpuscular Hgb Conc. 33.6 g/dL (32.0-36.0); Mean Corpuscular Volume 90.2 fL (80.0-100.0); Monocytes # (auto) 0.4 10 ^3/uL (0-1.3); Monocytes % (auto) 6.4 % (0.0-12.0); Neutrophils # (auto) 2.9 10 ^3/uL (1.6-8.6); Neutrophils % (auto) 49.9 % (37.0-80.0); Nucleated Red Blood Cells % 0.1 %; Platelet Count (auto) 414 10^3/uL (140-450); Red Blood Cells 4.68 10^6/uL (4.5-5.90); Red Cell Distribution Width 14.6 % (11.8-14.3); White Blood Cell 5.9 10^3/uL (4.4-10.8)
[2020-06-18 12:19] LABS: INR 2.63 (0.9-1.15)
[2020-06-18 12:27] LABS: Albumin 3.1 g/dL (3.4-5.0); BUN/Creatinine Ratio 6.9; Bilirubin, Total 0.3 mg/dL (0.2-1.0); Total Protein 8.1 g/dL (6.4-8.2)
[2020-06-18 14:09] LABS: Potassium 2.7 mmol/L (3.5-5.1)
== END | disposition home or self-care (01) ==
LOC: LAB 10:45
PROVIDERS: ATTEND Internal Medicine
DX: C17.9 Malignant neoplasm of small intestine, unspecified (principal); Z88.0 Allergy status to penicillin
CPT/HCPCS: 36415; 80053; 82378; 83615; 85025; 85610; 86301

== ENCOUNTER → 2020-06-21 | Outpatient (CLI) | payer OTHER ==
[2020-06-21 09:52] LABS: Hematocrit 44.4 % (41.0-53.0); Hemoglobin 14.7 g/dL (13.5-17.5); Mean Corpuscular Hemoglobin 29.7 pg (28.0-32.0); Mean Corpuscular Hgb Conc. 33.1 g/dL (32.0-36.0); Mean Corpuscular Volume 89.7 fL (80.0-100.0); Platelet Count (auto) 415 10^3/uL (140-450); Red Blood Cells 4.95 10^6/uL (4.5-5.90); Red Cell Distribution Width 14.6 % (11.8-14.3); White Blood Cell 4.8 10^3/uL (4.4-10.8)
[2020-06-21 10:01] LABS: INR 2.28 (0.9-1.15); Partial Thromboplastin Time 35.4 sec (23.0-31.2)
[2020-06-21 10:15] LABS: Albumin 3.3 g/dL (3.4-5.0); Calcium 8.4 mg/dL (8.5-10.1)
[2020-06-21 10:18] LABS: BUN/Creatinine Ratio 5.4; Bilirubin, Total 0.4 mg/dL (0.2-1.0); Total Protein 8.5 g/dL (6.4-8.2)
[2020-06-21 10:30] LABS: Basophils % (manual) 0 (0.0-2.0); Blast Cells 0; Metamyelocytes % 0; Myelocytes % 0; Promyelocytes % 0
[2020-06-21 12:59] LABS: Band Neutrophils % (manual) 1; Eosinophils % (manual) 3 (0-7); Lymphocytes % (manual) 64 (10.0-50.0); Monocytes % (manual) 4 (0-12); Reactive Lymphocytes 7
== END | disposition home or self-care (01) ==
LOC: LAB 09:20
PROVIDERS: ATTEND Internal Medicine
DX: C17.9 Malignant neoplasm of small intestine, unspecified (principal)
CPT/HCPCS: 36415; 80053; 82378; 83615; 85007; 85027; 85610; 85730; 86301

== ENCOUNTER → 2020-06-25 | Outpatient (CLI) | payer OTHER ==
[2020-06-25 12:49] LABS: Basophils # (auto) 0.1 10 ^3/uL (0-0.2); Basophils % (auto) 1.2 % (0.0-2.0); Eosinophils # (auto) 0.1 10 ^3/uL (0-0.8); Eosinophils % (auto) 1.1 % (0.0-7.0); Hematocrit 44.1 % (41.0-53.0); Hemoglobin 14.6 g/dL (13.5-17.5); Lymphocytes # (auto) 2.2 10 ^3/uL (0.4-5.4); Lymphocytes % (auto) 43.8 % (10.0-50.0); Mean Corpuscular Hemoglobin 29.3 pg (28.0-32.0); Mean Corpuscular Volume 88.8 fL (80.0-100.0); Monocytes # (auto) 0.3 10 ^3/uL (0-1.3); Monocytes % (auto) 6.3 % (0.0-12.0); Neutrophils # (auto) 2.4 10 ^3/uL (1.6-8.6); Neutrophils % (auto) 47.6 % (37.0-80.0); Nucleated Red Blood Cells % 0.1 %; Platelet Count (auto) 348 10^3/uL (140-450); Red Blood Cells 4.97 10^6/uL (4.5-5.90); Red Cell Distribution Width 14.2 % (11.8-14.3); White Blood Cell 5.1 10^3/uL (4.4-10.8)
[2020-06-25 12:59] LABS: INR 2.01 (0.9-1.15)
[2020-06-25 13:36] LABS: Potassium 3.3 mmol/L (3.5-5.1)
[2020-06-25 13:56] LABS: Albumin 3.4 g/dL (3.4-5.0); BUN/Creatinine Ratio 6.5; Bilirubin, Total 0.5 mg/dL (0.2-1.0); Calcium 9.5 mg/dL (8.5-10.1); Total Protein 8.8 g/dL (6.4-8.2)
== END | disposition home or self-care (01) ==
LOC: LAB 11:26
PROVIDERS: ATTEND Internal Medicine
DX: C17.9 Malignant neoplasm of small intestine, unspecified (principal); Z88.0 Allergy status to penicillin
CPT/HCPCS: 36415; 80053; 82378; 83615; 85025; 85610; 86301

== ENCOUNTER → 2020-06-29 | Outpatient (CLI) | payer OTHER ==
[2020-06-29 10:30] LABS: Basophils # (auto) 0.1 10 ^3/uL (0-0.2); Basophils % (auto) 1.2 % (0.0-2.0); Eosinophils # (auto) 0.1 10 ^3/uL (0-0.8); Eosinophils % (auto) 2.2 % (0.0-7.0); Hemoglobin 14.4 g/dL (13.5-17.5); Lymphocytes # (auto) 3.1 10 ^3/uL (0.4-5.4); Lymphocytes % (auto) 53.9 % (10.0-50.0); Mean Corpuscular Hemoglobin 29.9 pg (28.0-32.0); Mean Corpuscular Hgb Conc. 33.6 g/dL (32.0-36.0); Mean Corpuscular Volume 89.2 fL (80.0-100.0); Monocytes # (auto) 0.4 10 ^3/uL (0-1.3); Neutrophils # (auto) 2.1 10 ^3/uL (1.6-8.6); Neutrophils % (auto) 36.7 % (37.0-80.0); Nucleated Red Blood Cells % 0.2 %; Platelet Count (auto) 289 10^3/uL (140-450); Red Blood Cells 4.82 10^6/uL (4.5-5.90); Red Cell Distribution Width 14.5 % (11.8-14.3); White Blood Cell 5.8 10^3/uL (4.4-10.8)
[2020-06-29 10:43] LABS: INR 1.73 (0.9-1.15)
[2020-06-29 11:04] LABS: Albumin 3.3 g/dL (3.4-5.0); Calcium 9.1 mg/dL (8.5-10.1); Potassium 3.7 mmol/L (3.5-5.1)
[2020-06-29 11:07] LABS: BUN/Creatinine Ratio 9.1; Bilirubin, Total 0.3 mg/dL (0.2-1.0); Total Protein 8.3 g/dL (6.4-8.2)
== END | disposition home or self-care (01) ==
LOC: LAB 10:10
PROVIDERS: ATTEND Internal Medicine
DX: C17.9 Malignant neoplasm of small intestine, unspecified (principal); Z88.0 Allergy status to penicillin
CPT/HCPCS: 36415; 80053; 82378; 83615; 85025; 85610

== ENCOUNTER → 2020-07-20 | Outpatient (CLI) | payer OTHER ==
[2020-07-20 10:22] LABS: Basophils # (auto) 0.1 10 ^3/uL (0-0.2); Eosinophils # (auto) 0.2 10 ^3/uL (0-0.8); Eosinophils % (auto) 2.5 % (0.0-7.0); Hematocrit 41.3 % (41.0-53.0); Hemoglobin 13.6 g/dL (13.5-17.5); Lymphocytes # (auto) 2.9 10 ^3/uL (0.4-5.4); Lymphocytes % (auto) 46.7 % (10.0-50.0); Mean Corpuscular Hemoglobin 29.3 pg (28.0-32.0); Mean Corpuscular Volume 88.8 fL (80.0-100.0); Monocytes # (auto) 0.5 10 ^3/uL (0-1.3); Monocytes % (auto) 7.9 % (0.0-12.0); Neutrophils # (auto) 2.5 10 ^3/uL (1.6-8.6); Neutrophils % (auto) 40.9 % (37.0-80.0); Nucleated Red Blood Cells % 0.2 %; Platelet Count (auto) 319 10^3/uL (140-450); Red Blood Cells 4.66 10^6/uL (4.5-5.90); Red Cell Distribution Width 15.8 % (11.8-14.3); White Blood Cell 6.2 10^3/uL (4.4-10.8)
[2020-07-20 11:42] LABS: Potassium 3.7 mmol/L (3.5-5.1)
[2020-07-20 11:56] LABS: Albumin 3.2 g/dL (3.4-5.0); BUN/Creatinine Ratio 9.1; Bilirubin, Total 0.2 mg/dL (0.2-1.0); Calcium 8.8 mg/dL (8.5-10.1); Total Protein 7.8 g/dL (6.4-8.2)
== END | disposition home or self-care (01) ==
LOC: LAB 09:40
PROVIDERS: ATTEND Internal Medicine
DX: C17.9 Malignant neoplasm of small intestine, unspecified (principal); Z88.0 Allergy status to penicillin
CPT/HCPCS: 36415; 80053; 83615; 85025

== ENCOUNTER → 2020-08-10 | Outpatient (CLI) | payer OTHER ==
[2020-08-10 15:48] LABS: Basophils # (auto) 0.1 10 ^3/uL (0-0.2); Basophils % (auto) 1.3 % (0.0-2.0); Eosinophils # (auto) 0.3 10 ^3/uL (0-0.8); Eosinophils % (auto) 3.5 % (0.0-7.0); Hematocrit 40.3 % (41.0-53.0); Hemoglobin 13.7 g/dL (13.5-17.5); Lymphocytes % (auto) 34.7 % (10.0-50.0); Mean Corpuscular Hemoglobin 30.2 pg (28.0-32.0); Mean Corpuscular Hgb Conc. 34.1 g/dL (32.0-36.0); Mean Corpuscular Volume 88.7 fL (80.0-100.0); Monocytes # (auto) 0.8 10 ^3/uL (0-1.3); Monocytes % (auto) 9.8 % (0.0-12.0); Neutrophils # (auto) 4.4 10 ^3/uL (1.6-8.6); Neutrophils % (auto) 50.7 % (37.0-80.0); Nucleated Red Blood Cells % 0.1 %; Platelet Count (auto) 352 10^3/uL (140-450); Red Blood Cells 4.54 10^6/uL (4.5-5.90); Red Cell Distribution Width 17.2 % (11.8-14.3); White Blood Cell 8.6 10^3/uL (4.4-10.8)
[2020-08-10 16:21] LABS: Albumin 3.2 g/dL (3.4-5.0); Calcium 8.8 mg/dL (8.5-10.1); Potassium 3.3 mmol/L (3.5-5.1)
[2020-08-10 16:25] LABS: BUN/Creatinine Ratio 6.1; Bilirubin, Total 0.5 mg/dL (0.2-1.0); Total Protein 8.1 g/dL (6.4-8.2)
== END | disposition home or self-care (01) ==
LOC: LAB 15:33
PROVIDERS: ATTEND Internal Medicine
DX: C17.9 Malignant neoplasm of small intestine, unspecified (principal); Z88.0 Allergy status to penicillin
CPT/HCPCS: 36415; 80053; 83615; 85025

== ENCOUNTER → 2020-08-16 | Outpatient (CLI) | payer OTHER ==
[2020-08-16 10:14] LABS: Basophils # (auto) 0.1 10 ^3/uL (0-0.2); Basophils % (auto) 2.1 % (0.0-2.0); Eosinophils # (auto) 0.2 10 ^3/uL (0-0.8); Eosinophils % (auto) 3.6 % (0.0-7.0); Hematocrit 43.8 % (41.0-53.0); Hemoglobin 14.7 g/dL (13.5-17.5); Lymphocytes # (auto) 2.9 10 ^3/uL (0.4-5.4); Mean Corpuscular Hemoglobin 30.1 pg (28.0-32.0); Mean Corpuscular Hgb Conc. 33.6 g/dL (32.0-36.0); Mean Corpuscular Volume 89.8 fL (80.0-100.0); Monocytes # (auto) 0.6 10 ^3/uL (0-1.3); Neutrophils # (auto) 1.8 10 ^3/uL (1.6-8.6); Neutrophils % (auto) 32.3 % (37.0-80.0); Nucleated Red Blood Cells % 0.2 %; Platelet Count (auto) 357 10^3/uL (140-450); Red Blood Cells 4.88 10^6/uL (4.5-5.90); Red Cell Distribution Width 17.7 % (11.8-14.3); White Blood Cell 5.5 10^3/uL (4.4-10.8)
[2020-08-16 10:27] LABS: INR 1.95 (0.9-1.15)
[2020-08-16 11:02] LABS: Albumin 3.3 g/dL (3.4-5.0); Calcium 9.1 mg/dL (8.5-10.1); Potassium 3.5 mmol/L (3.5-5.1)
[2020-08-16 11:05] LABS: Bilirubin, Total 0.9 mg/dL (0.2-1.0); Total Protein 8.4 g/dL (6.4-8.2)
== END | disposition home or self-care (01) ==
LOC: LAB 09:49
PROVIDERS: ATTEND Internal Medicine
DX: C17.9 Malignant neoplasm of small intestine, unspecified (principal); Z88.0 Allergy status to penicillin
CPT/HCPCS: 36415; 80053; 82378; 83615; 85025; 85610

== ENCOUNTER → 2020-08-21 | Outpatient (CLI) | payer OTHER ==
[2020-08-21 09:55] LABS: Basophils # (auto) 0.1 10 ^3/uL (0-0.2); Basophils % (auto) 1.3 % (0.0-2.0); Eosinophils # (auto) 0.4 10 ^3/uL (0-0.8); Eosinophils % (auto) 6.5 % (0.0-7.0); Hematocrit 40.3 % (41.0-53.0); Hemoglobin 13.5 g/dL (13.5-17.5); Lymphocytes # (auto) 3.2 10 ^3/uL (0.4-5.4); Lymphocytes % (auto) 46.7 % (10.0-50.0); Mean Corpuscular Hemoglobin 30.4 pg (28.0-32.0); Mean Corpuscular Hgb Conc. 33.6 g/dL (32.0-36.0); Mean Corpuscular Volume 90.4 fL (80.0-100.0); Monocytes # (auto) 0.9 10 ^3/uL (0-1.3); Monocytes % (auto) 12.6 % (0.0-12.0); Neutrophils # (auto) 2.2 10 ^3/uL (1.6-8.6); Neutrophils % (auto) 32.9 % (37.0-80.0); Platelet Count (auto) 300 10^3/uL (140-450); Red Blood Cells 4.46 10^6/uL (4.5-5.90); White Blood Cell 6.8 10^3/uL (4.4-10.8)
[2020-08-21 10:31] LABS: Albumin 3.2 g/dL (3.4-5.0); Potassium 3.4 mmol/L (3.5-5.1)
[2020-08-21 10:37] LABS: BUN/Creatinine Ratio 6.5; Bilirubin, Total 0.4 mg/dL (0.2-1.0); Calcium 8.7 mg/dL (8.5-10.1)
== END | disposition home or self-care (01) ==
LOC: LAB 09:33
PROVIDERS: ATTEND Internal Medicine
DX: C17.9 Malignant neoplasm of small intestine, unspecified (principal); Z88.0 Allergy status to penicillin
CPT/HCPCS: 36415; 80053; 83615; 85025

== ENCOUNTER → 2020-08-31 | Outpatient (CLI) | payer OTHER ==
[2020-08-31 09:54] LABS: Basophils # (auto) 0.1 10 ^3/uL (0-0.2); Basophils % (auto) 1.1 % (0.0-2.0); Eosinophils # (auto) 0.3 10 ^3/uL (0-0.8); Eosinophils % (auto) 4.4 % (0.0-7.0); Hemoglobin 13.3 g/dL (13.5-17.5); Lymphocytes # (auto) 2.8 10 ^3/uL (0.4-5.4); Lymphocytes % (auto) 47.5 % (10.0-50.0); Mean Corpuscular Hemoglobin 30.9 pg (28.0-32.0); Mean Corpuscular Volume 90.8 fL (80.0-100.0); Monocytes # (auto) 0.7 10 ^3/uL (0-1.3); Monocytes % (auto) 11.6 % (0.0-12.0); Neutrophils # (auto) 2.1 10 ^3/uL (1.6-8.6); Neutrophils % (auto) 35.4 % (37.0-80.0); Nucleated Red Blood Cells % 0.2 %; Platelet Count (auto) 330 10^3/uL (140-450); White Blood Cell 5.9 10^3/uL (4.4-10.8)
[2020-08-31 10:13] LABS: Potassium 3.5 mmol/L (3.5-5.1)
[2020-08-31 10:23] LABS: Albumin 3.2 g/dL (3.4-5.0); BUN/Creatinine Ratio 6.5; Bilirubin, Total 0.5 mg/dL (0.2-1.0); Calcium 8.4 mg/dL (8.5-10.1); Total Protein 7.9 g/dL (6.4-8.2)
== END | disposition home or self-care (01) ==
LOC: LAB 09:13
PROVIDERS: ATTEND Internal Medicine
DX: C17.9 Malignant neoplasm of small intestine, unspecified (principal); Z88.0 Allergy status to penicillin
CPT/HCPCS: 36415; 80053; 83615; 85025

== ENCOUNTER → 2020-09-12 | Outpatient (CLI) | payer OTHER ==
[2020-09-12 13:02] LABS: Basophils # (auto) 0.1 10 ^3/uL (0-0.2); Eosinophils # (auto) 0.2 10 ^3/uL (0-0.8); Eosinophils % (auto) 2.5 % (0.0-7.0); Hematocrit 36.6 % (41.0-53.0); Hemoglobin 12.5 g/dL (13.5-17.5); Lymphocytes # (auto) 2.9 10 ^3/uL (0.4-5.4); Lymphocytes % (auto) 44.7 % (10.0-50.0); Mean Corpuscular Hemoglobin 31.9 pg (28.0-32.0); Mean Corpuscular Hgb Conc. 34.1 g/dL (32.0-36.0); Mean Corpuscular Volume 93.4 fL (80.0-100.0); Monocytes # (auto) 0.7 10 ^3/uL (0-1.3); Monocytes % (auto) 11.4 % (0.0-12.0); Neutrophils # (auto) 2.6 10 ^3/uL (1.6-8.6); Neutrophils % (auto) 40.4 % (37.0-80.0); Nucleated Red Blood Cells % 0.3 %; Platelet Count (auto) 250 10^3/uL (140-450); Red Blood Cells 3.92 10^6/uL (4.5-5.90); White Blood Cell 6.5 10^3/uL (4.4-10.8)
[2020-09-12 13:06] LABS: Red Cell Distribution Width 23.4 % (11.8-14.3)
[2020-09-12 13:45] LABS: Calcium 8.6 mg/dL (8.5-10.1); Potassium 3.2 mmol/L (3.5-5.1)
[2020-09-12 13:51] LABS: Albumin 3.2 g/dL (3.4-5.0); BUN/Creatinine Ratio 8.5; Bilirubin, Total 0.6 mg/dL (0.2-1.0); Total Protein 7.7 g/dL (6.4-8.2)
== END | disposition home or self-care (01) ==
LOC: LAB 12:02
PROVIDERS: ATTEND Internal Medicine
DX: C17.9 Malignant neoplasm of small intestine, unspecified (principal)
CPT/HCPCS: 36415; 80053; 83615; 85025

== ENCOUNTER → 2020-09-17 | Outpatient (CLI) | payer OTHER ==
[2020-09-17 08:15] LABS: Basophils # (auto) 0.2 10 ^3/uL (0-0.2); Basophils % (auto) 2.6 % (0.0-2.0); Eosinophils # (auto) 0.2 10 ^3/uL (0-0.8); Eosinophils % (auto) 3.4 % (0.0-7.0); Hematocrit 38.6 % (41.0-53.0); Hemoglobin 13.4 g/dL (13.5-17.5); Lymphocytes # (auto) 2.7 10 ^3/uL (0.4-5.4); Lymphocytes % (auto) 41.4 % (10.0-50.0); Mean Corpuscular Hemoglobin 32.7 pg (28.0-32.0); Mean Corpuscular Hgb Conc. 34.8 g/dL (32.0-36.0); Mean Corpuscular Volume 93.9 fL (80.0-100.0); Monocytes # (auto) 0.7 10 ^3/uL (0-1.3); Monocytes % (auto) 10.9 % (0.0-12.0); Neutrophils # (auto) 2.8 10 ^3/uL (1.6-8.6); Neutrophils % (auto) 41.7 % (37.0-80.0); Nucleated Red Blood Cells % 0.1 %; Platelet Count (auto) 263 10^3/uL (140-450); Red Blood Cells 4.11 10^6/uL (4.5-5.90); White Blood Cell 6.6 10^3/uL (4.4-10.8)
[2020-09-17 08:25] LABS: Red Cell Distribution Width 23.5 % (11.8-14.3)
[2020-09-17 08:40] LABS: Potassium 3.5 mmol/L (3.5-5.1)
[2020-09-17 08:47] LABS: Albumin 3.3 g/dL (3.4-5.0); BUN/Creatinine Ratio 8.3; Bilirubin, Total 0.6 mg/dL (0.2-1.0); Calcium 9.4 mg/dL (8.5-10.1); Total Protein 8.2 g/dL (6.4-8.2)
== END | disposition home or self-care (01) ==
LOC: LAB 08:00
PROVIDERS: ATTEND Internal Medicine
DX: I10 Essential (primary) hypertension (principal)
CPT/HCPCS: 36415; 80053; 85025

== ENCOUNTER → 2020-10-13 | Outpatient (CLI) | payer OTHER ==
[2020-10-13 08:43] LABS: Basophils # (auto) 0.1 10 ^3/uL (0-0.2); Basophils % (auto) 1.2 % (0.0-2.0); Eosinophils # (auto) 0.2 10 ^3/uL (0-0.8); Eosinophils % (auto) 3.8 % (0.0-7.0); Hematocrit 38.7 % (41.0-53.0); Hemoglobin 13.1 g/dL (13.5-17.5); Lymphocytes # (auto) 3.3 10 ^3/uL (0.4-5.4); Lymphocytes % (auto) 52.1 % (10.0-50.0); Mean Corpuscular Hemoglobin 33.5 pg (28.0-32.0); Mean Corpuscular Hgb Conc. 33.8 g/dL (32.0-36.0); Mean Corpuscular Volume 99.1 fL (80.0-100.0); Monocytes # (auto) 0.8 10 ^3/uL (0-1.3); Monocytes % (auto) 12.1 % (0.0-12.0); Neutrophils % (auto) 30.8 % (37.0-80.0); Nucleated Red Blood Cells % 0.1 %; Platelet Count (auto) 248 10^3/uL (140-450); White Blood Cell 6.4 10^3/uL (4.4-10.8)
[2020-10-13 09:00] LABS: Albumin 3.3 g/dL (3.4-5.0); BUN/Creatinine Ratio 6.1; Calcium 8.4 mg/dL (8.5-10.1); Potassium 3.3 mmol/L (3.5-5.1)
[2020-10-13 09:03] LABS: Bilirubin, Total 0.3 mg/dL (0.2-1.0); Total Protein 7.9 g/dL (6.4-8.2)
== END | disposition home or self-care (01) ==
LOC: LAB 08:28
PROVIDERS: ATTEND Internal Medicine
DX: I10 Essential (primary) hypertension (principal)
CPT/HCPCS: 36415; 80053; 85025